=== PATIENT | male | born 1970 | race Caucasian/White ===

== ENCOUNTER 2023-07-13 08:28 | Outpatient (REF) | payer SELFPAY ==
[2023-07-13 14:27] LABS: MANUAL DIFF FLAG NO
[2023-07-13 14:32] LABS: Basophils Percent Auto 0.4 % (0-2); Eosinophils Absolute Auto 0.1 X10*3/uL (0.0-0.4); Hematocrit 41.5 % (42.0-52.0); Hemoglobin 13.9 g/dl (14.0-18.0); Imm Gran Abs Auto 0.03 X10*3/uL (0.00-0.03); Imm Gran Pct Auto 0.4 % (0.0-0.4); Lymphocytes Absolute Auto 1.6 X10*3/uL (1.2-4.9); Lymphocytes Percent Auto 19.9 % (20-40); Mean Corpuscular HGB Conc 33.5 g/dl (31.0-36.0); Mean Corpuscular Hemoglobin 28.1 pg (27.0-33.0); Monocytes Absolute Auto 0.5 X10*3/uL (0.1-1.2); Monocytes Percent Auto 6.8 % (2-11); Neutrophils Absolute Auto 5.7 x10*3/uL (2.0-8.3); Neutrophils Percent Auto 71.5 % (45-73); Platelet Count 364 X10*3/uL (160-400); Red Blood Count 4.94 X10*6/uL (4.60-5.80); White Blood Count 7.9 X10*3/uL (4.8-10.8)
[2023-07-14 02:04] LABS: Alanine Aminotransferase 30 U/L (0-40); Albumin Level 4.5 g/dL (3.5-5.0); Alkaline Phosphatase 102 U/L (39-117); Anion Gap 13 (12-20); Aspartate Amino Transferase 25 U/L (5-37); Bilirubin Total 0.6 mg/dL (0.0-1.0); Blood Urea Nitrogen 16 mg/dL (9-16); Carbon Dioxide 22 mmol/L (22-29); Chloride 105 mmol/L (96-108); Cholesterol 100 mg/dL; Estimated Glomerular Filt Rate > 60; Glucose Fasting 100 mg/dL (60-99); HDL Cholesterol 33 mg/dL; LDL Cholesterol Calculated 57 mg/dl; Potassium 4.7 mmol/L (3.3-5.1); Sodium 135 mmol/L (135-145); Total Protein 7.2 g/dL (6.5-8.0); Triglycerides 50 mg/dL
[2023-07-14 02:35] LABS: Creatinine Urine 196.58 mg/dL; Microalbum/Creatinine Ratio Ur 44.2 ug/mg cr
[2023-07-14 05:18] LABS: HBS Num1 0.69 mIU/mL (0-7.99); HBsAGNum1 0.46 S/CO (0.00-0.99); HIV AB/AG Nonreactive (Nonreactive); HIV Num 1 0.06 S/CO (0.00-0.99); Hepatitis B Surface Antigen Negative (Negative); ~HepC Num1 0.06 S/CO (0.00-0.79); ~Hepatitis B Surface Antibody NONREACTIVE (Nonreactive); ~Hepatitis C Antibody Nonreactive (Nonreactive)
== END 2023-07-13 08:29 | disposition home or self-care (01) ==
LOC: HO.CHCLDS 08:28
PROVIDERS: Visit Provider Family Medicine
DX: Z11.4 Encounter for screening for human immunodeficiency virus [HIV] (principal); E11.65 Type 2 diabetes mellitus with hyperglycemia; Z79.4 Long term (current) use of insulin
CPT/HCPCS: 36415; 80053; 80061; 82043; 85025; 86706; 86803; 87340; 87389

== ENCOUNTER 2024-09-27 15:00 | Outpatient (AMB) | payer OTHER, SELFPAY ==
--- NOTE | 2024-09-27 15:17 | A.OFFVIS_ITS ---
Intake Visit Reasons: penile implant failure Intake Note: New patient is present for Penile Implant Failure Patient states that his implant was placed 10 years ago in [place] does not remember name of Dr who performed surgery Medical Insurance Clerk Required: No Allergies No Known Allergies Allergy (Verified 11/16/24 15:37) HPI Comments Details: Osmin is a pleasant male. He is a patient of Dr. Campbell. He is seen for following urologic issues - elevated PSA - erectile dysfunction with penile prosthetic Here for question of malfunction of penile prosthetic On examination is able to be inflated He has difficulty with inflating balloon and self deflation Plan for revision - he would like this done in late November, early December Elevated PSA PSA 09/22 - 6.2 Repeat PSA in 2 months May benefit from prostate biopsy [facility] Surgical History History of penile implant Review of Systems Const Denies chills and Denies fever(s) Card Reports no additional complaints and Denies syncope Resp Denies cough GI Denies abdominal pain and Denies heartburn Reports as per HPI and Denies change in libido Neuro Denies syncope Psych Denies change in libido Endo Denies change in libido Physical Exam Const General: cooperative, healthy appearing, comfortable and no acute distress Orientation/consciousness: patient oriented x3 HEENT Face and sinus: Yes normal facial exam Mouth: moist mucous membranes Neck Neck: Yes normal visual inspection, Yes full ROM and Yes trachea midline Chest Chest palpation & inspection: normal inspection of the chest Resp Effort & Inspection: normal respiratory effort, able to speak in complete sentences and no respiratory distress GI Inspection: Yes normal to inspection Back/Spine/Pelvis Cervical Spine: normal cervical lordosis Thoracic/Lumbar Spine: thoracic and lumbar spine normal to inspection Skin General skin exam: no rashes or lesions noted Neuro General: patient oriented x3, gait normal, tone normal and moves all extremities Extrem General: Yes normal to inspection and Yes capillary refill normal Assessment & Plan Assessment & Plan (1) Malfunction of penile prosthesis: Code(s): T83.490A - Other mechanical complication of implanted penile prosthesis, initial encounter Category: Medical Plan Risks, benefits and alternatives to therapy were discussed. These include but are not limited to infection, bleeding, damage to local organs and tissues, need for further interventions. Anesthetic risks regarding cardiac arrhythmia, blood clots, and potential mortality were discussed. The patient understands the typical recovery time and the outpatient nature of the procedure. After consideration of these risks the patient gives full informed consent and they wish to move ahead with the procedure. Plan revision penile prosthetic Patient Instructions: Imaging studies, laboratory and physical exam results were discussed and reviewed in detail. No major barriers to patient understanding were identified. An opportunity to ask questions regarding the treatment plan was provided. All questions were answered. The patient expressed understanding and agreement with the above treatment plan. The patient is aware they should contact our office by phone for worsening of their current condition or the appearance of new urologic symptoms. Compliance is encouraged with any medications and followup testing that is ordered. It is a privilege to participate in the urologic care of your patient. If you have any questions or concerns regarding treatment for the above conditions, or other urologic issues, please do not hesitate to contact me. The office telephone contact is [phone]. This note is constructed using voice recognition software. While every effort has been made to ensure accuracy television news photographer errors may have been included. Yours sincerely, Dr Hollis Harris MD, [facility] - Urology Providers of Expert, Compassionate Care for the Genitourinary System Coding Level of Care Code New Pt Level 3 (29874) Diagnoses Malfunction of penile prosthesis T83.490A
== END 2024-09-27 16:08 | disposition home or self-care (01) ==
LOC: HO.HUSH 15:01
PROVIDERS: PCP Family Medicine; Visit Provider Urology
DX: T83.490A Other mechanical complication of implanted penile prosthesis, initial encounter (principal)
CPT/HCPCS: 99203

== ENCOUNTER → 2024-09-27 15:00 | Outpatient (BNVA) | payer OTHER, SELFPAY | PROVIDERS: PCP Family Medicine; Visit Provider Urology ==

== ENCOUNTER 2024-11-16 15:28 | Outpatient (AMB) | payer OTHER, SELFPAY ==
--- NOTE | 2024-11-16 15:30 | MHC.OFFVIS ---
Intake Visit Reasons: PSA results discussion Intake Note: Patient is Present for Follow Up PSA Urology Medication: None Antibiotic Allergies: None Blood Thinners:None Patient is concerned about his Current PSA Results Manager In Home Required: No Accompanied by: Self / Same As Patient Allergies No Known Allergies Allergy (Verified 11/16/24 15:37) HPI Comments Details: Osmin is a pleasant male. He is a patient of Dr. Campbell. He is seen for following urologic issues - elevated PSA Telemedicine Evaluation 15 min Consultation [facility] [facility] Elevated PSA PSA 09/22 - 6.2 Repeat PSA in 2 months May benefit from prostate biopsy [facility] Surgical History History of penile implant Review of Systems Const All systems reviewed & are unremarkable except as noted in HPI and below Reports no additional complaints Resp Reports no additional complaints GI Reports no additional complaints Reports as per HPI Musc Reports no additional complaints Physical Exam Telemedicine evaluation Appropriate responses Regular breathing rate and rhythm HEENT Head: Yes normal to inspection Ears: hearing grossly normal bilaterally Eyes General: appearance normal, both eyes and all related structures Neck Neck: Yes normal visual inspection Chest Chest palpation & inspection: normal inspection of the chest Resp Effort & Inspection: normal respiratory effort and able to speak in complete sentences Telehealth Telehealth Telehealth Platform: Telephone Location of provider rendering services: practice address Location of patient: address on file Patient Identification confirmed using: Name, : Yes Telehealth method: voice only Patient verbally consented to treatment: Yes Patient verbally consented to billing insurance company: Yes Patient informed of any privacy concerns related to visit: Yes Assessment & Plan Assessment & Plan (1) Elevated PSA: Code(s): R97.20 - Elevated prostate specific antigen [PSA] Category: Medical Plan Two month follow-up repeat labs Orders: Orders PSA,Total (Free>4and<10) 2 Months R97.20 - Elevated prostate specific antigen [PSA] Patient Instructions: Imaging studies, laboratory and physical exam results were discussed and reviewed in detail. No major barriers to patient understanding were identified. An opportunity to ask questions regarding the treatment plan was provided. All questions were answered. The patient expressed understanding and agreement with the above treatment plan. The patient is aware they should contact our office by phone for worsening of their current condition or the appearance of new urologic symptoms. Compliance is encouraged with any medications and followup testing that is ordered. It is a privilege to participate in the urologic care of your patient. If you have any questions or concerns regarding treatment for the above conditions, or other urologic issues, please do not hesitate to contact me. The office telephone contact is [phone]. This note is constructed using voice recognition software. While every effort has been made to ensure accuracy health benefits specialist errors may have been included. Yours sincerely, Dr Hollis Harris MD, [facility] - Urology Providers of Expert, Compassionate Care for the Genitourinary System Coding Level of Care Code Tele Est Pt Level 3 (54707) Diagnoses Elevated PSA R97.20
--- OUTSIDE RECORDS SUMMARY | 2024-11-16 16:02 | XMS_ITS ---
Author Name [facility] Unknown History of Medication Use Medication Directions Dispensed Refills Start Date End Date Stat Trulicity 3 MG/0.5ML prefilled pen injection Inject 3 mg under the skin once a week. 03/28/2023 active atorvastatin (LIPITOR) 40 MG tablet Take 1 tablet (40 mg total) by mouth daily. 03/28/2023 active metFORMIN (GLUCOPHAGE) 500 MG tablet Take 2 tablets (1,000 mg total) by mouth 2 (two) times a day with meals. 03/28/2023 active acetaminophen (TYLENOL) 325 MG tablet Take 3 tablets (975 mg total) by mouth 4 times daily (every 6 hours) as needed for mild pain. 03/28/2023 active Lantus SoloStar 100 UNIT/ML prefilled pen injection Inject 26 Units under the skin every evening. 03/28/2023 active lisinopril (PRINIVIL,ZeSTRIL) 20 MG tablet Take 1 tablet (20 mg total) by mouth daily. 03/28/2023 active Problems Problem Status Onset Date Problem Type Date of Resoluti on Source Acute appendicitis active 2023-03-03 [facility]
== END 2024-11-16 16:34 | disposition home or self-care (01) ==
LOC: HO.HUSH 15:28
PROVIDERS: PCP Family Medicine; Visit Provider Urology
DX: R97.20 Elevated prostate specific antigen [PSA] (principal)
CPT/HCPCS: 99213

== ENCOUNTER → 2024-11-16 15:28 | Outpatient (BNVA) | payer OTHER, SELFPAY | PROVIDERS: PCP Family Medicine; Visit Provider Urology ==

== ENCOUNTER 2025-03-10 11:09 | Outpatient (AMB) | payer OTHER, SELFPAY ==
--- NOTE | 2025-03-10 11:13 | MHC.OFFVIS ---
Vital Signs 03/10/25 11:34 Height 5 ft 9 in Weight 196 lb 10.437 oz BMI 29.0 BP 132/78 Blood Pressure Location Rt brachial Position Sitting Pulse 90 Pulse Source Pulse Oximeter Pulse Oximetry (%) 97 Oxygen Delivery Method Room Air Intake Visit Reasons: Colonoscopy Screening Intake Note: NEW PATIENT for initial colo screening. Chief Complaint; Pt denies any GI sx or concerns at this time. No pertinent FMHx. [employer]iconductor Packages Platemaker Required: No Accompanied by: Self / Same As Patient Allergies No Known Allergies Allergy (Verified 03/10/25 11:13) Medication List - Last Reconciled 03/10/25 by Bailey Breaux, BENEFITS SALES CONSULTANT-BC atorvastatin 40 mg PO DAILY blood sugar diagnostic (Accu-Chek Guide test strips) As directed insulin glargine (Lantus Solostar U-100 Insulin) units subcut lisinopril-hydrochlorothiazide 20-12.5 mg 1 tab PO DAILY metformin 1,000 mg PO BID tirzepatide (Mounjaro) mg subcut HPI HPI Colonoscopy Screening: Details: 54 year old? male final with past medical history of hyperlipidemia, hypertension, diabetes is here today for pre colonoscopy screening.? Patient was sent to us by his PCP.? This is his first colonoscopy screening.? Patient denies any gastrointestinal symptoms in the past or at present.? Denies any personal or family history of gastrointestinal disease, colon polyps, or CRC.? Denies history of difficulty with sedation or anesthesia in the past.? Negative for history of sleep apnea.? Denies any history of cardiac, renal, pulmonary, or hepatic disease.?? No history of infectious? diseases like hepatitis A, B, C, HIV or tuberculosis.? Patient is not on any anticoagulation [facility] Medical History Diabetes mellitus HTN (hypertension) HLD (hyperlipidemia) Surgical History History of penile implant Social History Alcohol intake: former Patient Tobacco Use Status: Never used Tobacco Use of substances other than those prescribed or required for medical reasons: No Review of Systems Const Denies weight gain and Denies weight loss ENT Reports no additional complaints, Denies dysphagia and Denies odynophagia Card Reports no additional complaints Resp Reports no additional complaints GI Denies abdominal pain, Denies belching, Denies melena, Denies bloating, Denies change in bowel habits, Denies dysphagia, Denies excessive flatus, Denies dyspepsia, Denies heartburn, Denies diarrhea, Denies loose stools, Denies nausea, Denies odynophagia and Denies vomiting Reports no additional complaints Musc Reports no additional complaints Neuro Reports no additional complaints Psych Reports no additional complaints Endo Reports no additional complaints Physical Exam Vital Signs: Last Vital Signs Pulse 90 03/10/25 11:34 BP 132/78 03/10/25 11:34 Pulse Ox 97 03/10/25 11:34 Oxygen Delivery Method Room Air 03/10/25 11:34 BMI result Body Mass Index 29.0 Const General: healthy appearing, no acute distress and well developed Nutritional Appearance: well nourished Orientation/consciousness: patient oriented x3 Resp Effort & Inspection: normal respiratory effort, able to speak in complete sentences, no tracheal deviation and symmetric chest movement Auscultation: clear to auscultation bilaterally Cardio Rate: regular rate GI Inspection: Yes normal to inspection and No distended Palpation (GI): Soft to palpation, not firm, nontender and No hepatosplenomegaly present Auscultation: normal bowel sounds General: Yes no CVA tenderness Back/Spine/Pelvis Back: no CVA tenderness Skin General skin exam: elasticity normal, turgor normal and dry skin Neuro General: patient oriented x3 Psych Appearance: grossly normal Mental Status: mental status grossly normal Assessment & Plan Assessment & Plan (1) Screen for colon cancer: Code(s): Z12.11 - Encounter for screening for malignant neoplasm of colon Plan Patient denies any GI, cardiac or respiratory symptoms.? Denies any issues with anesthesia in the past.? Denies any history of sleep apnea.? No history infectious diseases in the past or present.? Not on any anticoagulation therapy.? No family or personal history of colon cancer or polyps.? Patient denies melena, hematochezia, unintentional weight loss or ribbon like stools.? Discussed at length the pre-procedure,? prep, diet & medications as well as what to expect prior, during and after the procedure.?? Stressed the importance of good bowel prep.? Recommended the use of Vaseline or Calmoseptine OTC & baby wipes with bowel movements to promote comfort.? ?Patient verbalizes understanding and agrees to plan of care.? He was given the opportunity to ask questions and all questions answered.? We will see him after the procedure.? Medications: New bisacodyl (Dulcolax (bisacodyl)) take 4 tabs at noon the day before your colonoscopy 20 mg (4 x 5 mg) PO ONCE 1 day 4 tabs 0RF Z12.11 - Encounter for screening for malignant neoplasm of colon polyethylene glycol 3350 (Miralax) As directed by gastroenterology department at [facility] 238 grams PO ONCE 238 grams 0RF Z12.11 - Encounter for screening for malignant neoplasm of colon Coding Level of Care Code New Pt Level 3 (21455) Diagnoses Screen for colon cancer Z12.11 Time Spent (min) 40 Comment 30 minutes spent with patient and additional 10 minutes spent reviewing his records
[2025-03-10 11:34] VITALS: BP 132/78; PULSE 90; O2SAT 97; BMI 29.0
--- OUTSIDE RECORDS SUMMARY | 2025-03-10 12:10 | XMS_ITS | Encounter Summary ---
Author Organization [employer] Address [address] [place] [address] Care Team Providers Care Resident Doctor Name Role Phone Carolina Campbell MD Primary Care Provider [phone] Reason for Visit * Reason Onset Date Comments Med Refill 05/24/2024 Encounter Details Date Type Department Care Team ([facility] Contact Info) Description 05/24/2024 Refill [facility] MED & PEDS [address] [place], [place] [phone] Carolina Campbell MD [address] [place] [address] Essential hypertension; Type 2 diabetes mellitus with hyperglycemia, with long-term current use of insulin ([facility]) Social History Tobacco Use Types Packs/Day Years Used Date Smoking Tobacco: Never Passive Smoke Exposure: Never Smokeless Tobacco: Never Alcohol Use Standard Drinks/Week Comments Never 0 (1 standard drink = 0.6 oz pur e alcohol) Depression Answer Date Recorded Patient Health Questionnaire-9 Score 0 12/24/2022 Housing Stability Answer Date Recorded What is your housing situation today? I have espniozanataliia carrillo 09/14/[address] you [...] hyperglycemia, with long-term current use of insulin ([facility]) documented in this encounter Additional Health Concerns Assessment Noted Time PHQ-9 Depression Total Score: 0 12/24/19 23 4:13 PM EST documented as of this encounter Care Teams Resident Doctor Relationship Specialty Start Date End Date Carolina Campbell MD [address] [place] [address] PCP - General Family Medicine 06/26/22 02/18/25 documented as of this encounter
--- OUTSIDE RECORDS SUMMARY | 2025-03-10 12:10 | XMS_ITS | Encounter Summary ---
Author Organization [employer] Address [address] [place] [address] Care Team Providers Care Assistant Professor Of Chemistry Name Role Phone Carolina Campbell MD Primary Care Provider [phone] Encounter Details Date Type Department Care Team ([facility] st Contact Info) Description 04/29/2023 [facility] Information Management [address] [place] [address] Carolina Campbell MD [address] [place] [address] Social History Tobacco Use Types Packs/Day Years [...] documented as of this encounter Care Teams Assistant Professor Of Chemistry Relationship Specialty Start Date End Date Carolina Campbell MD [address] [place] [address] PCP - General Family Medicine 06/26/22 02/18/25 documented as of this encounter
--- OUTSIDE RECORDS SUMMARY | 2025-03-10 12:10 | XMS_ITS | Encounter Summary ---
Author Organization [employer] Address [address] [place] [address] Care Team Providers Care Production Mechanic Name Role Phone Carolina Campbell MD Primary Care Provider [phone] Reason for Visit * Reason Comments Med Refill Encounter Details Date Type Department Care Team ([facility] Contact Info) Description 02/17/2024 Refill [facility] CHC MED & PEDS [address] [place], [place] [phone] Carolina Campbell MD [address] [place] [address] Type 2 diabetes mellitus with hyperglycemia, with long-term current use of insulin ([facility]) Social History Tobacco Use Types Packs/Day Years [...] hyperglycemia, with long-term current use of insulin ([facility]) documented in this encounter Additional Health Concerns Assessment Noted Time PHQ-9 Depression Total Score: 0 12/24/19 23 4:13 PM EST documented as of this encounter Care Teams Production Mechanic Relationship Specialty Start Date End Date Carolina Campbell MD [address] [place] [address] PCP - General Family Medicine 06/26/22 02/18/25 documented as of this encounter
--- OUTSIDE RECORDS SUMMARY | 2025-03-10 12:10 | XMS_ITS | Clinical Summary ---
Author Organization [facility] Address [address] [place] [address] Care Team Providers Care Ground Crew Supervisor Name Role Phone Rosangela Rodriguez MD Primary [...] this topic Medical Devices Implanted Type Area Painter Decorator Device Identifier Shelf Expiration Date Model / Serial / Lot Prosthesis Ams 700 Accessory Kit Penile - [id number] - [id number] Implanted:Qty: 1 on 08/24/2014 by Arlene Hawley MD at [facility] and Med N/A: Penis [employer] 08/01/2019 [id number] / / [id number] Prosthesis Ams 700ms 18cm 12mm Erectile Catholic Tactile - [id number] - [id number] Implanted:Qty: 1 on 08/24/2014 by Arlene Hawley MD at [facility] and Med N/A: Penis [employer] 05/03/2016 [id number] / / [id number] Prosthesis Ams 700ms 65ml [place] Penile - [id number] - [id number] Implanted:Qty: 1 on 08/24/2014 by Arlene Hawley MD at [facility] and Med N/A: Penis [employer] 06/15/2016 [id number] / / [id number] Rear Tip Pneumatic Tube Fitter Implanted:Qty: 1 on 08/24/2014 by Arlene Hawley MD at [facility] and Med N/A: Penis 04/27/2018 / / [id number] Description:Ref # [id number] Advance Directives For more information, please contact: [phone] Latest Code Status on File Code Status Date Activated Date Inactivated Comments Full Code 08/24/2014 11:18 AM 08/25/2014 9:10 PM This code status was ascertained in the following way: discussion with patient. Care Teams Ground Crew Supervisor Relationship Specialty Start Date End Date Rosangela Rodriguez MD PCP - General Internal Medicine 09/12/24
--- OUTSIDE RECORDS SUMMARY | 2025-03-10 12:10 | XMS_ITS | Encounter Summary ---
Author Organization [employer] Address [address] [place] [address] Care Team Providers Care Digital Solutions Architect Name Role Phone Carolina Campbell MD Primary Care Provider [phone] Reason for Visit * Reason Onset Date Comments Referral 07/08/2024 Encounter Details Date Type Department Care Team ([facility] st Contact Info) Description 07/08/2024 Telephone [facility] MEDICINE [address] [place] [address] Carolina Campbell MD [address] [place] [address] Referral Social History Tobacco Use Types Packs/Day [...] and was advised to return call however journalists and other writers does not see anything noted * Telephone [...] a urology referral, no further details provided. Lebanese speaker documented in this encounter Plan of Treatment Not on file documented as of this encounter Visit Diagnoses Not on filedocumented in this encounter Additional Health Concerns Assessment Noted Time PHQ-9 Depression Total Score: 0 12/24/19 23 4:13 PM EST documented as of this encounter Care Teams Digital Solutions Architect Relationship Specialty Start Date End Date Carolina Campbell MD [address] [place] [address] PCP - General Family Medicine 06/26/22 02/18/25 documented as of this encounter
--- OUTSIDE RECORDS SUMMARY | 2025-03-10 12:10 | XMS_ITS | Clinical Summary ---
Author Organization [facility] Address [address] [place] [address] Care Team Providers Care District Fire Chief Name Role Phone Rosangela Rodriguez MD Primary Care Provider [phone] Allergies No known active allergies Medications pen [...] 10 mL 2 01/14/20 25 025 Active ammonium lactate (AmLactin) 12 % lotion Apply topically if needed for dry skin. 400 g 01/25/20 25 026 Active hydroCHLOROthi azide 12.5 mg tablet Take 1 tablet (12.5 mg total) by mouth 1 (one) time each day. 90 each 01/25/20 25 025 Active blood-glucose sensor (FreeStyle Kenneth 3 Plus Sensor) deviceIndicati ons:Type 2 diabetes mellitus with hyperglycemia, with long-term current use of insulin ([facility] V24, [facility] V28) 1 EA every 14 (fourteen) days. Box = Kit = EA 6 each 3 02/14/20 25 026 Active tirzepatide (MOUNJARO) 5 mg/0.5 mL injectionIndic ations:Type 2 diabetes mellitus with hyperglycemia, with long-term current use of insulin ([facility] V24, [facility] V28) Inject 0.5 mL (5 mg total) under the skin every 7 (seven) days. 4 mL 02/14/20 25 025 Active tirzepatide (MOUNJARO) 2.5 mg/0.5 mL injectionIndic ations:Type 2 diabetes mellitus with hyperglycemia, with long-term current use of insulin ([facility] V24, [facility] V28) Inject 0.5 mL (2.5 mg total) under the skin every 7 (seven) days. 2 mL 01/25/20 25 025 Discontinued blood-glucose sensor (FreeStyle Kenneth 3 Plus Sensor) deviceIndicati ons:Type 2 diabetes mellitus with hyperglycemia, with long-term current use of insulin ([facility] V24, [facility] V28) 1 EA every 14 (fourteen) days. Box = Kit = EA 6 each 3 01/25/20 25 025 Discontinued(Re order) bismuth-metroN IDAZOLE-tetrac ycline (Pylera) 140-125-125 mg per capsule Take 3 capsules by mouth 4 (four) times a day (before meals and nightly) for 14 days. Follow each dose with 8 oz of water. 168 capsule 02/14/20 25 025 Active Problems Problem Noted Date Diagnosed Date Failure of penile implant ([facility] V24) 07/29/20 24 Lateral epicondylitis of right elbow 07/07/2023 Acute appendicitis 03/03/2023 Overview (12/08/2024): Added automatically from request for surgery [id number] Diabetes mellitus ([facility] V24, [facility] V28) Obesity 11/13/2011 Pure hypercholesterolemia 11/13/2011 Essential hypertension 11/15/2010 Backache 07/29/2010 Encounters Date Type Department Care Team Description 02/13/2025 8:30 AM EDT Telemedicine [address] [address] Rosangela Rodriguez MD Helicobacter pylori gastritis (Primary Dx); Type 2 diabetes mellitus with hyperglycemia, with long-term current use of insulin ([facility] V24, [facility] V28) 01/25/2025 9:00 AM EST Office Visit [address] [address] Rosangela Rodriguez MD Type 2 diabetes mellitus with hyperglycemia, with long-term current use of insulin ([facility] V24, [facility] V28) (Primary Dx); Primary hypertension; Hypercholesteremia; Hypertriglyceridemia; B12 deficiency; Dry skin; Lower extremity edema from Last 3 Months Immunizations Name Administration [...] PROSTHESIS PENILE; Surgeon: Arlene Hawley MD; Location: [facility] MAIN OPERATING ROOM; Service: Urology; Laterality: N/A; Medical History Medical History Date Comments Diabetes mellitus type II, c ontrolled ([facility] V24, [facility] V28) DX:Diabetes mellitus type I I, controlled ([facility]) Social History Tobacco Use Types Packs/Day Years [...] Care Team (Late st Contact Info) Description 04/11/2025 9:15 AM EDT Office Visit [facility] [place] [address] [place] [address] Rosangela Rodriguez MD [address] [facility] [address] [place] [address] Health Maintenance Due Date Last [...] age to complete this topic Meningococcal B Vaccine Aged Out No l onger eligible based on patient's age to complete [...] hyperglycemia, with long-term current use of insulin (CMS/HCC V24, CMS/HCC V28) LIPID PANEL Routine 01/16/2025 8:16 AM EST Type 2 diabetes mellitus with hyperglycemia, with long-term current use of insulin (CMS/HCC V24, CMS/HCC V28) VITAMIN B12 AND FOLATE Routine 8:16 AM EST Type 2 diabetes mellitus with hyperglycemia, with long-term current use of insulin (CMS/HCC V24, CMS/HCC V28) COMPREHENSIVE METABOLIC PANEL Routine 01/16/2025 8:16 AM EST Type 2 diabetes mellitus with hyperglycemia, with long-term current use of insulin (CMS/HCC V24, CMS/HCC V28) HM HEPATITIS C SCREENING Routine 09/13/2024 HM URINE ALBUMIN CREATININE RATIO Routine 09/13/2024 HM HIV SCREENING Routine 07/13/2023 from Last 3 Months or Most Recently Relevant to Health Maintenance Results * (ABNORMAL) Helicobacter pylori breath test (02/06/2025 9:00 AM EDT) Pathologist [facility] Helicobacter pylori Breath Test DETECTED( A) NOT DETECTED [facility] Comment: Antimicrobials, proton pump inhibitors, and bismuth [...] 02/07/2025 3:10 PM EDT SPLIT 01/16/2025 FROM [id number] Rosangela Rodriguez MD LAB BODY FLUIDS AND STOOLS O RDERABLES Final Result [facility] ([facility] [address] [place] [phone] * Vitamin B12 and folate (01/16/2025 8:16 AM EST) [facility] Vitamin B12 719 200 - 1,100 pg/mL [facility] Folate Serum 22.8 ng/mL [facility] Comment: ? Reference Range ? Low: ? <3.4 ? Borderline: ?3.4-5.4 ? Normal: ?>5.4 Blood Venous blood specimen / Unknown 01/16/2025 8:16 AM EST 01/16/2025 8:16 AM EST Narrative IFTIKH[facility]AS ([facility]ACE) - 01/16/2025 11:07 PM EST FASTING:YES PATIENT REFUSED SOME TESTING; PATIENT ENCOURAGED TO RETURN. FASTING: YES Rosangela Rodriguez MD LAB BLOOD ORDERABLES Final R ult Performing Organization Address City/[facility] Co de Phone Number IFTIKHAR CASAS (CANDACE) [facility] [address] [place] [address] * (ABNORMAL) Hemoglobin A1c (01/16/2025 8:16 AM EST) Hemoglobin A1C 8.7(H) <5.7 % of total Hgb [facility] Comment: For someone without known diabetes, a [...] 8:16 AM EST 01/16/2025 8:16 AM EST Cristal CASAS (CANDACE) - 01/16/2025 11:07 PM EST FASTING:YES PATIENT REFUSED SOME TESTING; PATIENT ENCOURAGED TO RETURN. FASTING: YES Rosangela Rodriguez MD LAB BLOOD ORDERABLES Final R ult IFTIKHAR CASAS (CANDACE) [facility] [address] [place] [address] * (ABNORMAL) Lipid panel (01/16/2025 8:16 AM EST) Cholesterol Total 183 <200 mg/dL [facility] HDL Cholesterol 39(L) > OR = 40 mg/dL [facility] Triglycerides 121 <150 mg/dL [facility] LDL Cholesterol 121(H) mg/dL (calc) [facility] Comment: Reference range: <100 Desirable range <100 mg/dL for primary prevention; ?? <70 mg/dL for patients with CHD or diabetic patients with > or = 2 CHD risk factors. LDL-C is now calculated using the Farzaneh calculation, which is a validated novel method providing better accuracy than the Friedewald equation in the estimation of LDL-C. Seth SS et al. DYLAN. 2013;310(15): 5209-8320 (http://education.RescueTime/faq/FCV185) Chol/HDLC Ratio 4.7 <5.0 (calc) [facility] Non HDL Cholesterol 144(H) <130 mg/dL (calc) [facility] Comment: For patients with diabetes plus 1 major ASCVD risk factor, treating to a non-HDL-C goal of <100 mg/dL (LDL-C of <70 mg/dL) is considered a therapeutic option. Blood Venous blood specimen / Unknown 01/16/2025 8:16 AM EST 01/16/2025 8:16 AM EST Narrative [facility] ([facility]) - 01/16/2025 11:07 PM EST FASTING:YES PATIENT REFUSED SOME TESTING; PATIENT ENCOURAGED TO RETURN. FASTING: YES us Rosangela Rodriguez MD LAB BLOOD ORDERABLES Final R esult [facility] ([facility]) [facility] [address] [place] [phone] * (ABNORMAL) Comprehensive metabolic panel (01/16/2025 8:16 AM EST) Glucose 157(H) 65 - 99 mg/dL [facility] Comment: ? Fasting reference interval For someone without known diabetes, a glucose value >125 mg/dL indicates that they may have diabetes and this should be confirmed with a follow-up test. Urea Nitrogen (BUN) 25 7 - 25 mg/dL [facility] Creatinine 0.88 0.70 - 1.30 mg/dL [facility] eGFR 102 > OR = 60 mL/min/1 .73m2 [facility] BUN/Creatinine Ratio SEE NOTE: 6 - 22 (calc) [facility] Comment: ?? Not Reported: BUN and Creatinine are within ?? reference range. ? Sodium 135 135 - 146 mmol/L [facility] Potassium 5.1 3.5 - 5.3 mmol/L [facility] Chloride 99 98 - 110 mmol/L [facility] Carbon Dioxide 28 20 - 32 mmol/L [facility] Calcium 10.3 8.6 - 10.3 mg/dL [facility] Total Protein 7.3 6.1 - 8.1 g/dL [facility] Albumin 5.0 3.6 - 5.1 g/dL [facility] Globulin 2.3 1.9 - 3.7 g/dL (calc) [facility] Albumin/Globulin Ratio 2.2 1.0 - 2.5 (calc) [facility] Bilirubin Total 0.4 0.2 - 1.2 mg/dL [facility] Alkaline Phosphatase 124 35 - 144 U/L [facility] Aspartate aminotransferase??(A ST) 22 10 - 35 U/L [facility] Alanine Aminotransferase (ALT) 26 9 - 46 U/L [facility] Blood Venous blood specimen / Unknown 01/16/2025 8:16 AM EST 01/16/2025 8:16 AM EST Narrative [facility] ([facility]) - 01/16/2025 11:07 PM EST FASTING:YES PATIENT REFUSED SOME TESTING; PATIENT ENCOURAGED TO RETURN. FASTING: YES us Rosangela Rodriguez MD LAB BLOOD ORDERABLES Final R esult [facility] ([facility]) [facility] [address] [place] [phone] * Urine Albumin Creatinine Ratio (09/13/2024) Urine Albumin Creatinine Ratio Abstracted Historical Provider HEALTH MAINTENANCE Final Result * Hepatitis C Screening (09/13/2024) Hepatitis C Screening Abstracted Historical Provider HEALTH MAINTENANCE Final Result * HIV Screening (07/13/2023) Pathologist [facility] HIV Screening Abstracted Historical Provider HEALTH MAINTENANCE Final Result from Last 3 Months or Most Recently Relevant to Health Maintenance Insurance [facility] Care Teams District Fire Chief Relationship Specialty Start Date End Date Rosangela Rodriguez MD [address] [phone] PCP - General Internal Medicine 12/06/24
--- OUTSIDE RECORDS SUMMARY | 2025-03-10 12:10 | XMS_ITS | Clinical Summary ---
Author Organization [facility] Address [address] [place] [id number] Care Team Providers Care Acting Instructor Name Role Phone Rosangela Rodriguez MD Primary Care Provider Allergies No known active allergies Medications Medication [...] daily. Active acetaminophen (TYLENOL) 325 MG tabletIndications:Ac confed[place] appendicitis, unspecified acute appendicitis type Take 3 tablets (975 mg total) by mouth 4 times daily (every 6 hours) as needed for mild pain. 360 tablet 03/05/2023 Active zrrpda-adjpalryo-wni nesium sulfates (Suprep Bowel Prep Kit) 17.5-3.13-1.6 GM/177ML Solution solutionIndications: Dyspepsia,Colon cancer screening Follow directions provided by physician's office. 354 mL 12/27/2024 Active Active Problems Problem Noted Date Diagnosed Date Acute appendicitis 03/03/2023 Overview (03/04/2023): Added automatically from request for surgery [id number] Encounters Date Type Department Care Team Description 02/13/2025 Telephone [facility] [address] [place] [address] Xavier Banerjee MD 12/27/2024 8:00 AM EST Consult [facility] [address] [place] [id number] Xavier Banerjee MD Dyspepsia (Primary Dx); Colon [...] 12/27/2024 8:09 AM EST Plan of Treatment Health Maintenance Due Date [...] Inactivated Comments 03/04/2023 5:52 AM Care Teams Acting Instructor Relationship Specialty Start Date End Date Rosangela Rodriguez MD PCP - General 09/23/24
--- OUTSIDE RECORDS SUMMARY | 2025-03-10 12:10 | XMS_ITS | Clinical Summary ---
Author Organization [facility] Address [address] [place] [address] Care Team Providers Care Lean Manufacturing Specialist Name Role Phone Unavailable Primary Care Provider Unavailabl e Allergies No known active allergies Medications Alcohol [...] USE WITH INSULIN PEN DAILY 100 each 11 4 Active FreeStyle lancets 1 each by Other route 2 times daily. 100 each 4 Active glucose blood test stripIndications: Type 2 diabetes mellitus with hyperglycemia, with long-term current use of insulin ([facility]) Use to monitor for capillary glucose BID 100 each 11 4 04/13/20 25 Active insulin glargine (Lantus SoloStar) 100 UNIT/ML penIndications:Ty pe 2 diabetes mellitus with hyperglycemia, with long-term current use of insulin ([facility]) Inject 54 Units under the skin at bedtime. 45 mL 3 4 Active Dulaglutide (Trulicity) 1.5 MG/0.5ML solution auto-injectorIndi cations:Type 2 diabetes mellitus without complication, with long-term current use of insulin ([facility]) Inject 1.5 mg under the skin 1 [...] hyperglycemia, with long-term current use of insulin ([facility]) TAKE 2 TABLETS BY MOUTH TWICE DAILY [...] (07/07/2023): Added automatically from request for surgery [id number] Diabetes mellitus 11/13/2011 Assessment & Plan (06/27/2024 [...] 5:00 PM EST): Pt reports unable to sweet pickle maker rx given not available in [facility], called [facility] pharmacy they have availability hence will [...] target BP < 130/80 mmHg. Backache 07/29/2010 Immunizations Name Administration Dates Next Due Influenza [...] complication, with long-term current use of insulin (CMS/HCC) ALBUMIN, RANDOM URINE W/CREATININE Routine 07/13/2023 8:38 AM EDT Type 2 diabetes mellitus with hyperglycemia, with long-term current use of insulin ([facility]/H[facility]) HEPATITIS C ANTIBODY Routine 07/13/2023 8:34 AM EDT Encounter for health-related screening HIV ANTIBODY/ANTIGEN ([facility]) Routine 07/13/2023 8:34 AM EDT Type 2 diabetes mellitus with hyperglycemia, with long-term current use of insulin ([facility]/HCC) LIPID PANEL, STANDARD Routine 07/13/2023 8:34 AM EDT Type 2 diabetes mellitus with hyperglycemia, with long-term current use of insulin ([facility]/HCC) from Last 3 Months or Most Recently Relevant to Health Maintenance Results * (ABNORMAL) POCT HGB A1C (06/27/2024 4:40 PM EDT) Hemoglobin A1C 8.3(A) 4.0 - 6.0 % QC Media Lot # [id number] Lot# Expiration Date Blood 06/27/2024 4:40 PM EDT Carolina Campbell MD POINT OF CARE TEST ENTER/EDIT ORDERABLES Final Result * Albumin, Random Urine W/Creatinine (07/13/2023 8:38 AM EDT) Creatinine, Urine 196.58 mg/dL [facility] Microalbumin Urine 87.0 mg/L [facility] Microalbum Creatinine Ratio Ur 44.2 ug/mg cr [facility] Comment:Albumin/Creatinine R atio Reference Ranges: Normal: < 30 ug/mg creatinine Microalbuminuria: 30 - 300 ug/mg creatinineClinical Albuminuria: > 300 ug/mg creatinine 07/13/2023 8:38 AM EDT 07/13/2023 2:37 PM EDT Result [facility] Carolina Campbell MD LAB URINE ORDERABLES Final Re sult Performing Organization Address [facility] Co de Phone Number [facility] [address] [place] [phone] * Hepatitis C Ab (07/13/2023 8:34 AM EDT) Hepatitis C Antibody Nonreactive Nonreactive [facility] Comment:Antibodies to HCV no t detected; does not exclude early acuteHCV infection. Blood 07/13/2023 8:34 AM EDT 07/13/2023 2:25 PM EDT Result [facility] Carolina Campbell MD LAB BLOOD ORDERABLES Final Re sult Performing Organization Address [facility] Co de Phone Number [facility] [address] [place] [phone] * HIV Ab/Ag ([facility]) (07/13/2023 8:34 AM EDT) HIV AB/AG Nonreactive Nonreactive [facility] Comment:HIV-1 p24 Ag and/or HIV-1/HIV-2 Ab not detected.A test result that is nonreactive does not exclude thepossibility of exposure to or infection with HIV-1 and/orHIV-2. Nonreactive results in this assay for individualswith prior exposure to HIV-1 and/or HIV-2 may be due toantigen and antibody levels that are below the limit ofdetection of this assay.The [employer] Match Up Person HIV Ag/Ab Combo assay result andsupplemental assay results should be interpreted inconjunction with the patient's clinical presentation,history and other laboratory results. If the results areinconsistent with clinical evidence, additional testing issuggested to confirm the result. 07/13/2023 8:34 AM EDT 07/13/2023 2:25 PM EDT Result [facility] Carolina Campbell MD LAB BLOOD ORDERABLES Final Re sult Performing Organization Address [facility] de Phone Number [facility] [address] [place] [phone] * Lipid Panel, Standard (07/13/2023 8:34 AM EDT) Triglycerides 50 mg/dL [facility] Comment:Desirable Triglyceri de: less than 150 mg/dLBorderline High Triglyceride 150-199 mg/dLHigh Triglyceride: 200-499 mg/dLVery High Triglyceride: greater than or equal to 5OO mg/dL Cholesterol 100 mg/dL [facility] Comment:Desirable Cholestero l: less than 200 mg/dLBorderline High Cholesterol: 200-239 mg/dLHigh Cholesterol: greater than 239 mg/dL LDL Cholesterol Calculated 57 mg/dl [facility] Comment:Desirable LDL: less than 100 mg/dLNear Optimal/Above Optimal LDL: 110- 129 mg/dLBorderline High LDL: 130-159 mg/dLHigh LDL: 160-189 mg/dLVery High LDL: greater than or equal to 190 mg/dL HDL Cholesterol 33 mg/dL [facility] Comment:Desirable HDL: great er than 40 mg/dL Note: This HDL assay may give artificially low results in patients with liver disease. Blood Venous blood specimen / Unknown 07/13/2023 8:34 AM EDT 07/13/2023 2:25 PM EDT Carolina Campbell MD LAB BLOOD ORDERABLES Final Re sult Performing Organization Address [facility] Co de Phone Number [facility] [address] [place] [address] [phone] from Last 3 Months or Most Recently Relevant to Health Maintenance Insurance * Guarantor: Osmin Philippe Account Type Relation to Patient Date of Phone Billing Address Personal/Family Self [address] [place] [address] [address] [place] [address] [facility] , [address] [place] [id number]
--- OUTSIDE RECORDS SUMMARY | 2025-03-10 12:10 | XMS_ITS | Encounter Summary ---
Author Organization [facility] Address [address] [place] [address] Care Team Providers Care Component Technician Name Role Phone Rosangela Rodriguez MD Primary Care Provider + [phone] Encounter Details Date Type Department Care Team ([facility] Contact Info) Description 09/19/2024 10:00 AM EDT Hospital Encounter [facility] [address] [address] Rosangela Rodriguez MD [address] [address] Social History Tobacco Use Types [...] Upcoming Encounters Date Type Department Care Team ([facility] st Contact Info) Description 04/11/2025 9:15 AM EDT Office Visit Michael Guallpa [place] [address] [facility] [address] [place] [address] Rosangela Rodriguez MD [address] [facility] [address] [place] [address] documented as of this encounter Visit Diagnoses Not on filedocumented in this encounter Care Teams Component Technician Relationship Specialty Start Date End Date Rosangela Rodriguez MD PCP - General 09/13/24 12/05/24 documented as of this encounter
--- OUTSIDE RECORDS SUMMARY | 2025-03-10 12:10 | XMS_ITS | Encounter Summary ---
Author Organization [facility] Address [address] [place] [address] Care Team Providers Care Flyer Maker Name Role Phone Carolina Campbell MD Primary Care Provider [phone] Reason for Visit * Reason Comments Med Refill Encounter Details Date Type Department Care Team ([facility] Contact Info) Description 09/16/2024 Refill [facility] [address] [place], [place] [phone] Carolina Campbell MD [address] [place] [address] Type 2 diabetes mellitus without complication, with long-term current use of insulin ([facility]) Social History Tobacco Use Types Packs/Day [...] complication, with long-term current use of insulin ([facility]) documented in this encounter Additional Health Concerns Assessment Noted Time PHQ-9 Depression Total Score: 0 12/24/19 23 4:13 PM EST documented as of this encounter Care Teams Flyer Maker Relationship Specialty Start Date End Date Carolina Campbell MD [address] [place] [phone] PCP - General Family Medicine 06/26/22 02/18/25 documented as of this encounter
--- OUTSIDE RECORDS SUMMARY | 2025-03-10 12:10 | XMS_ITS | Encounter Summary ---
Author Organization [facility] Address [address] [place] [address] Care Team Providers Care Cable Braider Name Role Phone Rosagnela Rodriguez MD Primary Care Provider + [phone] Encounter Details Date Type Department Care Team ([facility] Contact Info) Description 09/12/2024 1:38 PM EDT Hospital Encounter [facility] [address] [address] Rosangela Rodriguez MD [address] [address] Social History Tobacco Use Types [...] Encounters Date Type Department Care Team (Late Contact Info) Description 04/11/2025 9:15 AM EDT Office Visit Michael Guallpa [place] [address] [facility] [address] [place] [address] Rosangela Rodriguez MD [address] [facility] [address] [place] [address] documented as of this encounter Visit Diagnoses Not on filedocumented in this encounter Care Teams Cable Braider Relationship Specialty Start Date End Date Rosangela Rodriguez MD PCP - General 09/12/24 09/12/24 documented as of this encounter
== END 2025-03-10 12:51 | disposition home or self-care (01) ==
LOC: HO.HGI 11:10
PROVIDERS: PCP Family Medicine; Visit Provider Nurse Practitioner Family
DX: Z01.818 Encounter for other preprocedural examination (principal); Z12.11 Encounter for screening for malignant neoplasm of colon
CPT/HCPCS: 99202

== ENCOUNTER 2025-03-27 05:59 | Day surgery (SDC) | payer OTHER, SELFPAY ==
--- OUTSIDE RECORDS SUMMARY | 2025-02-09 16:58 | XMS_ITS | Encounter Summary ---
Author Organization [employer] Address [address] [facility] [address] [place] [address] Care Team Providers Care Instructional Systems Design Consultant Name Role Phone aCrolina Campbell MD Primary Care Provider [phone] Reason for Visit * Reason Comments Med Refill Encounter Details Date Type Department Care Team ([facility] Contact Info) Description 09/16/[address] [facility] [address] [place], [place] [id number] Carolina Campbell MD [address] [place] [address] Type 2 diabetes mellitus without complication, with long-term current use of insulin ([facility]) Social History Tobacco Use Types Packs/Day Years Used Date Smoking Tobacco: Never Passive Smoke Exposure: Never Smokeless Tobacco: Never Alcohol Use Standard Drinks/Week Comments Never 0 (1 standard drink = 0.6 oz pur e alcohol) Depression Answer Date Recorded Patient Health Questionnaire-9 Score 0 12/24/2022 Housing Stability Answer Date Recorded What is your housing situation today? I have espinoza carrillo 09/14/[address] you li ve. Do you have problems with any of the following? None of the above 09/14/2023 Food Insecurity Answer Date Recorded Within the past 12 months, y ou worried that your food would run out before you got money to buy more: Never True 09/14/2023 Within the past 12 months,th e food you bought just didn't last and you didn't have enough money to get more: Never True Transportation Answer Date Recorded In the past 12 months, has l ack of transportation kept you from medical appts, meetings, work or from getting things needed for daily living? No 09/14/2023 Utilities Answer Date Recorded In the past 12 months, has t he electric, gas, oil or water company threatened to shut off services in your home? No 09/14/2023 Depression Answer Date Recorded Patient Health Questionnaire-2 Score 0 12/24/2022 Sex and Gender Information Value Date Recorded Sex Assigned at Male 09/29/2022 10:20 AM EDT Legal Sex Male 10:20 AM EDT Gender Identity Male 09/29/2022 10:20 AM EDT Sexual Orientation Don't know 09/29/2022 10 :20 AM EDT documented as of this encounter Plan of Treatment Not on file documented as of this encounter Visit Diagnoses Diagnosis Type 2 diabetes mellitus without complication, with long-term current use of insulin ([facility]) documented in this encounter Additional Health Concerns Assessment Noted Time PHQ-9 Depression Total Score: 0 12/24/19 23 4:13 PM EST documented as of this encounter Care Teams Instructional Systems Design Consultant Relationship Specialty Start Date End Date Carolina Campbell MD [address] [place] [id number] PCP - General Family Medicine 06/26/22 documented as of this encounter
--- OUTSIDE RECORDS SUMMARY | 2025-02-09 16:58 | XMS_ITS | Encounter Summary ---
Author Organization [facility] Address [address] [place] [address] Care Team Providers Care Clinical Rn Liaison Name Role Phone Rosangela [facility] MD Primary Care Provider [phone] Reason for Visit * Reason Comments Follow-up Encounter Details Date Type Department Care Team ([facility] st Contact Info) Description 01/25/2025 9:00 AM EST Office Visit [facility] [address] [address] Rosangela Rodriguez MD [address] [address] Type 2 diabetes mellitus with hyperglycemia, with long-term current use of insulin ([facility]) (Primary Dx); Primary hypertension; Hypercholesteremia; Hypertriglyceridemia; B12 deficiency; Dry skin; Lower extremity edema Social History Tobacco Use Types Packs/Day Years Used Date Smoking Tobacco: Never Tobacco Cessation:Counseling Given: Not Answered Alcohol Use Standard Drinks/Week Comments No 0 (1 standard drink = 0.6 oz pur e alcohol) Sex and Gender Information Value Date Recorded Sex Assigned at Not on file Legal Sex Male 10:06 AM EST Gender Identity Not on file Sexual Orientation Not on file documented as of this encounter Last Filed Vital Signs Vital Sign Reading Time Taken Comments Blood Pressure 140/80 01/25/2025 9:36 AM EST Pulse 74 01/25/2025 9:36 AM EST Temperature 36.5 ??C (97.7 ??F) 01/25/2025 9:36 AM ES T Respiratory Rate 16 01/25/2025 9:36 AM EST Oxygen Saturation 94% 01/25/2025 9:36 AM EST Inhaled Oxygen Concentration - - Weight 91.4 kg (201 lb 8 oz) 01/25/2025 9:36 AM EST Height 174 cm (5' 8.5 ) 01/25/2025 9:36 AM EST Body Mass Index 30.19 01/25/2025 9:36 AM EST documented in this encounter Ordered Prescriptions Prescription Sig Dispense Quantity Refills Last Filled Start Date End Date hydroCHLOROthiazid e 12.5 mg tablet Take 1 tablet (12.5 mg total) by mouth 1 (one) time each day. 90 each 01/25/2025 5 ammonium lactate (AmLactin) 12 % lotion Apply topically if needed for dry skin. 400 g 01/25/2025 6 blood-glucose sensor (FreeStyle Kenneth 3 Plus Sensor) deviceIndications: Type 2 diabetes mellitus with hyperglycemia, with long-term current use of insulin (CMS/HCC) 1 EA every 14 (fourteen) days. Box = Kit = EA 6 each 3 01/25/2025 6 tirzepatide (MOUNJARO) 2.5 mg/0.5 mL injectionIndicatio ns:Type 2 diabetes mellitus with hyperglycemia, with long-term current use of insulin (CMS/HCC) Inject 0.5 mL (2.5 mg total) under the skin every 7 (seven) days. 2 mL 01/25/2025 5 documented in this encounter Plan of Treatment Upcoming Encounters Date Type Department Care Team (Late st Contact Info) Description 02/13/2025 8:30 AM EDT Telemedicine [facility] [address] [facility] [address] [place] [address] Rosangela [facility] MD [address] [facility] [address] [place] [address] documented as of this encounter Visit Diagnoses Diagnosis Type 2 diabetes mellitus with hyperglycemia, with long-term current use of insulin (CMS/HCC)- Primary Primary hypertension Unspecified essential hypertension Hypercholesteremia Pure hypercholesterolemia Hypertriglyceridemia Pure hyperglyceridemia B12 deficiency Dry skin Other symptoms involving skin and integumentary tissues Lower extremity edema Edema documented in this encounter Discontinued Medications Medication Sig Discontinue Reason Start Date End Da te glyBURIDE (DIABETA) 2.5 mg tablet Take 1 tablet (2.5 mg total) by mouth. 01/25/2025 dulaglutide (TRULICITY SUBQ) Inject 0.5 mL under the skin 1 (one) time per week. 09/12/2024 01/25/2025 documented as of this encounter Care Teams Clinical Rn Liaison Relationship Specialty Start Date End Date Rosangela [facility] MD [facility] [address] [address] PCP - General Internal Medicine 12/06/24 documented as of this encounter
--- OUTSIDE RECORDS SUMMARY | 2025-02-09 16:58 | XMS_ITS | Encounter Summary ---
Author Organization [employer] Address [address] [place] [address] Care Team Providers Care Executive Communications Manager Name Role Phone Carolina Campbell MD Primary Care Provider [phone] Reason for Visit * Reason Onset Date Comments Med Refill 05/24/2024 Encounter Details Date Type Department Care Team ([facility] Contact Info) Description 05/24/2024 Refill [facility] [address] [place], [place] [id number] Carolina Campbell MD [address] [place] [address] Essential hypertension; Type 2 diabetes mellitus with hyperglycemia, with long-term current use of insulin ([facility]) Social History Tobacco Use Types Packs/Day Years Used Date Smoking Tobacco: Never Passive Smoke Exposure: Never Smokeless Tobacco: Never Alcohol Use Standard Drinks/Week Comments Never 0 (1 standard drink = 0.6 oz pur e alcohol) Depression Answer Date Recorded Patient Health Questionnaire-9 Score 0 12/24/2022 Housing Stability Answer Date Recorded What is your housing situation today? I have espinozanataliia carrillo 09/14/[address] you [...] as of this encounter Visit Diagnoses Diagnosis Essential hypertension Unspecified essential hypertension Type 2 diabetes mellitus with hyperglycemia, with long-term current use of insulin ([facility]) documented in this encounter Additional Health Concerns Assessment Noted Time PHQ-9 Depression Total Score: 0 12/24/19 23 4:13 PM EST documented as of this encounter Care Teams Executive Communications Manager Relationship Specialty Start Date End Date Carolina Campbell MD [address] [place] [address] PCP - General Family Medicine 06/26/22 documented as of this encounter
--- OUTSIDE RECORDS SUMMARY | 2025-02-09 16:58 | XMS_ITS | Clinical Summary ---
Author Organization [facility] Address [address] [place] [id number] Care Team Providers Care Architectural Administrative Assistant Name Role Phone Rosangela [facility] MD Primary Care Provider [phone] Allergies No known active allergies Medications Medication Sig Dispensed Refills Start Date End Date Status Trulicity 3 MG/0.5ML prefilled pen injection Inject 3 mg under the skin once a week. 02/18/2023 Active Lantus SoloStar 100 UNIT/ML prefilled pen injection Inject 26 Units under the skin every evening. 01/23/2023 Active lisinopril (PRINIVIL,ZeSTRIL) 20 MG tablet Take 1 tablet (20 mg total) by mouth daily. 12/25/2022 Active metFORMIN (GLUCOPHAGE) 500 MG tablet Take 2 tablets (1,000 mg total) by mouth 2 (two) times a day with meals. 01/23/2023 Active atorvastatin (LIPITOR) 40 MG tablet Take 1 tablet (40 mg total) by mouth daily. Active acetaminophen (TYLENOL) 325 MG tabletIndications:Ac luke appendicitis, unspecified acute appendicitis type Take 3 tablets (975 mg total) by mouth 4 times daily (every 6 hours) as needed for mild pain. 360 tablet 03/05/2023 Active eqhgnr-wancfjiks-yec nesium sulfates (Suprep Bowel Prep Kit) 17.5-3.13-1.6 GM/177ML Solution solutionIndications: Dyspepsia,Colon cancer screening Follow directions provided by physician's office. 354 mL 12/27/2024 Active Active Problems Problem Noted Date Diagnosed Date Acute appendicitis 03/03/2023 Overview (03/04/2023): Added automatically from request for surgery [id number] Encounters Date Type Department Care Team Description 12/27/2024 8:00 AM EST Consult [facility] [address] [place] [id number] Xavier Banerjee MD Dyspepsia (Primary Dx); Colon cancer screening from Last 3 Months Family History Medical History Relation Name Comments Colon cancer Neg Hx Colon polyps Neg Hx Social History Tobacco Use Types Packs/Day Years Used Date Smoking Tobacco: Never Passive Smoke Exposure: Never Smokeless Tobacco: Never Tobacco Cessation:Counseling Given: Not Answered AUDIT-C Answer Date Recorded Q1: How often do you have a drink containing alcohol? Never 03/04/2023 Q2: How many drinks containi ng alcohol do you have on a typical day when you are drinking? Patient does not drink Q3: How often do you have si x or more drinks on one occasion? Never 03/04/2023 Sex and Gender Information Value Date Recorded Sex Assigned at Male 03/04/2023 12:20 AM EDT Gender Identity Male 03/04/2023 12:20 AM EDT Sexual Orientation Heterosexual (straight) 03/04 12:20 AM EDT Last Filed Vital Signs Vital Sign Reading Time Taken Comments Blood Pressure 130/80 12/27/2024 8:09 AM EST Pulse 86 12/27/2024 8:09 AM EST Temperature 36.2 ??C (97.2 ??F) 03/05/2023 9:39 AM ED T Respiratory Rate 16 03/05/2023 9:14 AM EDT Oxygen Saturation 98% 03/05/2023 9:14 AM EDT Inhaled Oxygen Concentration - - Weight 83.9 kg (185 lb) 12/27/2024 8:09 AM EST Height 172.7 cm (5' 8 ) 12/27/2024 8:09 AM EST Body Mass Index 28.13 12/27/2024 8:09 AM EST Plan of Treatment Upcoming Encounters Date Type Department Care Team (Late st Contact Info) Description 03/01/2025 7:30 AM EDT Hospital Encounter [facility] [address] [place] [id number] Xavier Banerjee MD [address] [place] [address] [address] [place] [address] 03/01/2025 7:30 AM EDT - 03/01/2025 8:15 AM EDT Surgery [facility] ENDO PROC [facility] [address] [place] [address] Xavier Banerjee MD [address] [facility] [address] [place] [address] COLONOSCOPY Scheduled Procedures Name Priority Associated Diagnoses Date/Ti nv COLONOSCOPY Dyspepsia 03/01/2025 7:30 AM EDT ENDOSCOPY UPPER Dyspepsia 03/01/2025 7:30 AM EDT Health Maintenance Due Date Last Done Comments Hepatitis C Virus Screening 1970 HIV Screening 1983 DTaP/Tdap/Td Vaccines (1 - Tdap) 1989 Hepatitis B Vaccines (1 of 3 - 19+ 3-dose series) 1989 Colonoscopy 2015 Pneumococcal Vaccines 50+ (1 of 1 - PCV) 2020 Zoster (Shingles) Vaccine (1 of 2) 2020 COVID-19 Vaccine (5 - 2023-2 5 season) 2024 05/31/2022, 11/19/2021, 05/06/2021, Additional history exists Influenza Vaccine Completed 09/09/2024, , 09/19/2022, Additional history exists Advance Directives * Full Code (Latest Code Status on File) Date Activated Date Inactivated Comments 03/04/2023 5:52 AM Care Teams Architectural Administrative Assistant Relationship Specialty Start Date End Date Rosangela Rodriguez MD PCP - General 09/23/24
--- OUTSIDE RECORDS SUMMARY | 2025-02-09 16:58 | XMS_ITS | Clinical Summary ---
Author Organization [employer] Address [address] [facility] [address] [place] [address] Care Team Providers Care Primer Expeditor And Drier Name Role Phone Carolina Campbell MD Primary Care Provider [phone] Allergies No known active allergies Medications Alcohol Swabs (Alcohol Prep) 70 % pads USE TWICE DAILY 2 Active Blood Glucose Monitoring Suppl (Accu-Chek Guide Me) w/Device kit USE TO TEST BLOOD SUGARS DIRECTED 2 Active Blood Pressure Monitoring (Omron 3 Series BP Monitor) device Check blood pressure on arm as directed 1 each 3 Active acetaminophen (Tylenol) 325 MG tablet Take 975 mg by mouth every 6 (six) hours if needed. 3 Active diclofenac (Cataflam) 50 MG tablet Take 1 tablet (50 mg) by mouth 3 times daily. 60 tablet 4 Active B-D UF III MINI PEN NEEDLES 31G X 5 MM misc USE WITH INSULIN PEN DAILY 100 each 4 Active FreeStyle lancets 1 each by Other route 2 times daily. 100 each 11 4 Active glucose blood test stripIndications: Type 2 diabetes mellitus with hyperglycemia, with long-term current use of insulin ([facility]) Use to monitor for capillary glucose BID 100 each 11 4 04/13/20 25 Active insulin glargine (Lantus SoloStar) 100 UNIT/ML penIndications:Ty pe 2 diabetes mellitus with hyperglycemia, with long-term current use of insulin ([facility]) Inject 54 Units under the skin at bedtime. 45 mL 3 4 Active Dulaglutide (Trulicity) 1.5 MG/0.5ML solution auto-injectorIndi cations:Type 2 diabetes mellitus without complication, with long-term current use of insulin ([facility]) Inject 1.5 mg under the skin 1 (one) time per week. 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 Colon cancer screening 07/07/2023 Assessment & Plan (10/26/2023 1:10 PM EST): Sent for cologuard Lateral epicondylitis of right elbow 07/07/2023 Acute appendicitis 03/03/2023 Overview (07/07/2023): Added automatically from request for surgery [id number] Diabetes mellitus 11/13/2011 Assessment & Plan (06/27/2024 5:03 PM EDT): DM is uncontrolled. Increase Lantus to 54 units. Begin Trulicity 0.75 and continue Metformin. Assessment & Plan (03/18/2024 8:47 AM EDT): Lab Results Component Value Date HGBA1C 9.6 (A) 02/17/2024 Uncontrolled, improvement of fasting glucose with changes in insulin, will f/up in 3 months, recommended cont monitoring. Due to insurance issue has not been able to pickup GLP-1. Target A1c < 7%. Assessment & Plan (02/18/2024 2:57 AM EDT): Uncontrolled. A1C is 9.6% from last visit. Advised to continue monitoring and recording glucose readings. Asked to please bring these reading during next visit. Labs: Glucose, HGB A1C Assessment & Plan (10/26/2023 1:09 PM EST): Lab Results Component Value Date HGBA1C 6.2 (A) 10/21/2023 Controlled. On target. Cont current dose and f/up in 6 months Assessment & Plan (07/07/2023 4:30 PM EDT): Not completley controlled. POC a1c 7.4% Will increase trulicity from 3 mg to 4.5 mg. Will send labs to check levels. 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 Assessment & Plan (12/03/2022 4:44 PM EST): POC a1c 8.5% unchanged from previous, at this moment will incr trulicity to 3.0 mg/ week and followup within 3 months and assess. Cont current dose of lantus. Target fasting 80-130 mg/dL. Discussed cGM. Obesity 11/13/2011 Pure hypercholesterolemia 11/13/2011 Essential hypertension 11/15/2010 Assessment & Plan (06/27/2024 5:04 PM EDT): BP is slightly elevated but controlled overall. Continue on medication. Assessment & Plan (02/18/2024 2:56 AM EDT): Controlled. Cont current med regimen Assessment & Plan (10/26/2023 1:09 PM EST): Controlled. Cont current med regimen. Lab Results Component Value Date K 4.7 07/13/2023 Lab Results Component Value Date CREATININE 0.83 07/13/2023 Assessment & Plan (07/07/2023 4:30 PM EDT): Per home readings, patient with constant elevated diastolic readings. At this point will substitute lisinopril 20 mg for lisinopril-hydrochlorothiazide 20-12.5 mg. Will follow up in 3 months. Assessment & Plan (12/24/2022 4:53 PM EST): Uncontrolled. Patient with continuous elevated blood pressure readings at home (07/11). None within target BP < 130/80 mmHg. At this point will increase lisinorpil to 20mg. Assessment & Plan (12/03/2022 4:43 PM EST): Declined increase in lisinopril, will want monitoring for the next 2 weeks and schedule close followup. Discussed with patient target BP < 130/80 mmHg. Backache 07/29/2010 Encounters Date Type Department Care Team Description 11/23/2024 Refill [facility] [address] [place] [address] Carolina Campbell MD Type 2 diabetes mellitus with hyperglycemia, with long-term current use of insulin ([facility]) 11/19/2024 Refill [facility] [address] [place] [address] Carolina Campbell MD Essential hypertension from Last 3 Months Immunizations Name Administration Dates Next Due Influenza injectable quadriv alent preservative free 10/21/2023,09/19/2022 Influenza, Split (incl. reese fied surface antigen) 09/21/2013,09/17/2012 Pfizer Covid-19 Vaccine 12+ brayan-sucrose ([place]) 05/31/2022,11/19/2021,05/06/2021,04/04 Pneumococcal Conjugate PCV 20 07/07/2023 Pneumococcal Polysaccharide PPSV23 03/11/2012 Tdap 10/21/2023,09/21/2013 Zoster, Recombinant 09/19/2022 Social History Tobacco Use Types Packs/Day Years Used Date Smoking Tobacco: Never Passive Smoke Exposure: Never Smokeless Tobacco: Never Tobacco Cessation:Counseling Given: Not Answered Alcohol Use Standard Drinks/Week Comments Never 0 [...] Don't know 09/29/2022 10 :20 AM EDT Last Filed Vital Signs Vital Sign Reading Time Taken Comments Blood Pressure 124/76 07/29/2024 1:43 PM EDT Pulse 80 07/29/2024 1:43 PM EDT Temperature 36.8 ??C (98.2 ??F) 07/29/2024 1:43 PM ED T Respiratory Rate 20 07/29/2024 1:43 PM EDT Oxygen Saturation 99% 07/29/2024 1:43 PM EDT Inhaled Oxygen Concentration - - Weight 88.5 kg (195 lb) 07/29/2024 1:43 PM EDT Height 176 cm (5' 9.29 ) 07/29/2024 1:43 PM EDT Body Mass Index 28.56 07/29/2024 1:43 PM EDT Plan of Treatment Health Maintenance Due Date Last Done Comments CT Colonography 1970 Colonoscopy 1970 Colorectal Cancer Screening 1970 FIT DNA/Cologuard 1970 FIT 1970 FOBT 1970 Sigmoidoscopy 1970 Eye Exam 1980 Alcohol/Substance Use Screening 1982 Hepatitis B Vaccines (1 of 3 - 19+ 3-dose series) 1989 Zoster Vaccines (2 of 2) 11/14/2022 09/19/2022 Depression Screening 12/24/2023 12/24/2022, 12/24/19 SDOH Screening 12/24/2023 12/24/2022 Diabetes: Urine Protein Screening 07/13/2024 07/13/2023 Lipid Panel 07/13/2024 07/13/2023, 06/19/2022 COVID-19 Vaccine ( season) 2024 05/31/2022, 11/19/2021, 05/06/2021, Additional history exists Diabetes: Hemoglobin A1C 09/27/2024 024, 02/17/2024, 10/21/2023, Additional history exists Diabetes: Foot Exam 10/21/2024 10/21/2023, 10/21/2023, 10/21/2023, Additional history exists Tobacco Screening 07/29/2025 07/29/2024 DTaP/Tdap/Td Vaccines (3 - Td or Tdap) 10/21/2033 10/21/2023, 09/21/2013 RSV Patients and Patients Aged 60 years or older (1 - 1-dose 75+ series) 2045 HIV Screening Completed 07/13/2023 Hepatitis C Screening Completed 07/13/2023 Influenza Vaccine Completed 09/09/2024, , 09/19/2022, Additional history exists Pneumococcal Vaccine: 50+ Years Completed 09/09/2024, 07/07/2023, 03/11/2012 HIB Vaccines Aged Out No longer eligi ble based on patient's age to complete this topic HPV Vaccines Aged Out No longer eligi ble based on patient's age to complete this topic Hepatitis A Vaccines Aged Out No long er eligible based on patient's age to complete this topic IPV Vaccines Aged Out No longer eligi ble based on patient's age to complete this topic Meningococcal Vaccine Aged Out No wendy christine eligible based on patient's age to complete this topic RSV under 20 months Aged Out No longe r eligible based on patient's age to complete this topic Rotavirus Vaccines Aged Out No longer eligible based on patient's age to complete this topic Procedures Procedure Name Priority Date/Time Associated Diagnosis Comments POCT GLYCATED HEMOGLOBIN, TOTAL Routine 06/27/2024 4:40 PM EDT Type 2 diabetes mellitus without complication, with long-term current use of insulin ([facility]) ALBUMIN, RANDOM URINE W/CREATININE Routine 07/13/2023 8:38 AM EDT Type 2 diabetes mellitus with hyperglycemia, with long-term current use of insulin ([facility]) HEPATITIS C ANTIBODY Routine 07/13/2023 8:34 AM EDT Encounter for health-related screening HIV ANTIBODY/ANTIGEN ([place] [facility]) Routine 07/13/2023 8:34 AM EDT Type 2 diabetes mellitus with hyperglycemia, with long-term current use of insulin ([facility]) LIPID PANEL, STANDARD Routine 07/13/2023 8:34 AM EDT Type 2 diabetes mellitus with hyperglycemia, with long-term current use of insulin ([facility]) from Last 3 Months or Most Recently Relevant to Health Maintenance Results * (ABNORMAL) POCT HGB A1C (06/27/2024 4:40 PM EDT) Hemoglobin A1C 8.3(A) 4.0 - 6.0 % QC Media Lot # [id number] Lot# Expiration Date , Blood 06/27/2024 4:40 PM EDT Carolina Campbell MD POINT OF CARE TEST ENTER/EDIT ORDERABLES Final Result * Albumin, Random Urine W/Creatinine (07/13/2023 8:38 AM EDT) Creatinine, Urine 196.58 mg/dL [facility] Microalbumin Urine 87.0 mg/L [facility] Microalbum Creatinine Ratio Ur 44.2 ug/mg cr [facility] Comment:Albumin/Creatinine R atio Reference Ranges: Normal: < 30 ug/mg creatinine Microalbuminuria: 30 - 300 ug/mg creatinineClinical Albuminuria: > 300 ug/mg creatinine 07/13/2023 8:38 AM EDT 07/13/2023 2:37 PM EDT Carolina Campbell MD LAB URINE ORDERABLES Final Re sult Performing Organization Address [facility] Co de Phone Number [facility] [address] [place] [phone] * Hepatitis C Ab (07/13/2023 8:34 AM EDT) Pathologist [facility] Hepatitis C Antibody Nonreactive Nonreactive [facility] Comment:Antibodies to HCV no t detected; does not exclude early acuteHCV infection. Blood 07/13/2023 8:34 AM EDT 07/13/2023 2:25 PM EDT Carolina Campbell MD LAB BLOOD ORDERABLES Final Re sult Performing Organization Address [facility] Co de Phone Number [facility] [address] [place] [phone] * HIV Ab/Ag (BRIGIDA BRANCH) (07/13/2023 8:34 AM EDT) HIV AB/AG Nonreactive Nonreactive [facility] Comment:HIV-1 p24 Ag and/or HIV-1/HIV-2 Ab not detected.A test result that is nonreactive does not exclude thepossibility of exposure to or infection with HIV-1 and/orHIV-2. Nonreactive results in this assay for individualswith prior exposure to HIV-1 and/or HIV-2 may be due toantigen and antibody levels that are below the limit ofdetection of this assay.The [employer] Work[employer] HIV Ag/Ab Combo assay result andsupplemental assay results should be interpreted inconjunction with the patient's clinical presentation,history and other laboratory results. If the results areinconsistent with clinical evidence, additional testing issuggested to confirm the result. 07/13/2023 8:34 AM EDT 07/13/2023 2:25 PM EDT us Carolina Campbell MD LAB BLOOD ORDERABLES Final Re sult Performing Organization Address [facility] Co de Phone Number [facility] [address] [place] [address] [phone] * Lipid Panel, Standard (07/13/2023 8:34 AM EDT) Triglycerides 50 mg/dL [facility] Comment:Desirable Triglyceri de: less than 150 mg/dLBorderline High Triglyceride 150-199 mg/dLHigh Triglyceride: 200-499 mg/dLVery High Triglyceride: greater than or equal to 5OO mg/dL Cholesterol 100 mg/dL [facility] Comment:Desirable Cholestero l: less than 200 mg/dLBorderline High Cholesterol: 200-239 mg/dLHigh Cholesterol: greater than 239 mg/dL LDL Cholesterol Calculated 57 mg/dl [facility] Comment:Desirable LDL: less than 100 mg/dLNear Optimal/Above Optimal LDL: 110- 129 mg/dLBorderline High LDL: 130-159 mg/dLHigh LDL: 160-189 mg/dLVery High LDL: greater than or equal to 190 mg/dL HDL Cholesterol 33 mg/dL [facility] Comment:Desirable HDL: great er than 40 mg/dL Note: This HDL assay may give artificially low results in patients with liver disease. Blood Venous blood specimen / Unknown 07/13/2023 8:34 AM EDT 07/13/2023 2:25 PM EDT us Carolina Campbell MD LAB BLOOD ORDERABLES Final Re sult [facility] [address] [place] [phone] from Last 3 Months or Most Recently Relevant to Health Maintenance Insurance , [address] [place] [address] Care Teams Primer Expeditor And Drier Relationship Specialty Start Date End Date Carolina Campbell MD [address] [place] [phone] PCP - General Family Medicine 06/26/22
--- OUTSIDE RECORDS SUMMARY | 2025-02-09 16:58 | XMS_ITS | Encounter Summary ---
Author Organization [employer] Address [address] [facility] [address] [place] [address] Care Team Providers Care Upper Marker Name Role Phone Carolina Campbell MD Primary Care Provider [phone] Reason for Visit * Reason Onset Date Comments Referral 07/08/2024 Encounter Details Date Type Department Care Team ([facility] st Contact Info) Description 07/08/2024 Telephone [facility] [address] [place] [address] Carolina Campbell MD [address] [place] [address] Referral Social History Tobacco Use Types Packs/Day Years [...] AM EDT documented as of this encounter Miscellaneous Notes * Telephone Encounter - Stoney Young - 07/15/2024 11:50 AM EDT Tc from patient calling in regards to message below for appt for the referral * Telephone Encounter - Stoney Young - 07/11/2024 3:20 PM EDT Tc from patient calling in regards to message below states has received a call and was advised to return call however junior underwriter does not see anything noted * Telephone Encounter - Carolina Campbell MD - 07/08/2024 1:10 PM EDT This was not discussed in previous visit, can you please assess with referral department if referral can be placed without documentation, if not make an appointment. Thanks! * Telephone Encounter - Amirah Dominguez RN - 07/08/2024 12:47 PM EDT Call returned to Osmin Philippe to triage below. Reports having had a penile implant done almost 11years ago in [place]. Per pt would like referral to see a urologist to assist with repair and or removaland re-implantation. Pt denies any urinary sx , penile pain. States implant stopped functioning andwants this addressed. Called Urology offices and was advised that a Referral would be needed. Pt advised will forward request to provider to review and further advise team as needed. Protocol Used: Information Only Call - No Triage (Adult) Protocol-Based Disposition: Discuss with PCP and Callback by Nurse Today Video visit offer not recorded Positive Triage Question: * Requesting referral to a specialist * All higher-acuity triage questions were negative Care Advice Discussed: * Reasons To Call Back - New symptoms develop - You become worse * Telephone Encounter - Susan Peterson - 07/08/2024 12:42 PM EDT Tc from pt requesting a call back, pt is requesting a urology referral, no further details provided. Finnish speaker documented in this encounter Plan of Treatment Not on file documented as of this encounter Visit Diagnoses Not on filedocumented in this encounter Additional Health Concerns Assessment Noted Time PHQ-9 Depression Total Score: 0 12/24/19 23 4:13 PM EST documented as of this encounter Care Teams Upper Marker Relationship Specialty Start Date End Date Carolina Campbell MD [address] [place] [phone] PCP - General Family Medicine 06/26/22 documented as of this encounter
--- OUTSIDE RECORDS SUMMARY | 2025-02-09 16:58 | XMS_ITS | Encounter Summary ---
Author Organization [facility] Address [address] [place] [address] Care Team Providers Care Kennel Aide Name Role Phone Rosangela Rodriguez MD Primary Care Provider [phone] Encounter Details Date Type Department Care Team ([facility] Contact Info) Description 09/19/2024 10:00 AM EDT Hospital Encounter [facility] [address] [address] Rosangela Rodriguez MD [address] [address] Social History Tobacco Use Types Packs/Day [...] Upcoming Encounters Date Type Department Care Team ([facility] st Contact Info) Description 02/13/2025 8:30 AM EDT Telemedicine [facility] [address] [facility] [address] [place] [address] Rosangela Rodriguez MD [address] [facility] [address] [place] [address] documented as of this encounter Visit Diagnoses Not on filedocumented in this encounter Care Teams Kennel Aide Relationship Specialty Start Date End Date Rosangela Rodriguez MD PCP - General 09/13/24 12/05/24 documented as of this encounter
--- OUTSIDE RECORDS SUMMARY | 2025-02-09 16:58 | XMS_ITS | Clinical Summary ---
Author Organization [facility] Address [address] [place] [address] Care Team Providers Care Chef Head Name Role Phone Rosangela Rodriguez MD Primary Care Provider + [phone] Allergies No known active allergies Medications pen needle, diabetic (BD Ultra-Fine Wendy Pen Needle) 32 gauge x 5/32 needle 4 (four) times a day. 300 each 3 11/08/20 24 025 Active freestyle (FreeStyle Lancets) 28 gauge lancets 1 each by Other route 2 times daily. 02/17/20 24 Active atorvastatin (LIPITOR) 40 mg tablet Take 1 tablet (40 mg total) by mouth 1 (one) time each day in the morning. 11/21/20 24 Active lisinopril-hyd roCHLOROthiazi de (PRINZIDE,ZEST ORETIC) 20-12.5 mg per tablet Take 1 tablet by mouth 1 (one) time each day in the morning. 11/21/20 24 Active metFORMIN (GLUCOPHAGE) 1,000 mg tablet Take 1 tablet (1,000 mg total) by mouth. Active insulin glargine (LANTUS) 100 unit/mL injection Inject 54 Units under the skin 1 (one) time each day in the morning. 10 mL 2 01/14/20 25 025 Active tirzepatide (MOUNJARO) 2.5 mg/0.5 mL injectionIndic ations:Type 2 diabetes mellitus with hyperglycemia, with long-term current use of insulin ([facility]) Inject 0.5 mL (2.5 mg total) under the skin every 7 (seven) days. 2 mL 01/25/20 25 025 Active blood-glucose sensor (FreeStyle Kenneth 3 Plus Sensor) deviceIndicati ons:Type 2 diabetes mellitus with hyperglycemia, with long-term current use of insulin ([facility]) 1 EA every 14 (fourteen) days. Box = Kit = EA 6 each 3 01/25/20 25 026 Active ammonium lactate (AmLactin) 12 % lotion Apply topically if needed for dry skin. 400 g 01/25/20 25 026 Active hydroCHLOROthi azide 12.5 mg tablet Take 1 tablet (12.5 mg total) by mouth 1 (one) time each day. 90 each 01/25/20 25 025 Active dulaglutide (TRULICITY SUBQ) Inject 0.5 mL under the skin 1 (one) time per week. 09/12/20 24 025 Discontinued glyBURIDE (DIABETA) 2.5 mg tablet Take 1 tablet (2.5 mg total) by mouth. 025 Discontinued insulin glargine (LANTUS) 100 unit/mL injection Inject 54 Units under the skin. 09/29/20 24 025 Discontinued(Re order) omeprazole (PriLOSEC) [address] capsule Take 1 capsule (20 mg total) by mouth 1 (one) time each day. Do not crush or chew. 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 Lateral epicondylitis of right elbow 07/07/2023 Acute appendicitis 03/03/2023 Overview (12/08/2024): Added automatically from request for surgery [id number] Diabetes mellitus 11/13/2011 Obesity 11/13/2011 Pure hypercholesterolemia 11/13/2011 Essential hypertension 11/15/2010 Backache 07/29/2010 Encounters Date Type Department Care Team Description 01/25/2025 9:00 AM EST Office Visit [facility] [address] [facility] [address] [place] [address] Rosangela Rodriguez MD Type 2 diabetes mellitus with hyperglycemia, with long-term current use of insulin ([facility]) (Primary Dx); Primary hypertension; Hypercholesteremia; Hypertriglyceridemia; B12 deficiency; Dry skin; Lower extremity edema 12/08/2024 9:30 AM EST Telemedicine [facility] [address] [address] Rosangela Rodriguez MD Helicobacter pylori gastritis (Primary Dx); Type 2 diabetes mellitus with hyperglycemia, with long-term current use of insulin ([facility]) 12/06/2024 Telephone [facility] [address] [address] Sana Snowden MA from Last 3 Months Immunizations Name Administration Dates Next Due Influenza Quadrivalent, 0.5m l, preservative free (Fluarix; FluLaval; Fluzone) ages 6mo and older (Afluria) 3yo and older 09/09/2024,10/21/2023,09/19/2022 Influenza Split 09/21/2013,09/17/2012 Pfizer (ages 12 & older) ALIZA S-CoV-2 COVID-19, mRNA, LNP-S, brayan-sucrose, preservative free 05/31/2022,11/19/2021,05/06/2021,04/04 Pneumococcal conjugate 20 va lent (Prevnar 20, PCV 20) 2mo and older 07/07/2023 Pneumococcal polysaccharide 23 valent (Pneumovax 23) 2yo and older 09/09/2024,03/11/2012 Tdap Tetanus diptheria acell ular pertussis (Boostrix; Adacel) 7yo and older 10/21/2023,09/21/2013 Zoster recombinant (Shingrix ) 19yo and older 09/19/2022 Surgical History Surgery Date Site/Laterality Comments KNEE SURGERY PROCEDURE:KNEE SURGERY;COMMENT:left ELBOW SURGERY PROCEDURE:ELBOW SURGERY;COMMENT:left HAND SURGERY PROCEDURE:HAND SURGERY;COMMENT:left PENILE PROSTHESIS IMPLANT 08/24/2014 N/A PROCEDURE:PENILE PROSTHESIS IMPLANT;COMMENT:Procedure: INSERT INFLATABLE PROSTHESIS PENILE; Surgeon: Arlene Hawley MD; Location: [facility]; Service: Urology; Laterality: N/A; Medical History Medical History Date Comments Diabetes mellitus type II, c ontrolled ([facility]/HCC) DX:Diabetes mellitus type II , controlled ([facility]) Social History Tobacco Use Types [...] on file Sexual Orientation Not on file Obstetrics History Last Filed Vital Signs Vital Sign Reading [...] Mass Index 30.19 01/25/2025 9:36 AM EST Plan of Treatment Upcoming Encounters Date Type Department Care Team (Late st Contact Info) Description 02/13/2025 8:30 AM EDT Telemedicine [facility] [address] [facility] [address] [place] [address] Rosangela Rodriguez MD [address] [facility] [address] [place] [address] Health Maintenance Due Date Last Done Comments Diabetes: Annual Foot Exam 1980 Diabetes: Annual Retina Eye Exam 1980 Hepatitis B Vaccines (1 of 3 - 19+ 3-dose series) 1989 Zoster Vaccines (2 of 2) 11/14/2022 09/19/2022 Colorectal Cancer Screening: Colonoscopy 12/29/2023 Depression Screening 12/29/2023 12/24/2022 Social Influencers of Health Screening 12/29/2023 COVID-19 Vaccine ( season) 2024 05/31/2022, 11/19/2021, 05/06/2021, Additional history exists Diabetes: Blood Sugar Control Test (HGBA1C) 07/16/2025 01/16/2025, 09/13/2024, 09/13/2024, Additional history exists Diabetes: Annual Urine Albumin-Creatinine Ratio (uACR) 09/13/2025 09/13/2024 Diabetes: Annual GFR (Glomerular Filtration Rate) 01/16/2026 01/16/2025, 09/13/2024, 03/04/2023 Hypertension/CHF/CAD Annual BMP Blood Test 01/16/2026 01/16/2025, 09/13/2024, 03/04/2023 Cholesterol Screening (Lipid Panel) 01/16/2030 01/16/2025, 09/13/2024, 09/13/2024, Additional history exists DTaP,Tdap,and Td Vaccines (3 - Td or Tdap) 10/21/2033 10/21/2023, 09/21/2013 HIV Screening Completed 07/13/2023 Influenza Vaccine Completed 09/09/2024, , 09/19/2022, Additional history exists Pneumococcal Vaccine: 50+ Years Completed 09/09/2024, 07/07/2023, 03/11/2012 Pneumococcal Vaccine: Pediatrics (0 to 5 Years) and At-Risk Patients (6 to 64 Years) Completed 09/09/2024, 07/07/2023, 03/11/2012 Hepatitis C Screening Completed 09/13/2024, 024 HIB Vaccines Aged Out No longer eligi [...] on patient's age to complete this topic MMR Vaccines Aged Out No longer eligi ble based on patient's age to complete this topic Meningococcal ACWY Vaccine Aged Out N o longer eligible based on patient's age to complete this topic Meningococcal B Vacine Aged Out No lo nger eligible based on patient's age to complete this topic RSV Immunization Patients Under 20 months Aged Out No longer eligible based on patient's age to complete this topic Varicella Vaccines Aged Out No longer eligible based on patient's age to complete this topic Procedures Procedure Name Priority Date/Time Associated Diagnosis Comments HELICOBACTER PYLORI BREATH TEST Routine 02/06/2025 9:00 AM EDT Helicobacter pylori gastritis HEMOGLOBIN A1C Routine 01/16/2025 8:16 AM EST Type 2 diabetes mellitus with hyperglycemia, with long-term current use of insulin (CMS/HCC) LIPID PANEL Routine 01/16/2025 8:16 AM EST Type 2 diabetes mellitus with hyperglycemia, with long-term current use of insulin (CMS/HCC) VITAMIN B12 AND FOLATE Routine 8:16 AM EST Type 2 diabetes mellitus with hyperglycemia, with long-term current use of insulin (CMS/HCC) COMPREHENSIVE METABOLIC PANEL Routine 01/16/2025 8:16 AM EST Type 2 diabetes mellitus with hyperglycemia, with long-term current use of insulin (CMS/HCC) HM HEPATITIS C SCREENING Routine 09/13/2024 URINE ALBUMIN CREATININE RATIO Routine 09/13/2024 HIV SCREENING Routine 07/13/2023 from Last 3 Months or Most Recently Relevant to Health Maintenance Results * (ABNORMAL) Helicobacter pylori breath test (02/06/2025 9:00 AM EDT) Helicobacter pylori Breath Test DETECTED( A) NOT DETECTED [facility]-Tachyus Comment: Antimicrobials, proton pump inhibitors, and bismuth preparations are known to suppress H. pylori, and ingestion of these prior to H. pylori diagnostic testing may lead to false negative results. If clinically indicated, the test may be repeated on a new specimen obtained two weeks after discontinuing treatment. However, a positive result is still clinically valid. Breath Oral cavity structure / Unknown 02/06/2025 9:00 AM EDT 02/06/2025 9:04 AM EDT Narrative IFTIKHAR CASAS ([facility]) - 02/07/2025 3:10 PM EDT SPLIT 01/16/2025 FROM [id number] us Rosangela Rodriguez MD LAB BODY FLUIDS AND STOOLS O RDERABLES Final Result Performing Organization Address [facility] de Phone Number IFTIKHAR CASAS ([facility]) [facility] [address] [place] [address] * Vitamin B12 and folate (01/16/2025 8:16 AM EST) Pathologist [facility] Vitamin B12 719 200 - 1,100 pg/mL [facility] Folate Serum 22.8 ng/mL [facility] Comment: ? Reference Range ? Low: ? <3.4 ? Borderline: ?3.4-5.4 ? Normal: ?>5.4 Blood Venous blood specimen / Unknown 01/16/2025 8:16 AM EST 01/16/2025 8:16 AM EST Narrative IFTIKHAR CASAS ([facility]) - 01/16/2025 11:07 PM EST FASTING:YES PATIENT REFUSED SOME TESTING; PATIENT ENCOURAGED TO RETURN. FASTING: YES Rosangela Rodriguez MD LAB BLOOD ORDERABLES Final R esult Performing Organization Address [facility] de Phone Number IFTIKHAR CASAS ([facility]) [facility] [address] [place] [address] * (ABNORMAL) Hemoglobin A1c (01/16/2025 8:16 AM EST) Pathologist [facility] Hemoglobin A1C 8.7(H) <5.7 % of total Hgb [facility] Comment: For someone without known diabetes, a hemoglobin A1c value of 6.5% or greater indicates that they may have diabetes and this should be confirmed with a follow-up test. For someone with known diabetes, a value <7% indicates that their diabetes is well controlled and a value greater than or equal to 7% indicates suboptimal control. A1c targets should be individualized based on duration of diabetes, age, comorbid conditions, and other considerations. Currently, no consensus exists regarding use of hemoglobin A1c for diagnosis of diabetes for children. ?? Blood Venous blood specimen / Unknown 01/16/2025 8:16 AM EST 01/16/2025 8:16 AM EST Narrative [facility] ([facility]) - 01/16/2025 11:07 PM EST FASTING:YES PATIENT REFUSED SOME TESTING; PATIENT ENCOURAGED TO RETURN. FASTING: YES Rosangela Rodriguez MD LAB BLOOD ORDERABLES Final R esult [facility] ([facility]) [facility] [employer] [address] [place] [phone] * (ABNORMAL) Lipid panel (01/16/2025 8:16 AM EST) [facility] Cholesterol Total 183 <200 mg/dL [facility] HDL Cholesterol 39(L) > OR = 40 mg/dL [facility] Triglycerides 121 <150 mg/dL [facility] LDL Cholesterol 121(H) mg/dL (calc) [facility] Comment: Reference range: <100 Desirable range <100 mg/dL for primary prevention; ?? <70 mg/dL for patients with CHD or diabetic patients with > or = 2 CHD risk factors. LDL-C is now calculated using the Seth-Silver calculation, which is a validated novel method providing better accuracy than the Friedewald equation in the estimation of LDL-C. Seth NIEVES et al. DYLAN. 2013;310(19): 9104-8916 (http://education.[employer].EKK Sweet Teas/faq/CKL915) Chol/HDLC Ratio 4.7 <5.0 (calc) [facility] Non HDL Cholesterol 144(H) <130 mg/dL (calc) [facility] Comment: For patients with diabetes plus 1 major ASCVD risk factor, treating to a non-HDL-C goal of <100 mg/dL (LDL-C of <70 mg/dL) is considered a therapeutic option. Blood Venous blood specimen / Unknown 01/16/2025 8:16 AM EST 01/16/2025 8:16 AM EST Narrative [facility] ([facility]) - 01/16/2025 11:07 PM EST FASTING:YES PATIENT REFUSED SOME TESTING; PATIENT ENCOURAGED TO RETURN. FASTING: YES us Rosangela Rodriguez MD LAB BLOOD ORDERABLES Final R esult [facility] ([facility]) [facility] [address] [place] [phone] * (ABNORMAL) Comprehensive metabolic panel (01/16/2025 8:16 AM EST) Glucose 157(H) 65 - 99 mg/dL [facility] Comment: ? Fasting reference interval For someone without known diabetes, a glucose value >125 mg/dL indicates that they may have diabetes and this should be confirmed with a follow-up test. Urea Nitrogen (BUN) 25 7 - 25 mg/dL [facility] Creatinine 0.88 0.70 - 1.30 mg/dL [facility] eGFR 102 > OR = 60 mL/min/1 .73m2 [facility] BUN/Creatinine Ratio SEE NOTE: 6 - 22 (calc) [facility] Comment: ?? Not Reported: BUN and Creatinine are within ?? reference range. ? Sodium 135 135 - 146 mmol/L [facility] Potassium 5.1 3.5 - 5.3 mmol/L [facility] Chloride 99 98 - 110 mmol/L [facility] Carbon Dioxide 28 20 - 32 mmol/L [facility] Calcium 10.3 8.6 - 10.3 mg/dL [facility] Total Protein 7.3 6.1 - 8.1 g/dL [facility] Albumin 5.0 3.6 - 5.1 g/dL [facility] Globulin 2.3 1.9 - 3.7 g/dL (calc) [facility] Albumin/Globulin Ratio 2.2 1.0 - 2.5 (calc) [facility] Bilirubin Total 0.4 0.2 - 1.2 mg/dL [facility] Alkaline Phosphatase 124 35 - 144 U/L [facility] Aspartate aminotransferase??(A ST) 22 10 - 35 U/L [facility] Alanine Aminotransferase (ALT) 26 9 - 46 U/L [facility] Blood Venous blood specimen / Unknown 01/16/2025 8:16 AM EST 01/16/2025 8:16 AM EST [facility] ([facility]) - 01/16/2025 11:07 PM EST FASTING:YES PATIENT REFUSED SOME TESTING; PATIENT ENCOURAGED TO RETURN. FASTING: YES Result [facility] Rosangela Rodriguez MD LAB BLOOD ORDERABLES Final R esult [facility] ([facility]) [employer] [address] [address] * Urine Albumin Creatinine Ratio (09/13/2024) Pathologist [facility] Urine Albumin Creatinine Ratio Abstracted Historical Provider HEALTH MAINTENANCE Final Result * Hepatitis C Screening (09/13/2024) Pathologist [facility] Hepatitis C Screening Abstracted Result [facility] Historical Provider HEALTH MAINTENANCE Final Result * HIV Screening (07/13/2023) Pathologist [facility] HIV Screening Abstracted Historical Provider HEALTH MAINTENANCE Final Result from Last 3 Months or Most Recently Relevant to Health Maintenance Insurance [facility] Care Teams Chef Head Relationship Specialty Start Date End Date Rosangela Rodriguez MD [facility] [address] [phone] PCP - General Internal Medicine 12/06/24
--- OUTSIDE RECORDS SUMMARY | 2025-02-09 16:58 | XMS_ITS | Encounter Summary ---
Author Organization [facility] Address [address] [place] [address] Care Team Providers Care Coroner/Medical Examiner Name Role Phone Rosangela Rodriguez MD Primary Care Provider + [phone] Encounter Details Date Type Department Care Team ([facility] Contact Info) Description 09/12/2024 1:38 PM EDT Hospital Encounter [facility] [address] [address] Rosangela Rodriguez MD [address] [address] Social History Tobacco Use Types [...] Description 02/13/2025 8:30 AM EDT Telemedicine [facility] [address] [facility] [address] [place] [address] Rosangela Rodriguez MD [address] [facility] [address] [place] [address] documented as of this encounter Visit Diagnoses Not on filedocumented in this encounter Care Teams Coroner/Medical Examiner Relationship Specialty Start Date End Date Rosangela Rodriguez MD PCP - General 09/12/24 09/12/24 documented as of this encounter
--- OUTSIDE RECORDS SUMMARY | 2025-02-09 16:58 | XMS_ITS | Clinical Summary ---
Author Organization [facility] Address [address] [place] [address] Care Team Providers Care Parcel Wrapper Name Role Phone Rosangela Rodriguez MD Primary Care Provider Unava ilable Allergies No known active allergies Medications Medication Sig Dispensed Refills Start Date End Date Status metFORMIN (GLUCOPHAGE) 1000 MG tablet Take 1,000 mg by mouth 2 (two) times a day with meals. 0 Active glyBURIDE (DIABETA) 2.5 MG tablet Take 2.5 mg by mouth every morning with breakfast. 0 Active simvastatin (ZOCOR) 20 MG tablet Take 20 mg by mouth daily. 0 Active oxyCODONE-acetaminophe n (PERCOCET) 5-325 MG per tablet 1-2 tablets orally every 4 hours as needed for pain 30 tablet 0 08/25/2014 Active dulaglutide (Trulicity) 1.5 MG/0.5ML subcutaneous pen-injector Inject 0.5 mL (1.5 mg total) under the skin once a week. 6 mL 2 09/12/2024 Active Active Problems No known active problems Immunizations Name Administration Dates Next Due Influenza Quad (Fluarix/Fluz one/FluLaval) 0.5mL (SD-IIV4) 09/09/2024 Pneumococcal Polysaccharide PPSV23 09/09/2024 Social History Tobacco Use Types Packs/Day Years Used Date Smoking Tobacco: Never Tobacco Cessation:Counseling Given: Not Answered Alcohol Use Standard Drinks/Week Comments No 0 (1 standard drink = 0.6 oz pur e alcohol) Sex and Gender Information Value Date Recorded Sex Assigned at Male 09/12/2024 1:38 PM EDT Gender Identity Male 09/12/2024 1:38 PM EDT Sexual Orientation Not on file Job Start Date Occupation Industry Not on file Not on file Not on file Last Filed Vital Signs Vital Sign Reading Time Taken Comments Blood Pressure 140/80 09/19/2024 10:56 AM EDT Pulse 85 09/19/2024 10:56 AM EDT Temperature 36.2 ??C (97.1 ??F) 09/19/2024 10:56 AM E DT Respiratory Rate 16 09/19/2024 10:56 AM EDT Oxygen Saturation 95% 09/19/2024 10:56 AM EDT Inhaled Oxygen Concentration - - Weight 89 kg (196 lb 1.6 oz) 09/19/2024 10:56 AM EDT Height 174 cm (5' 8.5 ) 09/19/2024 10:56 AM EDT Body Mass Index 29.38 09/19/2024 10:56 AM EDT Plan of Treatment Health Maintenance Due Date Last Done Comments Hepatitis B Vaccines (1 of 3 - 3-dose series) 1970 Depression Screening 1982 BMI Counseling 1988 Diabetes: Eye Exam (No Retinopathy) 1988 Diabetes: Foot Exam 1988 Colon Cancer Screening (Colonoscopy) 2015 Shingrix-Zoster Vaccine (2 of 2) 11/14/2022 09/19/2022 COVID-19 Vaccine ( season) 2024 05/31/2022, 11/19/2021, 05/06/2021, Additional history exists Hemoglobin A1C Due 03/14/2025 09/13/2024 Preventative Health Evaluation 09/12/2025 09/12/2024 Diabetes: Microalbumin Test 09/13/2025 09/13/2024 DTap / Tdap / Td (3 - Td or Tdap) 10/21/2033 10/21/2023, 09/21/2013 Influenza Vaccine Completed 09/09/2024, , 09/19/2022 Pneumococcal Vaccine Completed 09/09/2024, 07/07/2023, 03/11/2012 Hepatitis C Screening Completed 09/13/2024 RSV Ped < 20 months Aged Out No longe r eligible based on patient's age to complete this topic Medical Devices Implanted Type Area Boil Off Worker Device Identifier Shelf Expiration Date Model / Serial / Lot Prosthesis Ams 700 Accessory Kit Penile - [id number] - [id number] Implanted:Qty: 1 on 08/24/2014 by Arlene Hawley MD at [facility] [place] and Med N/A: Penis [employer] 08/01/2019 [id number] / / [id number] Prosthesis Ams 700ms 18cm 12mm Erectile Methodist Tactile - [id number] - [id number] Implanted:Qty: 1 on 08/24/2014 by Arlene Hawley MD at [facility] [place] [place] and Med N/A: Penis [employer] 05/03/2016 [id number] / / [id number] Prosthesis Ams 700ms 65ml Lago Penile - [id number] - [id number] Implanted:Qty: 1 on 08/24/2014 by Arlene Hawley MD at [facility] [place] [place] and Med N/A: Penis [employer] 06/15/2016 [id number] / / [id number] 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 Care Teams Parcel Wrapper Relationship Specialty Start Date End Date Rosangela Rodriguez MD PCP - General Internal Medicine 09/12/24
--- OUTSIDE RECORDS SUMMARY | 2025-02-09 16:58 | XMS_ITS | Encounter Summary ---
Author Organization [employer] Address [address] [facility] [address] [place] [address] Care Team Providers Care Rough Patcher Name Role Phone Carolina Campbell MD Primary Care Provider [phone] Encounter Details Date Type Department Care Team ([facility] st Contact Info) Description 04/29/2023 [facility] [address] [place] [address] Carolina Campbell MD [address] [place] [address] Social History Tobacco Use Types Packs/Day Years Used Date Smoking Tobacco: Never Passive Smoke Exposure: Never Smokeless Tobacco: Never Alcohol Use Standard Drinks/Week Comments Never 0 (1 standard drink = 0.6 oz pur e alcohol) Depression Answer Date Recorded Patient Health Questionnaire-9 Score 0 12/24/2022 Depression Answer Date Recorded Patient Health Questionnaire-2 [...] documented as of this encounter Care Teams Rough Patcher Relationship Specialty Start Date End Date Carolina Campbell MD [address] [place] [address] PCP - General Family Medicine 06/26/22 documented as of this encounter
--- OUTSIDE RECORDS SUMMARY | 2025-02-09 16:58 | XMS_ITS | Encounter Summary ---
Author Organization [facility] Address [address] [facility] [address] [place] [address] Care Team Providers Care Marine Cargo Specialist Name Role Phone Carolina Campbell MD Primary Care Provider [phone] Reason for Visit * Reason Comments Med Refill Encounter Details Date Type Department Care Team ([facility] Contact Info) Description 02/17/2024 Refill [facility] [address] [place], [place] [phone] Carolina Campbell MD [address] [place] [address] Type 2 diabetes mellitus with hyperglycemia, with long-term current use of insulin ([facility]) Social History Tobacco Use Types [...] hyperglycemia, with long-term current use of insulin ([facility]) documented in this encounter Additional Health Concerns Assessment Noted Time PHQ-9 Depression Total Score: 0 12/24/19 23 4:13 PM EST documented as of this encounter Care Teams Marine Cargo Specialist Relationship Specialty Start Date End Date Carolina Campbell MD [address] [place] [address] PCP - General Family Medicine 06/26/22 documented as of this encounter
[2025-03-23 12:49] VITALS: BMI 29.1
--- NOTE | 2025-03-24 12:03 | P.CONAN_ITS ---
Documented by User: Chela Shah NP 03/24/25 12:03 HPI - Anesthesia Eval Consult details Narrative: 54yo M for Penile Prosthesis Revision Anesthesia Pre-Procedure Meds Is the patient on any of the following meds?: GLP1/DPP4 PMFSH Active Problems Active Problems: All Active Problems Elevated PSA (Acute) Malfunction of penile prosthesis (Acute) Past Medical History Medical History Diabetes mellitus HTN (hypertension) HLD (hyperlipidemia) Surgical History Surgical History History of penile implant Social History Social History Alcohol intake: former Patient Tobacco Use Status: Never used Tobacco Use of substances other than those prescribed or required for medical reasons: No Have you been hit, kicked, punched, or otherwise hurt by someone within the past year? If so, by whom?: No Spiritual Healthcare Practices: no [facility] Practices: no Cultural Healthcare Practices: no Are you DNR?: No Advance Directives: No Advance Directives Information Provided: Yes (as above noted) Advance Directives on File: No Poor oral hygiene: No (2 loose teeth) Meds Allergies Allergy/AdvReac Type Severity Reaction Status Date / Time No Known Allergies Allergy Verified 03/10/25 11:13 Home Medications ?Medication ?Instructions ?Recorded ?Confirmed ?Last Taken ?Type atorvastatin 40 mg tablet 40 mg PO DAILY 09/27/24 03/27/25 03/26/25 History blood sugar diagnostic (Accu-Chek #10 ea 09/27/24 03/27/25 Unknown History Guide test strips) insulin glargine 100 unit/mL (3 50 unit subcut BEDTIME 09/27/24 03/27/25 03/26/25 History mL) subcutaneous pen (Lantus Solostar U-100 Insulin) lisinopril 20 1 tab PO DAILY 09/27/24 03/27/25 03/26/25 History mg-hydrochlorothiazide 12.5 mg tablet metformin 500 mg tablet 1,000 mg PO BID 09/27/24 03/27/25 03/26/25 History tirzepatide 2.5 mg/0.5 mL 2.5 mg subcut QWEEK 03/09/25 03/27/25 03/18/25 History subcutaneous pen injector (Yamilex) Exam Height,Weight and Vital Signs: Height 5 ft 9 in Weight 89.358 kg Assessment and Plan Assessment Anesthesia Assessment: Chart Reviewed Documented by User: Travon Pickett MD 03/27/25 07:30 PMFSH Past Medical History Medical History Diabetes mellitus HTN (hypertension) HLD (hyperlipidemia) Family History Family history of problems with anesthesia: No Surgical History Surgical History History of penile implant History of Problems with Anesthesia: No Social History Social History Alcohol intake: former Patient Tobacco Use Status: Never used Tobacco Use of substances other than those prescribed or required for medical reasons: No Have you been hit, kicked, punched, or otherwise hurt by someone within the past year? If so, by whom?: No Spiritual Healthcare Practices: no [facility] Practices: no Cultural Healthcare Practices: no Are you DNR?: No Advance Directives: No Advance Directives Information Provided: Yes (as above noted) Advance Directives on File: No Poor oral hygiene: No (2 loose teeth) Meds Allergies Allergy/AdvReac Type Severity Reaction Status Date / Time No Known Allergies Allergy Verified 03/10/25 11:13 Home Medications ?Medication ?Instructions ?Recorded ?Confirmed ?Last Taken ?Type atorvastatin 40 mg tablet 40 mg PO DAILY 09/27/24 03/27/25 03/26/25 History blood sugar diagnostic (Accu-Chek #10 ea 09/27/24 03/27/25 Unknown History Guide test strips) insulin glargine 100 unit/mL (3 50 unit subcut BEDTIME 09/27/24 03/27/25 03/26/25 History mL) subcutaneous pen (Lantus Solostar U-100 Insulin) lisinopril 20 1 tab PO DAILY 09/27/24 03/27/25 03/26/25 History mg-hydrochlorothiazide 12.5 mg tablet metformin 500 mg tablet 1,000 mg PO BID 09/27/24 03/27/25 03/26/25 History tirzepatide 2.5 mg/0.5 mL 2.5 mg subcut QWEEK 03/09/25 03/27/25 03/18/25 History subcutaneous pen injector (Mounjaro) Exam Airway Mallampati Class: II TM Dist: <=3cm Neck ROM: Full Loose/Missing/Broken Teeth: Yes Heart: ok Lungs: ok Assessment and Plan Assessment Anesthesia Assessment: Anesthesia Plan Discussed Final Anesthetic Review Family History of Problems with Anesthesia: No History of Problems with Anesthesia: No NPO: Yes ASA Class: II Final Preanesthetic Review: No Changes in Pt Med Stat, Meds/Allgs Chart Reviewed, Consent Obtained/Reviewed and Anes Risks/Benef Reviewed Patient Risk: Intermediate Procedure Risk: Low Anesthetic Plan Anesthetic Plan: GA and Agree w/ Assess. and Plan Disposition: Standard PACU
[2025-03-27] VITALS (8 sets, daily range): BP systolic 114–155; BP diastolic 79–92; PULSE 67–78; RESP 15–16; TEMP 36.1–36.4; O2SAT 94–99; BMI 28.5
[2025-03-27] MEDS: Lactated Ringers 1,000 ML 100 ML IVCONT (06:32)
[2025-03-27 06:37] LABS: Glucose, Whole Blood 153 mg/dL (60-115)
--- NOTE | 2025-03-27 07:35 | W.PM.OPN ---
Operative Note Operative Note Date of Service: 03/27/25 Narrative: PreOperative Diagnosis: Penile prosthetic malfunction Post Operative Diagnosis: Penile prosthetic malfunction Procedure: Removal of indwelling penile prosthetic with replacement Surgeon: Dr Hollis Harris Anesthesia: General Indications for procedure: Prior penile prosthetic placement proximally 15 years ago Recently noted malfunction On office inflation noted air bubbling through prosthetic Is here for prosthetic exchange Is aware of the risks and benefits particularly related to mechanical failure, infection, loss of sensation. Procedure: After informed consent was verified the patient was brought to the operating room and placed in a supine position. Anesthesia was administered per protocol. The patient was shaved with clippers, and prepped with cholhexidine based solution. He was draped in a sterile fashion. Safety pause time-out performed. Since he is a diabetic he was given triple coverage with IV vancomycin, Pip-Tazo and fluconazole per modified guideline. 16 Grenadian Ojeda catheter was placed on the field. Bladder was drained. Local anesthetic infiltrated vertically 1.5cm proximal from the penoscrotal junction. Dorsal nerve block was placed inferior to the symphsis pubis in the midline and perineal/crural block was placed 1 fingerbreadth lateral to the midline angled at 45 degrees. A vertical scrotal incision was made at the penoscrotal junction and taken down to the tunica. Dissection was performed 1st on the left side and then on the right side to fully expose the tubing of the existing penile prosthetic. Midline dissection was required to lift off the median attachments. Framingham retractor with penile support was placed. At this point stay hooks were placed in a star shaped pattern. The penis was placed in a cephalad position. The tubing was found to extend quite posteriorly in a decision was made to enter the corporal bodies in a more proximal position. On the left side corporal body was entered using Bovie cautery. We cut through the tissue until we were on the indwelling penile prosthetic. The prosthetic was then hooked using a right angle and brought out of our new corporotomy. The proximal tubing was clamped and divided to allow removal of the prosthetic cylinder. Of note there appeared to be a small defect in the proximal portion of the prosthetic at the junction between the sleeve and the posterior elbow. A double row of 3-0 Vicryl stay sutures were placed through the proximal corporal tunica with 1cm spacing and labeled and marked bilaterally. Colored vicryl was placed medial and plain vicryl lateral. Blue towels were used to isolate left from right. The same procedure was performed first on the left and then on the right side. A similar procedure was repeated on the patient's right side to remove the indwelling prosthetic After removal of prosthetic from each corporal body were washed with antibiotic normal saline. The prosthetic pump mechanism was then dissected and released. This was then divided leaving the reservoir in place. The reservoir was irrigated and using a syringe 40 cc was washed back was then for. No bubbles were shown to be within the reservoir. No discoloration was noted. At this point the shu measuring device was introduced. On the left side the proximal dilation measured at 13 cm and the distal dilation measured approximately 9 cm on the left. On the right side 13 cm and 10 cm respectively. Based on the considerations from dilatation and an assessment of the penile base girth a decision was made regarding penile prosthetic choice. 21 cm [employer] CX Preparation of the corporal cylinders and integrated pump were complete. An introducer Glenn needle was used to thread the distal tip thread from left side corporal prosthetic. The threaded needle was loaded into the shu device and placed through the corporal defect to the mid glans position. The needle was advanced out through the glans of the penis. The prosthetic was then placed into the corporal defect. The proximal portion, with attached rear tip stroke belt sander operator, was advanced and placed using the enclosed pusher device. Once the proximal portion was properly seated the distal component was introduced and brought out to the distal portion of the corpora by retracting the glans suture. A similar procedure was repeated on the right side. Tubing covering was stripped. The penis was elevated by grasping the distal glans sutures. The prosthetic was then inflated with approximately 80 cc of normal saline. No defects were seen. The prosthetic remained midline and the distal tips could be palpated in the mid penile gland indicating correct placement. The penile prosthetic was deflated. The parallel stay sutures were then secured in a horizontal fashion. The proximal pair of sutures were tied first. The proximal suture ends were tied in an air knot. The distal suture ends were lifted tightening the proximal knot onto tissue and closing the corporotomy. This was repeated with the second pair of distal sutures. The left side was completed first followed by the right. The pump was placed into the scrotal pocket and held using a clamp. This was then sutured into place using 3-0 Vicryl suture. The excess tubing from the pump and reservoir was isolated using rubber shod clamps. Excess tubing was cut with scissors leaving a 1 inch length. The tubing ends were spiritzed with saline. Compression fittings were placed and locked using the compression clamp. The penile prosthetic was then refilled to ensure proper function and adequate flow between the reservoir and the prosthetic. A 3-0 Vicryl was then used to secure tissue so the pump was kept in the dependent position using a purse string suture. Tissue was reapproximated with 3-0 Vicryl in a vertical fashion. At least 2 layers were created Skin was closed using a running 4.0 monocryl suture. The wounds were cleaned and dried. Dermal glue was used to cover the incision. This was covered by a Telfa and Tegaderm. Once the incision was dry a modified mummy / broccoli stalk dressing was applied. This consisted of a layer of christina followed by Coban. Two-three pumps had been placed into the prosthetic so as to keep the prosthetic partially filled. A cap was left on the Ojeda catheter to allow drainage for the next 48 hours. He tolerated the procedure well was extubated in operating room transferred in stable condition to the recovery area. Drains: Sixteen Grenadian Ojeda catheter Pathology: None Explant of to corporal cylinders with penile pump
--- NOTE | 2025-03-27 07:39 | MHC.SHP ---
Pre-Procedural Eval Section A - 24 Hr Update-Section A only Date of Service: 03/27/25 The patient is an INPATIENT: No Changes since office visit: No Cold of Flu in the past 2 weeks, No New Medical Problems, No Changes in Medication and No Patient answered all questions The patient has been examined within 24 hours of the surgical procedure. The History & Physical has been completed within 30 days and I have reviewed it.: Yes Section B - Complete if H&P > 30 days Chief Complaint: Other mechanical complication of implanted penile Details of Present Illness: Failure of penile prosthetic Relevant Family History (Specify if Yes): No Relevant Social History: None Present Medications: see Short Stay Collaborative assessment Medical History: No relevant PMH History of Previous Operations: Relevant previous surgery/procedure and date(s) Allergies: Allergies Allergy/AdvReac Type Severity Reaction Status Date / Time No Known Allergies Allergy Verified 03/10/25 11:13 Review of Systems Sugical H&P ROS: Negative: Constitution, Cardiovascular, Respiratory, Neurological, Psychiatric, Hem-Onc, Allergic/Immunologic, Gastrointestinal, Genitourinary, Musculoskeletal, Integumentary, Endocrine and Eyes/Ears/Nose/Throat Exam Surgical H&P Exam: Normal: HEENT, Normal: Heart, Normal: Lungs, Normal: Extremities, Normal: Abdomen, Normal: Skin and Normal: Neurological Plan Diagnosis/Plan: Unchanged (Penile prosthetic replacement) I have reviewed the history and physical and performed a pertinent physical examination on my patient. No changes have occurred unless specified. Time Spent With Patient Time: Total time managing care of this patient today ____ minutes.
[2025-03-27] MEDS: Piperacillin Sodium/Tazobactam 3.375 GM in 0.9 % Sodium Chloride 50 ML IV (08:15)
[2025-03-27] MEDS: Fluconazole in NaCl,Iso-Osm 200 MG/100 ML PIGGYBACK 100 MG IV (08:15)
[2025-03-27] MEDS: vancomycin HCL 1,500 MG in 0.9 % Sodium Chloride 500 ML 333.33 MG IV (08:15)
[2025-03-27] MEDS: Ketorolac Tromethamine 15 MG/ML VIAL IVPUSH (10:30)
[2025-03-27] MEDS: oxyCODONE HCl Immed Release 5 MG TABLET PO (10:35)
[2025-03-27] MEDS: Acetaminophen 1,000 MG/100 ML PIGGYBACK 400 MG IV (10:38)
== END 2025-03-27 11:39 | disposition home or self-care (01) ==
PROVIDERS: PCP Internal Medicine; Visit Provider Urology
PROC: (CPT 54408; principal; 2025-03-27 07:30)
DX: T83.490A Other mechanical complication of implanted penile prosthesis, initial encounter (principal); Y73.2 Prosthetic and other implants, materials and accessory gastroenterology and urology devices associated with adverse incidents; I10 Essential (primary) hypertension; E78.5 Hyperlipidemia, unspecified; E11.9 Type 2 diabetes mellitus without complications; Z79.84 Long term (current) use of oral hypoglycemic drugs; Z79.4 Long term (current) use of insulin; Z79.85 Long-term (current) use of injectable non-insulin antidiabetic drugs; Z79.899 Other long term (current) drug therapy
CPT/HCPCS: 54408; 82947; C1813; J0131; J1450; J1580; J1885; J2003; J2543; J2704; J2795; J3010; J3370; J3371

== ENCOUNTER → 2025-03-27 05:59 | Outpatient (BNV) | payer OTHER, SELFPAY | PROVIDERS: PCP Internal Medicine; Visit Provider Urology | DX: T83.410A Breakdown (mechanical) of implanted penile prosthesis, initial encounter (principal) | CPT/HCPCS: 54410 ==

== ENCOUNTER 2025-04-07 15:08 | Outpatient (AMB) | payer OTHER, SELFPAY ==
--- OUTSIDE RECORDS SUMMARY | 2025-04-07 15:12 | XMS_ITS | Clinical Summary ---
Author Organization [facility] Address [address] [place] [id number] Care Team Providers Care Piano And Organ Refinisher Name Role Phone Rosangela Rodriguez MD Primary Care Provider [phone] Allergies No known active allergies Medications Trulicity 3 MG/0.5ML prefilled pen injection Inject 3 mg under the skin once a week. 3 Active Lantus SoloStar 100 UNIT/ML prefilled pen injection Inject 26 Units under the skin every evening. 3 Active lisinopril (PRINIVIL,ZeSTRIL ) 20 MG tablet Take 1 tablet (20 mg total) by mouth daily. 3 Active metFORMIN (GLUCOPHAGE) 500 MG tablet Take 2 tablets (1,000 mg total) by mouth 2 (two) times a day with meals. 3 Active atorvastatin (LIPITOR) 40 MG tablet Take 1 tablet (40 mg total) by mouth daily. Active acetaminophen (TYLENOL) 325 MG tabletIndications :Acute appendicitis, unspecified acute appendicitis type Take 3 tablets (975 mg total) by mouth 4 times daily (every 6 hours) as needed for mild pain. 360 tablet 3 Active sodium-potassium- magnesium sulfates (Suprep Bowel Prep Kit) 17.5-3.13-1.6 GM/177ML Solution solutionIndicatio ns:Dyspepsia,[place] n cancer screening Follow directions provided by physician's office. 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
--- OUTSIDE RECORDS SUMMARY | 2025-04-07 15:12 | XMS_ITS | Clinical Summary ---
Author Organization [facility] Address [address] [place] [address] Care Team Providers Care Director Of Regional Sales Name Role Phone Rosangela Rodriguez MD Primary [...] this topic Medical Devices Implanted Type Area Roll Tension Tester Device Identifier Shelf Expiration Date Model / Serial / Lot Prosthesis Ams 700 Accessory Kit Penile - [id number] - [id number] Implanted:Qty: 1 on 08/24/2014 by [place]lene [place] [facility] N/A: Penis [employer] 08/01/2019 [id number] / / [id number] Prosthesis Ams 700ms 18cm 12mm Erectile Yazdanism Tactile - [id number] - [id number] Implanted:Qty: 1 on 08/24/2014 by Arlene Hawley [place] [facility] [place]/A: Penis [employer] 05/03/2016 [id number] / / [id number] Prosthesis Ams 700ms 65ml Edwards Penile - [id number] - [id number] Implanted:Qty: 1 on 08/24/2014 by Arlene Hawley MD [place] [facility] N/A: Penis [employer] 06/15/2016 [id number] / / [id number] Rear Tip Pastoral Assistant Implanted:Qty: 1 on 08/24/2014 by Arlene Hawley MD [place] [facility] N/A: Penis 04/27/2018 / / [id number] Description:Ref # [id number] Advance Directives For more information, please contact: [phone] Latest Code Status on File Code Status Date Activated Date Inactivated Comments Full Code 08/24/2014 11:18 AM 08/25/2014 9:10 PM This code status was ascertained in the following way: discussion with patient. Care Teams Director Of Regional Sales Relationship Specialty Start Date End Date Rosangela Rodriguez MD PCP - General Internal Medicine 09/12/24
--- OUTSIDE RECORDS SUMMARY | 2025-04-07 15:12 | XMS_ITS | Clinical Summary ---
Author Organization [employer] Address [address] [place] [address] Care Team Providers Care Business Unit Manager Name Role Phone Unavailable Primary Care Provider [...] hyperglycemia, with long-term current use of insulin ([facility]) Use to monitor for capillary glucose BID 100 each 11 4 04/13/20 25 Active insulin glargine (Lantus SoloStar) 100 UNIT/ML penIndications:Ty pe 2 diabetes mellitus with hyperglycemia, with long-term current use of insulin ([facility]) Inject 54 Units under the skin at bedtime. 45 mL 3 4 Active Dulaglutide (Trulicity) 1.5 MG/0.5ML solution auto-injectorIndi cations:Type 2 diabetes mellitus without complication, with long-term current use of insulin ([facility]) Inject 1.5 mg under the skin 1 [...] hyperglycemia, with long-term current use of insulin ([facility]) TAKE 2 TABLETS BY MOUTH TWICE DAILY [...] (07/07/2023): Added automatically from request for surgery [id number] Diabetes mellitus 11/13/2011 Assessment & Plan (06/27/2024 [...] 5:00 PM EST): Pt reports unable to pear picker rx given not available in [facility], called [facility] pharmacy they have availability hence will send [...] 05/31/2022, 11/19/2021, 05/06/2021, Additional history exists Diabetes: Foot Exam 10/21/2024 10/21/2023, 10/21/2023, 10/21/2023, Additional history exists Diabetes: Hemoglobin A1C 04/15/2025 025, 09/13/2024, 06/27/2024, Additional history exists Tobacco Screening 07/29/2025 07/29/2024 [...] hyperglycemia, with long-term current use of insulin ([facility]) HEPATITIS C ANTIBODY Routine 07/13/2023 8:34 AM EDT Encounter for health-related screening HIV ANTIBODY/ANTIGEN ([facility]) Routine 07/13/2023 8:34 AM EDT Type 2 diabetes mellitus with hyperglycemia, with long-term current use of insulin ([facility]) LIPID PANEL, STANDARD Routine 07/13/2023 8:34 AM EDT Type 2 diabetes mellitus with hyperglycemia, with long-term current use of insulin ([facility]) from Last 3 Months or Most Recently [...] 8:38 AM EDT) Creatinine, Urine 196.58 mg/dL [facility] Microalbumin Urine 87.0 mg/L [facility] Microalbum Creatinine Ratio Ur 44.2 ug/mg cr [facility] Comment:Albumin/Creatinine R atio Reference Ranges: Normal: < 30 ug/mg creatinine Microalbuminuria: 30 - 300 ug/mg creatinineClinical Albuminuria: > 300 ug/mg creatinine 07/13/2023 8:38 AM EDT 07/13/2023 2:37 PM EDT Result [facility] Carolina Campbell MD LAB URINE ORDERABLES Final Re sult Performing Organization Address [facility] Co de Phone Number [facility] [address] [place] [phone] * Hepatitis C Ab (07/13/2023 8:34 AM EDT) Hepatitis C Antibody Nonreactive Nonreactive [facility] Comment:Antibodies to HCV no t detected; does not exclude early acuteHCV infection. Blood 07/13/2023 8:34 AM EDT 07/13/2023 2:25 PM EDT Result [facility] Carolina Campbell MD LAB BLOOD ORDERABLES Final Re sult Performing Organization Address [facility] de Phone Number [facility] [address] [place] [phone] * HIV Ab/Ag ([facility]) (07/13/2023 8:34 AM EDT) HIV AB/AG Nonreactive Nonreactive [facility] Comment:HIV-1 p24 Ag and/or HIV-1/HIV-2 Ab not detected.A test result that is nonreactive does not exclude thepossibility of exposure to or infection with HIV-1 and/orHIV-2. Nonreactive results in this assay for individualswith prior exposure to HIV-1 and/or HIV-2 may be due toantigen and antibody levels that are below the limit ofdetection of this assay.The [facility] HIV Ag/Ab Combo assay result andsupplemental assay results should be interpreted inconjunction with the patient's clinical presentation,history and other laboratory results. If the results areinconsistent with clinical evidence, additional testing issuggested to confirm the result. 07/13/2023 8:34 AM EDT 07/13/2023 2:25 PM EDT Result [facility] Carolina Campbell MD LAB BLOOD ORDERABLES Final Re sult Performing Organization Address [facility] de Phone Number [facility] [address] [place] [phone] [phone] * Lipid Panel, Standard (07/13/2023 8:34 AM EDT) Triglycerides 50 mg/dL [facility] Comment:Desirable Triglyceri de: less than 150 mg/dLBorderline High Triglyceride 150-199 mg/dLHigh Triglyceride: 200-499 mg/dLVery High Triglyceride: greater than or equal to 5OO mg/dL Cholesterol 100 mg/dL [facility] Comment:Desirable Cholestero l: less than 200 mg/dLBorderline High Cholesterol: 200-239 mg/dLHigh Cholesterol: greater than 239 mg/dL LDL Cholesterol Calculated 57 mg/dl [facility] Comment:Desirable LDL: less than 100 mg/dLNear Optimal/Above Optimal LDL: 110- 129 mg/dLBorderline High LDL: 130-159 mg/dLHigh LDL: 160-189 mg/dLVery High LDL: greater than or equal to 190 mg/dL HDL Cholesterol 33 mg/dL [facility] Comment:Desirable HDL: great er than 40 mg/dL Note: This HDL assay may give artificially low results in patients with liver disease. Blood Venous blood specimen / Unknown 07/13/2023 8:34 AM EDT 07/13/2023 2:25 PM EDT Carolina Campbell MD LAB BLOOD ORDERABLES Final Re sult Performing Organization Address [facility] Co de Phone Number [facility] [address] [place] [address] [phone] from Last 3 Months or Most Recently Relevant to Health Maintenance Insurance # [address] [place] [address] [facility] , [address] [place] [phone]
--- OUTSIDE RECORDS SUMMARY | 2025-04-07 15:12 | XMS_ITS | Encounter Summary ---
Author Organization [facility] Address [address] [place] [address] Care Team Providers Care Wind Farm Operations Manager Name Role Phone Rosangela Rodriguez MD Primary Care Provider [phone] Encounter Details Date Type Department Care Team ([facility] Contact Info) Description 09/12/2024 1:38 PM EDT Hospital Encounter [facility] [address] [address] Rosangela Rodriguez MD [address] [address] Social History Tobacco Use Types [...] Department Care Team (Late Contact Info) Description 04/25/2025 9:45 AM EDT Office Visit [facility] [place] [address] [place] [address] Rosangela Rodriguez MD [facility] [address] [place] [address] 09/13/2025 9:00 AM EDT Office Visit [facility] [address] [place] [address] Rosangela Rodriguez MD [facility] [address] [place] [address] documented as of this encounter Visit Diagnoses Not on filedocumented in this encounter Care Teams Wind Farm Operations Manager Relationship Specialty Start Date End Date Rosangela Rodriguez MD PCP - General 09/12/24 09/12/24 documented as of this encounter
--- OUTSIDE RECORDS SUMMARY | 2025-04-07 15:12 | XMS_ITS | Encounter Summary ---
Author Organization [employer] Address [address] [place] [address] Care Team Providers Care Delimber Operator Name Role Phone Carolina Campbell MD Primary Care Provider [phone] Reason for Visit * Reason Comments Med Refill Encounter Details Date Type Department Care Team ([facility] Contact Info) Description 02/17/2024 Refill [facility] [address] [place], [place] [phone] Carolina Campbell MD [address] [place] [address] Type 2 diabetes mellitus with hyperglycemia, with long-term current use of insulin ([facility]) Social History Tobacco Use Types [...] hyperglycemia, with long-term current use of insulin ([facility]) documented in this encounter Additional Health Concerns Assessment Noted Time PHQ-9 Depression Total Score: 0 12/24/19 23 4:13 PM EST documented as of this encounter Care Teams Delimber Operator Relationship Specialty Start Date End Date Carolina Campbell MD [address] [place] [phone] PCP - General Family Medicine 06/26/22 02/18/25 documented as of this encounter
--- OUTSIDE RECORDS SUMMARY | 2025-04-07 15:12 | XMS_ITS | Encounter Summary ---
Author Organization [employer] Address [address] [place] [address] Care Team Providers Care Soil Analyst Name Role Phone Carolina Campbell MD Primary Care Provider [phone] Reason for Visit * Reason Onset Date Comments Referral 07/08/2024 Encounter Details Date Type Department Care Team ([facility] Contact Info) Description 07/08/2024 Telephone [facility] [address] [place] [address] Carolina Campbell MD [address] [place] [address] Referral Social History Tobacco Use Types Packs/Day [...] and was advised to return call however business writer does not see anything noted * Telephone [...] a urology referral, no further details provided. Niuean speaker documented in this encounter Plan of Treatment Not on file documented as of this encounter Visit Diagnoses Not on filedocumented in this encounter Additional Health Concerns Assessment Noted Time PHQ-9 Depression Total Score: 0 12/24/19 23 4:13 PM EST documented as of this encounter Care Teams Soil Analyst Relationship Specialty Start Date End Date Carolina Campbell MD [address] [place] [address] PCP - General Family Medicine 06/26/22 02/18/25 documented as of this encounter
--- OUTSIDE RECORDS SUMMARY | 2025-04-07 15:12 | XMS_ITS | Encounter Summary ---
Author Organization [employer] Address [address] [place] [address] Care Team Providers Care Architectural Associate Name Role Phone Carolina Campbell MD Primary Care Provider [phone] Reason for Visit * Reason Comments Med Refill Encounter Details Date Type Department Care Team ([facility] Contact Info) Description 09/16/2024 Refill [facility] PEDS [address] [place], [place] [phone] Carolina Campbell MD [address] [place] [address] Type 2 diabetes mellitus without complication, with long-term current use of insulin ([facility]) Social History Tobacco Use Types Packs/Day [...] complication, with long-term current use of insulin ([facility]) documented in this encounter Additional Health Concerns Assessment Noted Time PHQ-9 Depression Total Score: 0 12/24/19 23 4:13 PM EST documented as of this encounter Care Teams Architectural Associate Relationship Specialty Start Date End Date Carolina Campbell MD [address] [place] [address] PCP - General Family Medicine 06/26/22 02/18/25 documented as of this encounter
--- OUTSIDE RECORDS SUMMARY | 2025-04-07 15:12 | XMS_ITS | Encounter Summary ---
Author Organization [employer] Address [address] [facility] [address] [place] [address] Care Team Providers Care Securities Teller Name Role Phone Carolina Campbell MD Primary Care Provider [phone] Encounter Details Date Type Department Care Team ([facility] Contact Info) Description 04/29/2023 [facility] Information Management [address] [place], [place] [phone] Carolina Campbell MD [address] [place], [place] [phone] Social History Tobacco Use Types Packs/Day Years [...] documented as of this encounter Care Teams Securities Teller Relationship Specialty Start Date End Date Carolina Campbell MD [address] [place] [address] PCP - General Family Medicine 06/26/22 02/18/25 documented as of this encounter
--- OUTSIDE RECORDS SUMMARY | 2025-04-07 15:12 | XMS_ITS | Encounter Summary ---
Author Organization [employer] Address [address] [place] [address] Care Team Providers Care Ip Litigation Associate Name Role Phone Carolina Campbell MD Primary Care Provider [phone] Reason for Visit * Reason Onset Date Comments Med Refill 05/24/2024 Encounter Details Date Type Department Care Team ([facility] st Contact Info) Description 05/24/2024 Refill [facility]S [address] [place], [place] [phone] Carolina Campbell MD [address] [place] [address] Essential hypertension; Type 2 diabetes mellitus with hyperglycemia, with long-term current use of insulin ([facility]) Social History Tobacco [...] hyperglycemia, with long-term current use of insulin ([facility]) documented in this encounter Additional Health Concerns Assessment Noted Time PHQ-9 Depression Total Score: 0 12/24/19 23 4:13 PM EST documented as of this encounter Care Teams Ip Litigation Associate Relationship Specialty Start Date End Date Carolina Campbell MD [address] [place] [address] PCP - General Family Medicine 06/26/22 02/18/25 documented as of this encounter
--- OUTSIDE RECORDS SUMMARY | 2025-04-07 15:12 | XMS_ITS | Clinical Summary ---
Author Organization [facility] Address [address] [place] [address] Care Team Providers Care Home Advisor Name Role Phone Rosangela Rodriguez MD Primary Care Provider + [phone] Allergies No known active allergies Medications pen [...] tablet (1,000 mg total) by mouth. Active ammonium lactate (AmLactin) 12 % lotion [...] use of insulin (CMS/HCC V24, CMS/HCC V28) 1 EA every 14 (fourteen) days. Box = Kit = EA 6 each 3 02/14/20 25 03/17/2 026 Active tirzepatide (MOUNJARO) 5 mg/0.5 mL injectionIndic ations:Type 2 diabetes mellitus with hyperglycemia, with long-term current use of insulin ([facility] V24, [facility] V28) Inject 0.5 mL (5 mg total) under the skin every 7 (seven) days. 4 mL 02/14/20 25 025 Active lisinopril-hyd roCHLOROthiazi de (PRINZIDE,ZEST ORETIC) 20-12.5 mg per tablet Take 1 tablet by mouth 1 (one) time each day in the morning. 90 each 1 03/20/20 25 025 Active insulin glargine (LANTUS SoloStar) 100 unit/mL (3 mL) injection pen Inject 54 Units under the skin at bedtime. 60 mL 1 03/27/20 25 025 Active lisinopril-hyd roCHLOROthiazi de (PRINZIDE,ZEST ORETIC) 20-12.5 mg per tablet Take 1 tablet by mouth 1 (one) time each day in the morning. 11/21/20 24 025 Discontinued(Re order) insulin glargine (LANTUS) 100 unit/mL injection Inject 54 Units under the skin 1 (one) time each day in the morning. 10 mL 2 01/14/20 25 025 Discontinued(Re order) insulin glargine (LANTUS) 100 unit/mL injection Inject 54 Units under the skin 1 (one) time each day in the morning. 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 Lateral epicondylitis of right elbow 07/07/2023 Acute appendicitis 03/03/2023 Overview (12/08/2024): Added automatically from request for surgery [id number] Diabetes mellitus ([facility] V24, [facility] V28) Obesity 11/13/2011 Pure hypercholesterolemia 11/13/2011 Essential hypertension 11/15/2010 Backache 07/29/2010 Encounters Date Type Department Care Team Description 02/13/2025 8:30 AM EDT Telemedicine [facility] [address] [facility] [address] [place] [address] Rosangela Rodriguez MD Helicobacter pylori gastritis (Primary Dx); Type 2 diabetes mellitus with hyperglycemia, with long-term current use of insulin ([facility] V24, [facility] V28) 01/25/2025 9:00 AM EST Office Visit [facility] [address] [facility] [address] [place] [address] oRsangela Rodriguez MD Type 2 diabetes mellitus with hyperglycemia, with long-term current use of insulin ([facility] V24, [facility] V28) (Primary Dx); Primary hypertension; Hypercholesteremia; Hypertriglyceridemia; B12 deficiency; Dry skin; Lower extremity edema from Last 3 Months Immunizations Name Administration Dates Next Due Hepatitis B (Xpcmflm-T-Vzwcs , Recombivax HB-Adult) 19yo and older 09/19/2024 Influenza Quadrivalent, 0.5m l, preservative free (Fluarix; [...] PROSTHESIS PENILE; Surgeon: Arlene Hawley MD; Location: [facility] MAIN OPERATING ROOM; Service: Urology; Laterality: N/A; Medical History Medical History Date Comments Diabetes mellitus type II, c ontrolled ([facility] V24, [facility] V28) DX:Diabetes mellitus type I I, controlled ([facility]) Social History Tobacco Use Types Packs/Day [...] 36.5 ??C (97.7 ??F) 01/25/2025 9:[address] Respiratory Rate 16 01/25/2025 9:36 AM EST Oxygen Saturation 94% 01/25/2025 9:36 AM EST Inhaled Oxygen Concentration - - Weight 91.4 kg (201 lb 8 oz) 01/25/2025 9:36 AM EST Height 174 cm (5' 8.5 ) 01/25/2025 9:36 AM EST Body Mass Index 30.19 01/25/2025 9:36 AM EST Plan of Treatment Upcoming Encounters Date Type Department Care Team (Late st Contact Info) Description 04/25/2025 9:45 AM EDT Office Visit [facility] [address] [address] Rosangela Rodriguez MD [address] [address] 09/13/2025 9:00 AM EDT Office Visit [facility] [address] [address] Rosangela Rodriguez MD [address] [place] [phone] Health Maintenance Due Date Last Done Comments Diabetes: Annual Foot Exam 1980 Diabetes: Annual Retina Eye Exam 1980 Zoster Vaccines (2 of 2) 11/14/2022 09/19/2022 Colorectal Cancer Screening: Colonoscopy 12/29/2023 Depression Screening 12/29/2023 12/24/2022 Social Influencers of Health Screening 12/29/2023 COVID-19 Vaccine ( season) 2024 05/31/2022, 11/19/2021, 05/06/2021, Additional history exists Hepatitis B Vaccines (2 of 3 - 19+ 3-dose series) 10/17/2024 09/19/2024 Diabetes: Blood Sugar Control Test (HGBA1C) 07/16/2025 [...] hyperglycemia, with long-term current use of insulin ([facility]/HCC V24, CMS/[facility] V28) LIPID PANEL Routine 01/16/2025 8:16 AM [...] use of insulin (CMS/HCC V24, CMS/HCC V28) HEPATITIS C SCREENING Routine 09/13/2024 URINE ALBUMIN CREATININE RATIO Routine 09/13/2024 HIV SCREENING Routine 07/13/2023 from Last 3 Months or Most Recently Relevant to Health Maintenance Results * (ABNORMAL) Helicobacter pylori breath test (02/06/2025 9:00 AM EDT) Pathologist [facility] Helicobacter pylori Breath Test DETECTED( A) NOT DETECTED [employer] Comment: Antimicrobials, proton pump inhibitors, and bismuth [...] 02/07/2025 3:10 PM EDT SPLIT 01/16/2025 FROM [id number] Rosangela Rodriguez MD LAB BODY FLUIDS AND STOOLS O RDERABLES Final Result [facility] ([facility]) [employer] [address] [place] [phone] * Vitamin B12 and folate (01/16/2025 8:16 AM EST) [facility] [address] Vitamin B12 719 200 - 1,100 pg/mL [employer] Folate Serum 22.8 ng/mL [employer] Comment: ? Reference Range ? Low: ? <3.4 ? Borderline: ?3.4-5.4 ? Normal: ?>5.4 Blood Venous blood specimen / Unknown 01/16/2025 8:16 AM EST 01/16/2025 8:16 AM EST Narrative [employer] [facility] ([facility]) - 01/16/2025 11:07 PM EST FASTING:YES PATIENT REFUSED SOME TESTING; PATIENT ENCOURAGED TO RETURN. FASTING: YES Rosangela Rodriguez MD LAB BLOOD ORDERABLES Final R esult Performing Organization Address [facility] Co de Phone Number IFTIKHAR [facility] ([facility]) [employer] [address] [place] [address] * (ABNORMAL) Hemoglobin A1c (01/16/2025 8:16 AM EST) Hemoglobin A1C 8.7(H) <5.7 % of total Hgb [employer] Comment: For someone without known diabetes, a [...] 8:16 AM EST 01/16/2025 8:16 AM EST [employer] [facility] ([facility]) - 01/16/2025 11:07 PM EST FASTING:YES PATIENT REFUSED SOME TESTING; PATIENT ENCOURAGED TO RETURN. FASTING: YES us Rosangela Rodriguez MD LAB BLOOD ORDERABLES Final R esult Performing Organization Address [facility] Co de Phone Number IFTIKHAR [facility] ([facility]) [employer] [address] [place] [phone] * (ABNORMAL) Lipid panel (01/16/2025 8:16 AM EST) Cholesterol Total 183 <200 mg/dL [employer] HDL Cholesterol 39(L) > OR = 40 mg/dL [employer] Triglycerides 121 <150 mg/dL [employer] LDL Cholesterol 121(H) mg/dL (calc) [employer] Comment: Reference range: <100 Desirable range <100 mg/dL for primary prevention; ?? <70 mg/dL for patients with CHD or diabetic patients with > or = 2 CHD risk factors. LDL-C is now calculated using the Farzaneh calculation, which is a validated novel method providing better accuracy than the Friedewald equation in the estimation of LDL-C. Seth SS et al. DYLAN. 2013;310(14): 3675-3844 (http://education.[employer] CRM/faq/ZEP787) Chol/HDLC Ratio 4.7 <5.0 (calc) [employer] Non HDL Cholesterol 144(H) <130 mg/dL (calc) [employer] Comment: For patients with diabetes plus 1 major ASCVD risk factor, treating to a non-HDL-C goal of <100 mg/dL (LDL-C of <70 mg/dL) is considered a therapeutic option. Blood Venous blood specimen / Unknown 01/16/2025 8:16 AM EST 01/16/2025 8:16 AM EST Narrative [facility] ([facility]) - 01/16/2025 11:07 PM EST FASTING:YES PATIENT REFUSED SOME TESTING; PATIENT ENCOURAGED TO RETURN. FASTING: YES us Rosangela Rodriguez MD LAB BLOOD ORDERABLES Final R esult [facility] ([facility]) [employer] [address] [place] [phone] * (ABNORMAL) Comprehensive metabolic panel (01/16/2025 8:16 AM EST) Glucose 157(H) 65 - 99 mg/dL [employer] Comment: ? Fasting reference interval For someone without known diabetes, a glucose value >125 mg/dL indicates that they may have diabetes and this should be confirmed with a follow-up test. Urea Nitrogen (BUN) 25 7 - 25 mg/dL [employer] Creatinine 0.88 0.70 - 1.30 mg/dL [employer] eGFR 102 > OR = 60 mL/min/1 .73m2 [employer] BUN/Creatinine Ratio SEE NOTE: 6 - 22 (calc) [employer] Comment: ?? Not Reported: BUN and Creatinine are within ?? reference range. ? Sodium 135 135 - 146 mmol/L [employer] Potassium 5.1 3.5 - 5.3 mmol/L [employer] Chloride 99 98 - 110 mmol/L [employer] Carbon Dioxide 28 20 - 32 mmol/L [employer] Calcium 10.3 8.6 - 10.3 mg/dL [employer] Total Protein 7.3 6.1 - 8.1 g/dL [employer] Albumin 5.0 3.6 - 5.1 g/dL [employer] Globulin 2.3 1.9 - 3.7 g/dL (calc) [employer] Albumin/Globulin Ratio 2.2 1.0 - 2.5 (calc) [employer] Bilirubin Total 0.4 0.2 - 1.2 mg/dL [employer] Alkaline Phosphatase 124 35 - 144 U/L [employer] Aspartate aminotransferase??(A ST) 22 10 - 35 U/L [employer] Alanine Aminotransferase (ALT) 26 9 - 46 U/L [employer] Blood Venous blood specimen / Unknown 01/16/2025 8:16 AM EST 01/16/2025 8:16 AM EST Narrative [facility] ([facility]) - 01/16/2025 11:07 PM EST FASTING:YES PATIENT REFUSED SOME TESTING; PATIENT ENCOURAGED TO RETURN. FASTING: YES us Rosangela Rodriguez MD LAB BLOOD ORDERABLES Final R esult [facility] ([facility]) [employer] [address] [place] [phone] * Urine Albumin Creatinine Ratio (09/13/2024) HM Urine Albumin Creatinine Ratio Abstracted Historical Provider MD HEALTH MAINTENANCE Final Result * Hepatitis C Screening (09/13/2024) Hepatitis C Screening Abstracted Historical Provider MD HEALTH MAINTENANCE Final Result * HIV Screening (07/13/2023) HIV Screening Abstracted Historical Provider HEALTH MAINTENANCE Final Result from Last 3 Months or Most Recently Relevant to Health Maintenance Insurance [facility] Care Teams Home Advisor Relationship Specialty Start Date End Date Rosangela Rodriguez MD [address] [address] PCP - General Internal Medicine 12/06/24
--- OUTSIDE RECORDS SUMMARY | 2025-04-07 15:12 | XMS_ITS | Encounter Summary ---
Author Organization [facility] Address [address] [place] [address] Care Team Providers Care Director Of Sustainability Programs Name Role Phone Rosangela Rodriguez MD Primary Care Provider + [phone] Encounter Details Date Type Department Care Team ([facility] Contact Info) Description 09/19/2024 10:00 AM EDT Hospital Encounter [facility] [address] [address] Rosangela Rodriguez MD [address] [address] Social History Tobacco Use Types [...] Upcoming Encounters Date Type Department Care Team ([facility] Contact Info) Description 04/25/2025 9:45 AM EDT Office Visit [place] [address] [address] Rosangela Rodriguez MD [address] [place] [address] 09/13/2025 9:00 AM EDT Office Visit [facility] [address] [place] [address] Rosangela Rodriguez MD [address] [place] [address] documented as of this encounter Visit Diagnoses Not on filedocumented in this encounter Care Teams Director Of Sustainability Programs Relationship Specialty Start Date End Date Rosangela Rodriguez MD PCP - General 09/13/24 12/05/24 documented as of this encounter
--- NOTE | 2025-04-07 15:23 | A.OFFVIS_ITS ---
Intake Visit Reasons: 2(Penile Prosthetic Revision) Intake Note: Patient is present for 2 PENILE PROSTHETIC REVISION Urology Medication:NONE Antibiotic Allergy:NONE Blood Thinner:NONE Printed Circuit Board Panels Deburrer Required: No Allergies No Known Allergies Allergy (Verified 04/07/25 15:24) HPI Comments Details: Osmin is a pleasant male. He is a patient of Dr. Campbell. He is seen for following urologic issues - elevated PSA - penile prosthetic malfunction Two week follow-up following penile prosthetic revision for leakage Minimal issues Encouraged him to cycle prosthetic and hold 10 minutes daily Cleared for full sexual activity in 4 weeks Six-month follow-up with repeat PSA Elevated PSA PSA 09/22 - 6.2 Repeat PSA in 2 months May benefit from prostate biopsy PFS Medical History Diabetes mellitus HTN (hypertension) HLD (hyperlipidemia) Surgical History History of penile implant Social History Alcohol intake: former Patient Tobacco Use Status: Never used Tobacco Review of Systems Const Denies chills and Denies fever(s) Card Reports no additional complaints and Denies syncope Resp Denies cough GI Denies abdominal pain and Denies heartburn Reports as per HPI and Denies change in libido Neuro Denies syncope Psych Denies change in libido Endo Denies change in libido Physical Exam Const General: cooperative, healthy appearing, comfortable and no acute distress Orientation/consciousness: patient oriented x3 HEENT Face and sinus: Yes normal facial exam Mouth: moist mucous membranes Neck Neck: Yes normal visual inspection, Yes full ROM and Yes trachea midline Chest Chest palpation & inspection: normal inspection of the chest Resp Effort & Inspection: normal respiratory effort, able to speak in complete sentences and no respiratory distress GI Inspection: Yes normal to inspection Back/Spine/Pelvis Cervical Spine: normal cervical lordosis Thoracic/Lumbar Spine: thoracic and lumbar spine normal to inspection Skin General skin exam: no rashes or lesions noted Neuro General: patient oriented x3, gait normal, tone normal and moves all extremities Extrem General: Yes normal to inspection and Yes capillary refill normal Assessment & Plan Assessment & Plan (1) Malfunction of penile prosthesis: Code(s): T83.490A - Other mechanical complication of implanted penile prosthesis, initial encounter Category: Medical (2) Elevated PSA: Code(s): R97.20 - Elevated prostate specific antigen [PSA] Category: Medical Plan Six-month follow-up PSA Orders: Orders Prostate Specific Antigen 6 Months R97.20 - Elevated prostate specific antigen [PSA] Patient Instructions: This note is constructed using voice recognition software. While every effort has been made to ensure accuracy typesetter perforator operator errors may have been included. Imaging studies, laboratory and physical exam results were discussed and reviewed in detail. No major barriers to patient understanding were identified. An opportunity to ask questions regarding the treatment plan was provided. All questions were answered. The patient expressed understanding and agreement with the above treatment plan. The patient is aware they should contact our office by phone for worsening of their current condition or the appearance of new urologic symptoms. Compliance is encouraged with any medications and followup testing that is ordered. It is a privilege to participate in the urologic care of your patient. If you have any questions or concerns regarding treatment for the above conditions, or other urologic issues, please do not hesitate to contact me. The office telephone contact is [phone]. Sincerely, Dr Hollis Harris MD, [facility] - Urology Compassionate Specialist Care for the Genitourinary System Coding Level of Care Code Est Pt Level 3 (91192) Diagnoses Malfunction of penile prosthesis T83.490A Elevated PSA R97.20
== END 2025-04-07 15:46 | disposition home or self-care (01) ==
LOC: HO.HUSH 15:09
PROVIDERS: PCP Family Medicine; Visit Provider Urology
DX: T83.490A Other mechanical complication of implanted penile prosthesis, initial encounter (principal); R97.20 Elevated prostate specific antigen [PSA]
CPT/HCPCS: 99024

== ENCOUNTER 2025-05-05 08:44 | Outpatient (AMB) | payer OTHER, SELFPAY ==
--- NOTE | 2025-05-05 08:55 | MHC.OFFVIS ---
Intake Visit Reasons: 6wk F/U (Penile Prosthetic Revision) Intake Note: Patient is present for 6 week follow up/PENILE PROSTHETIC REVISION Urology Medication:NONE Antibiotic Allergy:NONE Blood Thinner:NONE Mine Safety Manager Required: No Allergies No Known Allergies Allergy (Verified 05/05/25 09:01) HPI Comments Details: Osmin is a pleasant male. He is a patient of Dr. Campbell. He is seen for following urologic issues - elevated PSA - penile prosthetic malfunction Six week follow-up from prosthetic replacement Cleared for activity Discussed lockout buttons Offered ARIANNA Patient deferred for six-month Repeat PSA and check testosterone at next appointment Erectile dysfunction Penile prosthetic replacement Elevated PSA PSA 09/22 - 6.2 May benefit from prostate biopsy [facility] Medical History Diabetes mellitus HTN (hypertension) HLD (hyperlipidemia) Surgical History History of penile implant Social History Alcohol intake: former Patient Tobacco Use Status: Never used Tobacco Review of Systems Const Denies chills and Denies fever(s) Card Reports no additional complaints and Denies syncope Resp Denies cough GI Denies abdominal pain and Denies heartburn Reports as per HPI and Denies change in libido Neuro Denies syncope Psych Denies change in libido Endo Denies change in libido Physical Exam Const General: cooperative, healthy appearing, comfortable and no acute distress Orientation/consciousness: patient oriented x3 HEENT Face and sinus: Yes normal facial exam Mouth: moist mucous membranes Neck Neck: Yes normal visual inspection, Yes full ROM and Yes trachea midline Chest Chest palpation & inspection: normal inspection of the chest Resp Effort & Inspection: normal respiratory effort, able to speak in complete sentences and no respiratory distress GI Inspection: Yes normal to inspection Back/Spine/Pelvis Cervical Spine: normal cervical lordosis Thoracic/Lumbar Spine: thoracic and lumbar spine normal to inspection Skin General skin exam: no rashes or lesions noted Neuro General: patient oriented x3, gait normal, tone normal and moves all extremities Extrem General: Yes normal to inspection and Yes capillary refill normal Assessment & Plan Assessment & Plan (1) Erectile dysfunction associated with type 2 diabetes mellitus: Code(s): E11.69 - Type 2 diabetes mellitus with other specified complication; N52.1 - Erectile dysfunction due to diseases classified elsewhere Category: Medical (2) Elevated PSA: Code(s): R97.20 - Elevated prostate specific antigen [PSA] Category: Medical Plan Six-month follow-up Orders: Orders Testosterone, Total 5 Months E11.69 - Type 2 diabetes mellitus with other specified complication, N52.1 - Erectile dysfunction due to diseases classified elsewhere Patient Instructions: This note is constructed using voice recognition software. While every effort has been made to ensure accuracy chicken picker errors may have been included. Imaging studies, laboratory and physical exam results were discussed and reviewed in detail. No major barriers to patient understanding were identified. An opportunity to ask questions regarding the treatment plan was provided. All questions were answered. The patient expressed understanding and agreement with the above treatment plan. The patient is aware they should contact our office by phone for worsening of their current condition or the appearance of new urologic symptoms. Compliance is encouraged with any medications and followup testing that is ordered. It is a privilege to participate in the urologic care of your patient. If you have any questions or concerns regarding treatment for the above conditions, or other urologic issues, please do not hesitate to contact me. The office telephone contact is [phone]. Sincerely, Dr Hollis Harris MD, [facility] - Urology Compassionate Specialist Care for the Genitourinary System Coding Level of Care Code Est Pt Level 3 (57361) Diagnoses Erectile dysfunction associated with type 2 diabetes mellitus E11.69; N52.1 Elevated PSA R97.20
--- OUTSIDE RECORDS SUMMARY | 2025-05-05 08:59 | XMS_ITS | Encounter Summary ---
Author Organization [facility] Address [address] [place] [address] Care Team Providers Care Environmental Communications Specialist Name Role Phone Rosangela Rodriguez MD Primary Care Provider + [phone] Reason for Visit * Reason Onset Date Comments Med Refill 04/25/2025 Encounter Details Date Type Department Care Team ([facility] Contact Info) Description 04/25/[address] [address] Sana Snowden MA Med Refill Social History Tobacco Use Types Packs/Day Years Used Date Smoking Tobacco: Never Alcohol Use Standard Drinks/Week Comments No 0 (1 standard drink = 0.6 oz pur e alcohol) Sex and Gender Information Value Date Recorded Sex Assigned at Not on file Legal Sex Male 10:06 AM EST Gender Identity Not on file Sexual Orientation Not on file documented as of this encounter Plan of Treatment Upcoming Encounters Date Type Department Care Team ([facility] Contact Info) Description 05/17/2025 8:30 AM EDT Office Visit [address] [address] Rosangela Rodriguez MD [address] [place] [address] 09/13/2025 9:00 AM EDT Office Visit [address] [address] Rosangela Rodriguez MD [address] [address] documented as of this encounter Visit Diagnoses Not on filedocumented in this encounter Care Teams Environmental Communications Specialist Relationship Specialty Start Date End Date Rosangela Rodriguez MD [address] [place] [address] PCP - General Internal Medicine 12/06/24 documented as of this encounter
== END 2025-05-05 09:04 | disposition home or self-care (01) ==
LOC: HO.HUSH 08:45
PROVIDERS: PCP Family Medicine; Visit Provider Urology
DX: E11.69 Type 2 diabetes mellitus with other specified complication (principal); N52.1 Erectile dysfunction due to diseases classified elsewhere; R97.20 Elevated prostate specific antigen [PSA]
CPT/HCPCS: 99024

== ENCOUNTER 2025-09-16 07:14 | Outpatient (REF) | payer OTHER, SELFPAY ==
--- OUTSIDE RECORDS SUMMARY | 2024-09-12 13:38 | XMS_ITS | Encounter Summary ---
Author Organization [facility] Address [address] [place] [address] Care Team Providers Care Distance Learning Program Coordinator Name Role Phone Rosangela Rodriguez MD Primary Care Provider + [phone] Encounter Details Date Type Department Care Team ([facility] st Contact Info) Description 09/12/2024 1:38 PM EDT Hospital Encounter [facility] [address] [address] Rosangela Rodriguez MD [address] [facility] [address] [place] [address] Social History Tobacco Use Types [...] care for your loved ones. For example, child care attendant or elderly care for an older adult? [...] Description 10/13/2025 8:45 AM EST Office Visit [facility] [address] [facility] [address] [place] [address] Rosangela Rodriguez MD [address] [address] 09/13/2026 8:30 AM EDT Office Visit [facility] [address] [address] Rosangela Rodriguez MD [address] [address] documented as of this encounter Visit Diagnoses Not on filedocumented in this encounter Care Teams Distance Learning Program Coordinator Relationship Specialty Start Date End Date Rosangela Rodriguez MD PCP - General 09/12/24 09/12/24 documented as of this encounter
--- OUTSIDE RECORDS SUMMARY | 2024-09-19 10:00 | XMS_ITS | Encounter Summary ---
Author Organization [facility] Address [address] [place] [address] Care Team Providers Care Technical Support Coordinator Name Role Phone Rosnagela Rodriguez MD Primary Care Provider + [phone] Encounter Details Date Type Department Care Team ([facility] st Contact Info) Description 09/19/2024 10:00 AM EDT Hospital Encounter [facility] [address] [address] Rosangela Rodriguez MD [address] [facility] [address] [place] [address] Social History Tobacco Use Types [...] for your loved ones. For example, children's institution attendant or elderly care for an older [...] Description 10/13/2025 8:45 AM EST Office Visit [facility] [address] [address] Rosangela Rodriguez MD [address] [address] 09/13/2026 8:30 AM EDT [facility] [address] [address] Rosangela Rodriguez MD [facility] N [address] [address] documented as of this encounter Visit Diagnoses Not on filedocumented in this encounter Care Teams Technical Support Coordinator Relationship Specialty Start Date End Date Rosangela Rodriguez MD PCP - General 09/13/24 12/05/24 documented as of this encounter
--- OUTSIDE RECORDS SUMMARY | 2025-09-13 09:00 | XMS_ITS | Encounter Summary ---
Author Organization Michael Ngo [facility] up Address [address] [place] [address] Care Team Providers Care Mill Hand Name Role Phone Rosangela Rodriguez MD Primary Care Provider [phone] Reason for Referral * Consultation (Routine) - Pending Review Specialty Diagnoses / Procedures Referred By Samson killian Referred To Contact Pulmonary Disease / Pulmonology Diagnoses Snoring Rosangela Rodriguez MD [address] [address] Phone: tel: fax: Referral ID Status Reason Start Date Expiration Date Visits Requested Visits Authorized [id number] Pending Review Specialty Services Required 09/13/2026 1 1 * Consultation (Routine) - Pending Review Specialty Diagnoses / Procedures Referred By Samson killian Referred To Contact Urology Diagnoses Enlarged prostate Rosangela Rodriguez MD Formerly [facility] [address] [address] Phone: tel: fax: Referral ID Status Reason Start Date Expiration Date Visits Requested Visits Authorized [id number] Pending Review Specialty Services Required 09/13/2026 1 1 Reason for Visit * Reason Comments Annual Exam Encounter Details Date Type Department Care Team ([facility] st Contact Info) Description 09/13/2025 9:00 AM EDT Office Visit Michael Gu[facility] [place] [address] [facility] [address] [place] [address] Rosangela Rodriguez MD [address] [facility] [address] [place] [address] Annual physical exam (Primary Dx); Vitamin D deficiency; Overweight; Need for immunization against influenza; Enlarged prostate; Snoring Social History Tobacco Use Types Packs/Day Years [...] care for your loved ones. For example, childcare attendant or elderly care for an older [...] Sign Reading Time Taken Comments Blood Pressure 140/90 09/13/2025 9:42 AM EDT Pulse 88 09/13/2025 9:42 AM EDT Temperature 36.6 C (97.9 F) 09/13/2025 9:42 AM EDT Respiratory Rate 14 09/13/2025 9:42 AM EDT Oxygen Saturation 96% 09/13/2025 9:42 AM EDT Inhaled Oxygen Concentration - - Weight 83.8 kg (184 lb 12.8 oz) 09/13/2025 9:42 AM EDT Height 174 cm (5' 8.5 ) 09/13/2025 9:42 AM EDT Body Mass Index 27.69 09/13/2025 9:42 AM EDT documented in this encounter Progress Notes * Rosangela Rodriguez MD - 09/13/2025 9:00 AM EDT Reason for Visit: Chief Complaint Patient presents with Annual Exam HPI Here for his annual exam Allergies: Allergies[1] Current Meds: Current Medications[2] Active Problems: Problem List[3] Immunizations: Immunization History Administered Date(s) Administered Hepatitis B ([id number], Recombivax HB-Adult) 19yo and older 09/19/2024 Influenza Quadrivalent, 0.5ml, preservative free (Fluarix; FluLaval; Fluzone) ages 6mo and older (Afluria) 3yo and older 09/19/2022, 10/21/2023, 09/09/2024 Influenza Split 09/17/2012, 09/21/2013 Influenza trivalent, 0.5mL, preservative free (Fluarix; FluLaval; Fluzone) ages 6mo and older (Afluria) 3 years and older 09/13/2025 Pfizer (ages 12 & older) SARS-CoV-2 COVID-19, mRNA, LNP-S, brayan-sucrose, preservative free 04/04/2021, 05/06/2021, 11/19/2021, 05/31/2022 Pneumococcal conjugate 20 valent (Prevnar 20, PCV 20) 2mo and older 07/07/2023 Pneumococcal polysaccharide 23 valent (Pneumovax 23) 2yo and older 03/11/2012, 09/09/2024 Tdap Tetanus diptheria acellular pertussis (Boostrix; Adacel) 7yo and older 09/21/2013, 10/21/2023 Zoster recombinant (Shingrix) 19yo and older 09/19/2022 Test Results: No visits with results within 1 Week(s) from this visit. Latest known visit with results is: Office Visit on 06/05/2025 Component Date Value Ref Range Status Glucose 06/29/2025 173 (H) 65 - 99 mg/dL Final Comment: Fasting reference interval For someone without known diabetes, a glucose value >125 mg/dL indicates that they may have diabetes and this should be confirmed with a follow-up test. Urea Nitrogen (BUN) 06/29/2025 25 7 - 25 mg/dL Final Creatinine 06/29/2025 0.90 0.70 - 1.30 mg/dL Final eGFR 06/29/2025 101 > OR = 60 mL/min/1.73m2 Final BUN/Creatinine Ratio 06/29/2025 SEE NOTE: 6 - 22 (calc) Final Comment: Not Reported: BUN and Creatinine are within reference range. Sodium 06/29/2025 132 (L) 135 - 146 mmol/L Final Potassium 06/29/2025 4.8 3.5 - 5.3 mmol/L Final Chloride 06/29/2025 99 98 - 110 mmol/L Final Carbon Dioxide 06/29/2025 24 20 - 32 mmol/L Final Calcium 06/29/2025 9.9 8.6 - 10.3 mg/dL Final Total Protein 06/29/2025 7.5 6.1 - 8.1 g/dL Final Albumin 06/29/2025 5.0 3.6 - 5.1 g/dL Final Globulin 06/29/2025 2.5 1.9 - 3.7 g/dL (calc) Final Albumin/Globulin Ratio 06/29/2025 2.0 1.0 - 2.5 (calc) Final Bilirubin Total 06/29/2025 0.7 0.2 - 1.2 mg/dL Final Alkaline Phosphatase 06/29/2025 93 35 - 144 U/L Final Aspartate aminotransferase (AST) 06/29/2025 22 10 - 35 U/L Final Alanine Aminotransferase (ALT) 06/29/2025 29 9 - 46 U/L Final Cholesterol Total 06/29/2025 227 (H) <200 mg/dL Final HDL Cholesterol 06/29/2025 40 > OR = 40 mg/dL Final Triglycerides 06/29/2025 194 (H) <150 mg/dL Final LDL Cholesterol 06/29/2025 154 (H) mg/dL (calc) Final Comment: Reference range: <100 Desirable range <100 mg/dL for primary prevention; <70 mg/dL for patients with CHD or diabetic patients with > or = 2 CHD risk factors. LDL-C is now calculated using the Seth-Silver calculation, which is a validated novel method providing better accuracy than the Friedewald equation in the estimation of LDL-C. Seth NIEVES et al. DYLAN. 2013;310(19): 2633-9829 (http://education.CouchOne.com/faq/FTE730) Chol/HDLC Ratio 06/29/2025 5.7 (H) <5.0 (calc) Final Non HDL Cholesterol 06/29/2025 187 (H) <130 mg/dL (calc) Final Comment: For patients with diabetes plus 1 major ASCVD risk factor, treating to a non-HDL-C goal of <100 mg/dL (LDL-C of <70 mg/dL) is considered a therapeutic option. Vitamin B12 06/29/2025 739 200 - 1,100 pg/mL Final Folate Serum 06/29/2025 >24.0 ng/mL Final Comment: Reference Range Low: <3.4 Borderline: 3.4-5.4 Normal: >5.4 Hemoglobin A1C 06/29/2025 8.2 (H) <5.7 % Final Comment: For someone without known diabetes, a [...] A1c for diagnosis of diabetes for children. Helicobacter pylori Breath Test 06/29/2025 NOT DETECTED NOT DETECTED Final Comment: Antimicrobials, proton pump inhibitors, and bismuth preparations are known to suppress H. pylori, and ingestion of these prior to H. pylori diagnostic testing may lead to false negative results. If clinically indicated, the test may be repeated on a new specimen obtained two weeks after discontinuing treatment. However, a positive result is still clinically valid. Review of Systems Constitutional: Negative. HENT: Negative. Eyes: Negative. Respiratory: Negative. Cardiovascular: Negative. Gastrointestinal: Negative. Endocrine: Negative. Genitourinary: Negative. Musculoskeletal: Negative. Skin: Negative. Breast: negative. Allergic/Immunologic: Negative. Neurological: Negative. Hematological: Negative. Psychiatric/Behavioral: Negative. All other systems reviewed and are negative. Past Medical History: Medical History[4] Surgical History: Surgical History[5] Family History: Family History[6] Social History: Social History Socioeconomic History Marital status: Single Spouse name: Not on file Number of children: Not on file Years of education: Not on file Highest education level: Not on file Occupational History Not on file Tobacco Use Smoking status: Never Smokeless tobacco: Not on file Substance and Sexual Activity Alcohol use: No Drug use: No Sexual activity: Not on file Other Topics Concern Not on file Social History Narrative Not on file Vitals: Vitals: 09/13/25 0942 BP: (!) 140/90 Pulse: 88 Resp: 14 Temp: 36.6 ??C (97.9 ??F) SpO2: 96% Body mass index is 27.69 kg/m??. Physical Exam Vitals and nursing note reviewed. Constitutional: General: He is not in acute distress. Appearance: Normal appearance. He is normal weight. He is not ill-appearing, toxic-appearing or diaphoretic. HENT: Head: Normocephalic and atraumatic. Right Ear: Tympanic membrane, ear canal and external ear normal. There is no impacted cerumen. Left Ear: Tympanic membrane, ear canal and external ear normal. There is no impacted cerumen. Nose: Nose normal. No congestion or rhinorrhea. Mouth/Throat: Mouth: Mucous membranes are moist. Pharynx: Oropharynx is clear. No oropharyngeal exudate or posterior oropharyngeal erythema. Eyes: General: No scleral icterus. Right eye: No discharge. Left eye: No discharge. Extraocular Movements: Extraocular movements intact. Conjunctiva/sclera: Conjunctivae normal. Pupils: Pupils are equal, round, and reactive to light. Neck: Vascular: No carotid bruit. Cardiovascular: Rate and Rhythm: Normal rate and regular rhythm. Pulses: Normal pulses. Heart sounds: Normal heart sounds. No murmur heard. No friction rub. No gallop. Pulmonary: Effort: Pulmonary effort is normal. No respiratory distress. Breath sounds: Normal breath sounds. No stridor. No wheezing, rhonchi or rales. Chest: Chest wall: No tenderness. Abdominal: General: Abdomen is flat. Bowel sounds are normal. There is no distension. Palpations: Abdomen is soft. There is no mass. Tenderness: There is no abdominal tenderness. There is no right CVA tenderness, left CVA tenderness, guarding or rebound. Hernia: No hernia is present. Genitourinary: Penis: Normal. Testes: Normal. Rectum: Normal. Guaiac result negative. Comments: Enlarged prostate Musculoskeletal: General: No swelling, tenderness, deformity or signs of injury. Normal range of motion. Cervical back: Normal range of motion and neck supple. No rigidity or tenderness. Right lower leg: No edema. Left lower leg: No edema. Lymphadenopathy: Cervical: No cervical adenopathy. Skin: General: Skin is warm and dry. Capillary Refill: Capillary refill takes 2 to 3 seconds. Coloration: Skin is not jaundiced or pale. Findings: No bruising, erythema, lesion or rash. Neurological: General: No focal deficit present. Mental Status: He is alert and oriented to person, place, and time. Mental status is at baseline. Cranial Nerves: No cranial nerve deficit. Sensory: No sensory deficit. Motor: No weakness. Coordination: Coordination normal. Gait: Gait normal. Deep Tendon Reflexes: Reflexes normal. Psychiatric: Mood and Affect: Mood normal. Behavior: Behavior normal. Thought Content: Thought content normal. Judgment: Judgment normal. Assessment/Plan: 1. Annual physical exam Comprehensive metabolic panel Lipid panel Hemoglobin A1c CBC and differential Iron with TIBC and ferritin Vitamin B12 and folate Vitamin D 25 hydroxy Thyroid stimulating hormone and free thyroxine Urinalysis with microscopic reflex culture Microalbumin creatinine urine ratio Comprehensive metabolic panel Lipid panel Hemoglobin A1c CBC and differential Iron with TIBC and ferritin Vitamin B12 and folate Vitamin D 25 hydroxy Thyroid stimulating hormone and free thyroxine Urinalysis with microscopic reflex culture Microalbumin creatinine urine ratio ECG 12 lead 2. Vitamin D deficiency Comprehensive metabolic panel Lipid panel Hemoglobin A1c CBC and differential Iron with TIBC and ferritin Vitamin B12 and folate Vitamin D 25 hydroxy Thyroid stimulating hormone and free thyroxine Urinalysis with microscopic reflex culture Microalbumin creatinine urine ratio Comprehensive metabolic panel Lipid panel Hemoglobin A1c CBC and differential Iron with TIBC and ferritin Vitamin B12 and folate Vitamin D 25 hydroxy Thyroid stimulating hormone and free thyroxine Urinalysis with microscopic reflex culture Microalbumin creatinine urine ratio 3. Overweight Comprehensive metabolic panel Lipid panel Hemoglobin A1c CBC and differential Iron with TIBC and ferritin Vitamin B12 and folate Vitamin D 25 hydroxy Thyroid stimulating hormone and free thyroxine Urinalysis with microscopic reflex culture Microalbumin creatinine urine ratio Comprehensive metabolic panel Lipid panel Hemoglobin A1c CBC and differential Iron with TIBC and ferritin Vitamin B12 and folate Vitamin D 25 hydroxy Thyroid stimulating hormone and free thyroxine Urinalysis with microscopic reflex culture Microalbumin creatinine urine ratio 4. Need for immunization against influenza Influenza trivalent, 0.5mL, preservative free (Fluarix; FluLaval; Fluzone) ages 6mo and older (Afluria) 3 years and older 5. Enlarged prostate Ambulatory referral to Urology 6. Snoring Ambulatory referral to Pulmonology Z00.00 Done today EKG normal sinus rhythm no acute ischemic or dynamic changes Overweight Body mass index is 27.69 kg/m??. Patient was encouraged to increase physical activity at least 30 minutes for 5 times a week. Patient was recommended to lose weight. Vitamin D deficiency Advised to get vitamin D level for next visit Recommended to continue with vitamin D as directed. Enlarged prostate To get urology eval Snoring Refer to pulmonology HM Depression screening negative Flu vacc and hep b given from office Orders: Orders Placed This Encounter Procedures Influenza trivalent, 0.5mL, preservative free (Fluarix; FluLaval; Fluzone) ages 6mo and older (Afluria) 3 years and older Hepatitis B ([id number], Recombivax HB-Adult) 19yo and older Comprehensive metabolic panel Standing Status: Future Number of Occurrences: 1 Expiration Date: 09/13/2026 Lipid panel Standing Status: Future Number of Occurrences: 1 Expiration Date: 09/13/2026 Release to patient: Immediate [1] Hemoglobin A1c Standing Status: Future Number of Occurrences: 1 Expiration Date: 09/13/2026 CBC and differential Standing Status: Future Number of Occurrences: 1 Expiration Date: 09/13/2026 Iron with TIBC and ferritin Standing Status: Future Number of Occurrences: 1 Expiration Date: 09/13/2026 Release to patient: Immediate [1] Vitamin B12 and folate Standing Status: Future Number of Occurrences: 1 Expiration Date: 09/13/2026 Release to patient: Immediate [1] Vitamin D 25 hydroxy Standing Status: Future Number of Occurrences: 1 Expiration Date: 09/13/2026 Release to patient: Immediate [1] Thyroid stimulating hormone and free thyroxine Standing Status: Future Number of Occurrences: 1 Expiration Date: 09/13/2026 Release to patient: Immediate [1] Urinalysis with microscopic reflex culture Standing Status: Future Number of Occurrences: 1 Expiration Date: 09/13/2026 Microalbumin creatinine urine ratio Standing Status: Future Number of Occurrences: 1 Expiration Date: 09/13/2026 Release to patient: Immediate [1] CBC auto differential Ambulatory referral to Urology Standing Status: Future Expiration Date: 09/13/2026 Referral Priority: Routine Referral Type: Consultation Referral Reason: Specialty Services Required Requested Specialty: Urology Number of Visits Requested: 1 Ambulatory referral to Pulmonology Standing Status: Future Expiration Date: 09/13/2026 Referral Priority: Routine Referral Type: Consultation Referral Reason: Specialty Services Required Requested Specialty: Pulmonary Disease Number of Visits Requested: 1 ECG 12 lead Reason for Exam:: Annual Physical Prescriptions Ordered This Encounter: Medications Taking[7] No orders of the defined types were placed in this encounter. Health Management List: Health Maintenance Topic Date Due Colorectal Cancer Screening: Colonoscopy Never done Diabetes: Annual Foot Exam Never done Diabetes: Annual Retina Eye Exam Never done RSV Immunization Adult Patients (1 - Risk 50-74 years 1-dose series) Never done Zoster Vaccines (2 of 2) 11/14/2022 Hepatitis B Vaccines (2 of 3 - 19+ 3-dose series) 10/17/2024 Depression Screening Never done Diabetes: Annual Urine Albumin-Creatinine Ratio (uACR) 09/13/2025 Diabetes: Blood Sugar Control Test (HGBA1C) 12/30/2025 Diabetes: Annual GFR (Glomerular Filtration Rate) 06/29/2026 Hypertension/CHF/CAD Annual BMP Blood Test 06/29/2026 Social Influencers of Health Screening 09/13/2026 Cholesterol Screening (Lipid Panel) 06/29/2030 DTaP,Tdap,and Td Vaccines (3 - Td or Tdap) 10/21/2033 Influenza Vaccine Completed Pneumococcal Vaccine: 50+ Years Completed HIV Screening Completed Hepatitis C Screening Completed HIB Vaccines Aged Out IPV Vaccines Aged Out Hepatitis A Vaccines Aged Out MMR Vaccines Aged Out Varicella Vaccines Aged Out Meningococcal ACWY Vaccine Aged Out Meningococcal B Vaccine Aged Out HPV Vaccines Aged Out RSV Immunization Patients Under 20 months Aged Out COVID-19 Vaccine Discontinued Health Management Plan: regular exercise weight loss stop smoking reduce cholesterol avoid sun seat belts reduce alcohol follow blood pressure improve sleep habits eye exam routine HOME CARE MANAGER RN exam breast self-exam testicular self-exam HIV/STD prevention Rosangela Rodriguez MD I personally spent a total of minutes caring for the patient today. This includes the time I spent reviewing the medical record in preparation for the visit, performing a medically appropriate history and exam,and/ or counseling and educating the patient/ family/ caregiver, ordering services or referrals, and updating the record and documenting all services. [1] No Known Allergies [2] Current Outpatient Medications Medication Sig Dispense Refill ammonium lactate (AmLactin) 12 % lotion Apply topically if needed for dry skin. 400 g 0 atorvastatin (LIPITOR) 40 mg tablet Take 1 tablet (40 mg total) by mouth 1 (one) time each day in the morning. 90 each 3 hydroCHLOROthiazide 12.5 mg tablet Take 1 tablet (12.5 mg total) by mouth 1 (one) time each day. 90each 0 insulin glargine (LANTUS SoloStar) 100 unit/mL (3 mL) injection pen Inject 54 Units under the skin at bedtime. 60 mL 1 lisinopril-hydroCHLOROthiazide (PRINZIDE,ZESTORETIC) 20-12.5 mg per tablet Take 1 tablet by mouth 1(one) time each day in the morning. 90 each 1 metFORMIN (GLUCOPHAGE) 1,000 mg tablet Take 1 tablet (1,000 mg total) by mouth 2 (two) times a day with meals. 180 each 0 pen needle, diabetic (BD Ultra-Fine Wendy Pen Needle) 32 gauge x 5/32 needle 4 (four) times a day. 300 each 3 No current facility-administered medications for this visit. [3] Patient Active Problem List Diagnosis Acute appendicitis Backache Diabetes mellitus (CMS/HCC V24, CMS/HCC V28) Essential hypertension Failure of penile implant (CMS/[facility] V24) Lateral epicondylitis of right elbow Obesity Pure hypercholesterolemia [4] Past Medical History: Diagnosis Date Diabetes mellitus type II, controlled (CMS/HCC V24, CMS/[facility] V28) DX:Diabetes mellitus type II, controlled ([facility]) [5] Past Surgical History: Procedure Laterality Date ELBOW SURGERY PROCEDURE:ELBOW SURGERY;COMMENT:left HAND SURGERY PROCEDURE:HAND SURGERY;COMMENT:left KNEE SURGERY PROCEDURE:KNEE SURGERY;COMMENT:left PENILE PROSTHESIS IMPLANT N/A 08/24/2014 PROCEDURE:PENILE PROSTHESIS IMPLANT;COMMENT:Procedure: INSERT INFLATABLE PROSTHESIS PENILE; Surgeon: Arlene Hawley MD; Location: [facility] MAIN OPERATING ROOM; Service: Urology; Laterality: N/A; [6] No family history on file. [7] No outpatient medications have been marked as taking for the 09/13/25 encounter (Office Visit) withRosangela Rodriguez MD. documented in this encounter Plan of Treatment Upcoming Encounters Date Type Department Care Team (Late st Contact Info) Description 10/13/2025 8:45 AM EST Office Visit Michael Colmenares [address] [address] Rosangela Rodriguez MD [address] [place] [address] 09/13/2026 8:30 AM EDT Office Visit Michael Colmenares [address] [address] Rosangela Rodriguez MD [address] [facility] [address] [place] [address] Scheduled Orders Name Type Priority Associated Diagnoses Orde r Schedule Comprehensive metabolic panel Lab Routine Annual physical exam Vitamin D deficiency Overweight 1 Occurrences starting 09/13/2025 until 09/13/2026 Lipid panel Lab Routine Annual physical exam Vitamin D deficiency Overweight 1 Occurrences starting 09/13/2025 until 09/13/2026 Hemoglobin A1c Lab Routine Annual physical exam Vitamin D deficiency Overweight 1 Occurrences starting 09/13/2025 until 09/13/2026 CBC and differential Lab STAT Annual physical exam Vitamin D deficiency Overweight 1 Occurrences starting 09/13/2025 until 09/13/2026 Iron with TIBC and ferritin Lab Routine Annual physical exam Vitamin D deficiency Overweight 1 Occurrences starting 09/13/2025 until 09/13/2026 Vitamin B12 and folate Lab Routine Annual physical exam Vitamin D deficiency Overweight 1 Occurrences starting 09/13/2025 until 09/13/2026 Vitamin D 25 hydroxy Lab Routine Annual physical exam Vitamin D deficiency Overweight 1 Occurrences starting 09/13/2025 until 09/13/2026 Thyroid stimulating hormone and free thyroxine Lab Routine Annual physical exam Vitamin D deficiency Overweight 1 Occurrences starting 09/13/2025 until 09/13/2026 Urinalysis with microscopic reflex culture Lab Routine Annual physical exam Vitamin D deficiency Overweight 1 Occurrences starting 09/13/2025 until 09/13/2026 Microalbumin creatinine urine ratio Lab Routine Annual physical exam Vitamin D deficiency Overweight 1 Occurrences starting 09/13/2025 until 09/13/2026 CBC auto differential Lab STAT Annual physical exam Vitamin D deficiency Overweight Ordered: 09/13/2025 Scheduled Referrals Name Type Priority Associated Diagnoses Order Schedule Ambulatory referral to Urology Outpatient Referral Routine Enlarged prostate 1 Occurrences starting 09/13/2025 until 09/13/2026 Ambulatory referral to Pulmonology Outpatient Referral Routine Snoring 1 Occurrences starting 09/13/2025 until 09/13/2026 documented as of this encounter Procedures Procedure Name Priority Date/Time Associated Diagnosis Comments ECG 12-LEAD Routine 09/13/2025 9:35 AM EDT Annual physical exam documented in this encounter Results * ECG 12 lead (09/13/2025 9:35 AM EDT) Narrative Rosangela Rodriguez MD - 09/13/2025 9:35 AM EDT NSR no acute ischemic or dynamic changes Rosangela Rodriguez MD ECG ORDERABLES Final Result documented in this encounter Visit Diagnoses Diagnosis Annual physical exam- Primary Routine general medical examination at a health care facility Vitamin D deficiency Overweight Need for immunization against influenza Need for prophylactic vaccination and inoculation against influenza Enlarged prostate Hypertrophy of prostate without urinary obstruction and other lower urinary tract symptoms (LUTS) Snoring Other dyspnea and respiratory abnormality documented in this encounter Orders Immunization/Injection Count Last Ordered Date First Ordered Date HEPATITIS B ([id number] , RECOMBIVAX-ADULT) 19YO AND OLDER 1 09/13/2025 INFLUENZA TRIVALENT, 0.5ML, PRESERVATIVE FREE (FLUARIX; FLULAVAL; FLUZONE) AGES 6MO AND OLDER (AFLURIA) 3 YEARS AND OLDER 1 09/13/2025 documented in this encounter Additional Health Concerns Assessment Noted Time PHQ-9 Depression Total Score: 0 09/13/20 9:46 AM EDT documented as of this encounter Care Teams Mill Hand Relationship Specialty Start Date End Date Rosangela Rodriguez MD [address] [id number] PCP - General Internal Medicine 12/06/24 documented as of this encounter
--- OUTSIDE RECORDS SUMMARY | 2025-09-16 07:18 | XMS_ITS | Encounter Summary ---
Author Organization [employer] Address [address] [facility] [address] [place] [address] Care Team Providers Care Men'S Basketball Coach Name Role Phone Carolina Capmbell MD Primary Care Provider [phone] Encounter Details Date Type Department Care Team ([facility] Contact Info) Description 04/29/2023 [facility] Information Management [address] [place] [address] Carolina Campbell MD [address] [place], [place] [id number] Social History Tobacco Use Types Packs/Day Years [...] documented as of this encounter Care Teams Men'S Basketball Coach Relationship Specialty Start Date End Date Carolina Campbell MD [address] [place] [address] PCP - General Family Medicine 06/26/22 02/18/25 documented as of this encounter
--- OUTSIDE RECORDS SUMMARY | 2025-09-16 07:18 | XMS_ITS | Clinical Summary ---
Author Organization [facility] Address [address] [place] [id number] Care Team Providers Care Pipe And Boiler Covers Supervisor Name Role Phone Rosangela Rodriguez MD Primary Care Provider Allergies No known active allergies Medications Trulicity [...] Bowel Prep Kit) 17.5-3.13-1.6 GM/177ML Solution solutionIndicatio ns:Dyspepsia,[place] n cancer screening Follow directions provided by physician's office. 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 on file Not on file Not on file Last Filed Vital Signs Vital Sign Reading Time Taken Comments Blood Pressure 130/80 12/27/2024 8:09 AM EST Pulse 86 12/27/2024 8:09 AM EST Temperature 36.2 C (97.2 F) 03/05/2023 9:39 AM EDT Respiratory Rate 16 03/05/2023 9:14 AM EDT [...] 50+ (1 of 1 - PCV) 2020 RSV Vaccine 50 years and old er and Patients (1 - Risk 50-74 years 1-dose series) 2020 Zoster (Shingles) Vaccine (1 of 2) 2020 Influenza Vaccine 06/30/2025 09/09/2024, , 09/19/2022, Additional history exists COVID-19 Vaccine (2024-2 6 season) 2025 05/31/2022, 11/19/2021, 05/06/2021, Additional history exists Insurance [facility] Advance Directives * Full Code (Latest Code Status on File) Date Activated Date Inactivated Comments 03/04/2023 5:52 AM Care Teams Pipe And Boiler Covers Supervisor Relationship Specialty Start Date End Date Rosangela Rodriguez MD PCP - General 09/23/24
--- OUTSIDE RECORDS SUMMARY | 2025-09-16 07:18 | XMS_ITS | Clinical Summary ---
Author Organization [employer] Address [address] [facility] [place] [address] Care Team Providers Care Research Consultant Name Role Phone Unavailable Primary Care Provider [...] times daily. 100 each 11 4 Active insulin glargine (Lantus SoloStar) 100 UNIT/ML penIndications:Ty pe 2 diabetes mellitus with hyperglycemia, with long-term current use of insulin ([facility]) Inject 54 Units under the skin at bedtime. 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 Backache 07/29/2010 Immunizations Immunization Administration Dates Next Due Influenza injectable quadriv [...] 80 07/29/2024 1:43 PM EDT Temperature 36.8 C (98.2 F) 07/29/2024 1:43 PM EDT Respiratory Rate 20 07/29/2024 1:43 PM EDT [...] 1970 FIT 1970 FOBT 1970 Sigmoidoscopy 1970 Disability Screening 1970 Eye Exam 1980 Alcohol/Substance Use Screening 1982 Zoster Vaccines (2 of 2) 11/14/2022 09/19/2022 Depression Screening 12/24/2023 12/24/2022, 12/24/19 23 SDOH Screening 12/24/2023 12/24/2022 Diabetes: Urine Protein Screening 07/13/2024 07/13/2023 Lipid Panel 07/13/2024 07/13/2023, 06/19/2022 Hepatitis B Vaccines (2 of 3 - 19+ 3-dose series) 10/17/2024 09/19/2024 Diabetes: Foot Exam 10/21/2024 10/21/2023, 10/21/2023, 10/21/2023, Additional history exists Tobacco Screening 07/29/2025 07/29/2024 COVID-19 Vaccine ( season) 2025 05/31/2022, 11/19/2021, 05/06/2021, Additional history exists Influenza Vaccine (#1) 2025 4, 10/21/2023, 09/19/2022, Additional history exists Diabetes: Hemoglobin A1C 09/29/2025 025, 01/16/2025, 06/27/2024, Additional history exists DTaP/Tdap/Td Vaccines (3 - Td or Tdap) 10/21/2033 10/21/2023, 09/21/2013 RSV Patients and Patients Aged 60 years or older (1 - 1-dose 75+ series) 2045 HIV Screening Completed 07/13/2023 Hepatitis C Screening Completed 07/13/2023 Pneumococcal Vaccine: 50+ Years Completed 09/09/2024, 07/07/2023, [...] complication, with long-term current use of insulin ([facility]) ALBUMIN, RANDOM URINE W/CREATININE Routine 07/13/2023 8:38 AM EDT Type 2 diabetes mellitus with hyperglycemia, with long-term current use of insulin ([facility]) HEPATITIS C ANTIBODY Routine 07/13/2023 8:34 AM EDT Encounter for health-related screening HIV ANTIBODY/ANTIGEN ([place] [facility]) Routine 07/13/2023 8:34 AM EDT Type 2 diabetes mellitus with hyperglycemia, with long-term current use of insulin ([facility]) LIPID PANEL, STANDARD Routine 07/13/2023 8:34 AM EDT Type 2 diabetes mellitus with hyperglycemia, with long-term current use of insulin ([facility]) from Last 3 Months or Most Recently Relevant to Health Maintenance Results * (ABNORMAL) POCT HGB A1C (06/27/2024 4:40 PM EDT) Hemoglobin A1C 8.3(A) 4.0 - 6.0 % QC Media Lot # [id number] Lot# Expiration Date ,661 Blood 06/27/2024 4:40 PM EDT us Carolina Campbell MD POINT OF CARE TEST ENTER/EDIT ORDERABLES Final Result * Albumin, Random Urine W/Creatinine (07/13/2023 8:38 AM EDT) Creatinine, Urine 196.58 mg/dL [facility] Microalbumin Urine 87.0 mg/L [facility] Microalbum Creatinine Ratio Ur 44.2 ug/mg cr [facility] Comment:Albumin/Creatinine R atio Reference Ranges: Normal: < 30 ug/mg creatinine Microalbuminuria: 30 - 300 ug/mg creatinineClinical Albuminuria: > 300 ug/mg creatinine 07/13/2023 8:38 AM EDT 07/13/2023 2:37 PM EDT us Carolina Campbell MD LAB URINE ORDERABLES Final Re sult Performing Organization Address [facility] Co de Phone Number [facility] [address] [place] [phone] * Hepatitis C Ab (07/13/2023 8:34 AM EDT) Hepatitis C Antibody Nonreactive Nonreactive [facility] Comment:Antibodies to HCV no t detected; does not exclude early acuteHCV infection. Blood 07/13/2023 8:34 AM EDT 07/13/2023 2:25 PM EDT Carolina Campbell MD LAB BLOOD ORDERABLES Final Re sult Performing Organization Address [facility] de Phone Number [facility] [address] [place] [phone] * HIV Ab/Ag ([facility]) (07/13/2023 8:34 AM EDT) HIV AB/AG Nonreactive Nonreactive [facility] Comment:HIV-1 p24 Ag and/or HIV-1/HIV-2 Ab not detected.A test result that is nonreactive does not exclude thepossibility of exposure to or infection with HIV-1 and/orHIV-2. Nonreactive results in this assay for individualswith prior exposure to HIV-1 and/or HIV-2 may be due toantigen and antibody levels that are below the limit ofdetection of this assay.[employer] HIV Ag/Ab Combo assay result andsupplemental assay results should be interpreted inconjunction with the patient's clinical presentation,history and other laboratory results. If the results areinconsistent with clinical evidence, additional testing issuggested to confirm the result. 07/13/2023 8:34 AM EDT 07/13/2023 2:25 PM EDT Carolina Campbell MD LAB BLOOD ORDERABLES Final Re sult Performing Organization Address [facility]/State/ZIP Co de Phone Number [facility] [address] [place] [phone] * Lipid Panel, Standard (07/13/2023 8:34 AM EDT) Triglycerides 50 mg/dL [facility] Comment:Desirable Triglyceri de: less than 150 mg/dLBorderline High Triglyceride 150-199 mg/dLHigh Triglyceride: 200-499 mg/dLVery High Triglyceride: greater than or equal to 5OO mg/dL Cholesterol 100 mg/dL [facility] Comment:Desirable Cholestero l: less than 200 mg/dLBorderline High Cholesterol: 200-239 mg/dLHigh Cholesterol: greater than 239 mg/dL LDL Cholesterol Calculated 57 mg/dl [facility] Comment:Desirable LDL: less than 100 mg/dLNear Optimal/Above Optimal LDL: 110- 129 mg/dLBorderline High LDL: 130-159 mg/dLHigh LDL: 160-189 mg/dLVery High LDL: greater than or equal to 190 mg/dL HDL Cholesterol 33 mg/dL [facility] Comment:Desirable HDL: great er than 40 mg/dL Note: This HDL assay may give artificially low results in patients with liver disease. Blood Venous blood specimen / Unknown 07/13/2023 8:34 AM EDT 07/13/2023 2:25 PM EDT us Carolina Campbell MD LAB BLOOD ORDERABLES Final Re sult [facility] [address] [place] [phone] from Last 3 Months or Most Recently Relevant to Health Maintenance Insurance [facility] , [address] [place] [address] [address] [place] [address]
--- OUTSIDE RECORDS SUMMARY | 2025-09-16 07:18 | XMS_ITS | Encounter Summary ---
Author Organization [employer] Address [address] [facility] [address] [place] [address] Care Team Providers Care Package Handler Name Role Phone Carolina Campbell MD Primary Care Provider [phone] Reason for Visit * Reason Comments Med Refill Encounter Details Date Type Department Care Team ([facility] Contact Info) Description 09/16/2024 Refill [facility] [address] [place], [place] [phone] Carolina Campbell MD [address] [place] [phone] Type 2 diabetes mellitus without complication, with long-term current use of insulin ([facility]) Social History Tobacco Use Types Packs/Day [...] complication, with long-term current use of insulin (HCC) documented in this encounter Additional Health Concerns Assessment Noted Time PHQ-9 Depression Total Score: 0 12/24/19 23 4:13 PM EST documented as of this encounter Care Teams Package Handler Relationship Specialty Start Date End Date Carolina Campbell MD [address] [place] [phone] PCP - General Family Medicine 06/26/22 02/18/25 documented as of this encounter
--- OUTSIDE RECORDS SUMMARY | 2025-09-16 07:18 | XMS_ITS | Clinical Summary ---
Author Organization [facility] Address [address] [place] [address] Care Team Providers Care Cyber Intel Planner Name Role Phone Rosangela Rodriguez MD Primary Care Provider [phone] Allergies No known active allergies Medications pen needle, diabetic (BD Ultra-Fine Wendy Pen Needle) 32 gauge x 5/32 needle 4 (four) times a day. 300 each 3 11/08/20 24 Active ammonium lactate (AmLactin) 12 % lotion Apply topically if needed for dry skin. 400 g 01/25/20 25 2025 Active lisinopril-hy droCHLOROthia zide (PRINZIDE,ZES TORETIC) 20-12.5 mg per tablet Take 1 tablet by mouth 1 (one) time each day in the morning. 90 each 1 03/20/20 25 Active insulin glargine (LANTUS SoloStar) 100 unit/mL (3 mL) injection pen Inject 54 Units under the skin at bedtime. 60 mL 1 03/27/20 25 2024 Active hydroCHLOROth iazide 12.5 mg tablet Take 1 tablet (12.5 mg total) by mouth 1 (one) time each day. 90 each 05/22/20 25 Active atorvastatin (LIPITOR) 40 mg tabletIndicat ions:Hypercho lesteremia Take 1 tablet (40 mg total) by mouth 1 (one) time each day in the morning. 90 each 3 07/14/20 25 2025 Active metFORMIN (GLUCOPHAGE) 1,000 mg tabletIndicat ions:Type 2 diabetes mellitus with hyperglycemia , with long-term current use of insulin ([facility] V24, [facility] V28) Take 1 tablet (1,000 mg total) by mouth 2 (two) times a day with meals. 180 each 07/14/20 25 2024 Active Mounjaro 10 mg/0.5 mL injectionIndi cations:Type 2 diabetes mellitus with hyperglycemia , with long-term current use of insulin ([facility] V24, [facility] V28) INJECT ONE PEN (10 MG TOTAL) SUBCUTANEOUSLY ONCE A WEEK 4 mL 09/15/20 Active tirzepatide (MOUNJARO) 10 mg/0.5 mL injectionIndi cations:Type 2 diabetes mellitus with hyperglycemia , with long-term current use of insulin ([facility] V24, [facility] V28) Inject 0.5 mL (10 mg total) under the skin every 7 (seven) days. 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 Lateral epicondylitis of right elbow 07/07/2023 Acute appendicitis 03/03/2023 Overview (12/08/2024): Added automatically from request for surgery [id number] Diabetes mellitus ([facility] V24, [facility] V28) Obesity 11/13/2011 Pure hypercholesterolemia 11/13/2011 Essential hypertension 11/15/2010 Backache 07/29/2010 Encounters Date Type Department Care Team Description 09/13/2025 9:00 AM EDT Office Visit [address] [address] Rosangela Rodriguez MD Annual physical exam (Primary Dx); Vitamin D deficiency; Overweight; Need for immunization against influenza; Enlarged prostate; Snoring 07/14/2025 8:45 AM EDT Office Visit [address] [address] Rosangela Rodriguez MD Type 2 diabetes mellitus with hyperglycemia, with long-term current use of insulin ([facility] V24, [facility] V28) (Primary Dx); Primary hypertension; Hypercholesteremia; Hypertriglyceridemia; B12 deficiency from Last 3 Months Immunizations Immunization Administration Dates Next Due Hepatitis B (Tdoreie-N-Uzzif , Recombivax HB-Adult) 19yo and older 09/13/2025,09/19/2024 Influenza Quadrivalent, 0.5m l, preservative free (Fluarix; FluLaval; Fluzone) ages 6mo and older (Afluria) 3yo and older 09/09/2024,10/21/2023,09/19/2022 Influenza Split 09/21/2013,09/17/2012 Influenza trivalent, 0.5mL, preservative free (Fluarix; FluLaval; Fluzone) ages 6mo and older (Afluria) 3 years and older 09/13/2025 Pfizer (ages 12 & older) ALIZA S-CoV-2 [...] Arlene Hawley MD; Location: [facility]; Service: Urology; Laterality: N/A; Medical History Medical History Date Comments Diabetes mellitus type II, c ontrolled ([facility] V24, [facility] V28) DX:Diabetes mellitus type I I, controlled ([facility]) Social History Tobacco Use Types [...] for your loved ones. For example, child development director or elderly care for an older adult? [...] Mass Index 27.69 09/13/2025 9:42 AM EDT Plan of Treatment Upcoming Encounters Date Type Department Care Team (Late st Contact Info) Description 10/13/2025 8:45 AM EST Office Visit [address] [address] Rosangela Rodriguez MD [address] [place] [address] 09/13/2026 8:30 AM EDT Office Visit [address] [address] Rosangela Rodriguez MD [address] [place] [phone] Health Maintenance Due Date Last Done Comments Colorectal Cancer Screening: Colonoscopy 1970 Diabetes: Annual Foot Exam 1980 Diabetes: Annual Retina Eye Exam 1980 RSV Immunization Adult Patients (1 - Risk 50-74 years 1-dose series) 2020 Zoster Vaccines (2 of 2) 11/14/2022 09/19/2022 Diabetes: Annual Urine Albumin-Creatinine Ratio (uACR) 09/13/2025 09/13/2024 Hepatitis B Vaccines (3 of 3 - 19+ 3-dose series) 11/08/2025 09/13/2025, 09/19/2024 Diabetes: Blood Sugar Control Test (HGBA1C) 12/30/2025 06/29/2025, 01/16/2025, 09/13/2024, Additional history exists Diabetes: Annual GFR (Glomerular Filtration Rate) 06/29/2026 06/29/2025, 01/16/2025, 09/13/2024, Additional history exists Hypertension/CHF/CAD Annual BMP Blood Test 06/29/2026 06/29/2025, 01/16/2025, 09/13/2024, Additional history exists Social Influencers of Health Screening 09/13/2026 09/13/2025 Cholesterol Screening (Lipid Panel) 06/29/2030 06/29/2025, 01/16/2025, 09/13/2024, Additional history exists DTaP,Tdap,and Td Vaccines (3 - Td or Tdap) 10/21/2033 10/21/2023, 09/21/2013 COVID-19 Vaccine Discontinued 05/31/2022, , 05/06/2021, Additional history exists HIV Screening Completed 07/13/2023 Pneumococcal Vaccine: 50+ Years Completed 09/09/2024, 07/07/2023, 03/11/2012 Hepatitis C Screening Completed 09/13/2024, 024 Depression Screening Completed 09/13/2025 Influenza Vaccine Completed 09/13/2025, , 10/21/2023, Additional history exists HIB Vaccines Aged Out No longer eligi [...] 09/13/2025 9:35 AM EDT Annual physical exam HELICOBACTER PYLORI BREATH TEST Routine 06/29/2025 8:42 AM EDT Type 2 diabetes mellitus with hyperglycemia, with long-term current use of insulin ([facility] V24, [facility] V28) Primary hypertension Hypercholesteremia Hypertriglyceridem ia B12 deficiency HEMOGLOBIN A1C Routine 06/29/2025 8:42 AM EDT Type 2 diabetes mellitus with hyperglycemia, with long-term current use of insulin ([facility] V24, [facility] V28) Primary hypertension Hypercholesteremia Hypertriglyceridem ia B12 deficiency VITAMIN B12 AND FOLATE Routine 8:42 AM EDT Type 2 diabetes mellitus with hyperglycemia, with long-term current use of insulin ([facility] V24, [facility] V28) Primary hypertension Hypercholesteremia Hypertriglyceridem ia B12 deficiency LIPID PANEL Routine 06/29/2025 8:42 AM EDT Type 2 diabetes mellitus with hyperglycemia, with long-term current use of insulin ([facility] V24, [facility] V28) Primary hypertension Hypercholesteremia Hypertriglyceridem ia B12 deficiency COMPREHENSIVE METABOLIC PANEL Routine 06/29/2025 8:42 AM EDT Type 2 diabetes mellitus with hyperglycemia, with long-term current use of insulin ([facility] V24, [facility] V28) Primary hypertension Hypercholesteremia Hypertriglyceridem ia B12 deficiency HM HEPATITIS C SCREENING Routine 09/13/2024 HM URINE ALBUMIN CREATININE RATIO Routine 09/13/2024 HM HIV SCREENING Routine 07/13/2023 from Last 3 Months or Most Recently Relevant to Health Maintenance Results * ECG 12 lead (09/13/2025 9:35 AM EDT) Rosangela Bruce MD - 09/13/2025 9:35 AM EDT NSR no acute ischemic or dynamic changes Rosangela Rodriguez MD ECG ORDERABLES Final Result * Vitamin B12 and folate (06/29/2025 8:42 AM EDT) Pathologist [facility] Vitamin B12 739 200 - 1,100 pg/mL [facility] Folate Serum >24.0 ng/mL [facility] Comment: Reference Range Low: <3.4 Borderline: 3.4-5.4 Normal: >5.4 Blood Venous blood specimen / Unknown 06/29/2025 8:42 AM EDT 06/29/2025 8:48 AM EDT Cristal CrowdGather [facility]) - 06/30/2025 2:10 PM EDT FASTING:YES FASTING: YES Rosangela Rodriguez MD LAB BLOOD ORDERABLES Final R esult [facility] ([facility]) [facility] [address] [place] [phone] * Helicobacter pylori breath test (06/29/2025 8:42 AM EDT) [facility] Helicobacter pylori Breath Test NOT DETECTED NOT DETECTED [facility] Comment: Antimicrobials, proton pump inhibitors, and bismuth preparations are known to suppress H. pylori, and ingestion of these prior to H. pylori diagnostic testing may lead to false negative results. If clinically indicated, the test may be repeated on a new specimen obtained two weeks after discontinuing treatment. However, a positive result is still clinically valid. Breath Oral cavity structure / Unknown 06/29/2025 8:42 AM EDT 06/29/2025 8:48 AM EDT Cristal IFTIKHAR [facility] ([facility]) - 06/30/2025 2:10 PM EDT FASTING:YES FASTING: YES Rosangela Rodriguez MD LAB BODY FLUIDS AND STOOLS O RDERABLES Final Result Performing Organization Address [facility] Co de Phone Number [facility] ([facility]) [facility] [address] [place] [phone] * (ABNORMAL) Hemoglobin A1c (06/29/2025 8:42 AM EDT) Hemoglobin A1C 8.2(H) <5.7 % [facility] Comment: For someone without known diabetes, a [...] A1c for diagnosis of diabetes for children. Blood Venous blood specimen / Unknown 06/29/2025 8:42 AM EDT 06/29/2025 8:48 AM EDT Narrative [facility] ([facility]) - 06/30/2025 2:10 PM EDT FASTING:YES FASTING: YES Rosangela Rodriguez MD LAB BLOOD ORDERABLES Final R esult Performing Organization Address [facility] Co de Phone Number IFTIKHAR CASAS ([facility]) [facility] [address] [place] [address] * (ABNORMAL) Lipid panel (06/29/2025 8:42 AM EDT) Cholesterol Total 227(H) <200 mg/dL [facility] HDL Cholesterol 40 > OR = 40 mg/dL [facility] Triglycerides 194(H) <150 mg/dL [facility] LDL Cholesterol 154(H) mg/dL (calc) [facility] Comment: Reference range: <100 Desirable range <100 mg/dL for primary prevention; <70 mg/dL for patients with CHD or diabetic patients with > or = 2 CHD risk factors. LDL-C is now calculated using the Seth-Sheppard calculation, which is a validated novel method providing better accuracy than the Friedewald equation in the estimation of LDL-C. Seth SS et al. DYLAN. 2013;310(19): 1393-7986 (http://education.[employer]/faq/VBI158) Chol/HDLC Ratio 5.7(H) <5.0 (calc) [facility] Non HDL Cholesterol 187(H) <130 mg/dL (calc) [facility] Comment: For patients with diabetes plus 1 major ASCVD risk factor, treating to a non-HDL-C goal of <100 mg/dL (LDL-C of <70 mg/dL) is considered a therapeutic option. Blood Venous blood specimen / Unknown 06/29/2025 8:42 AM EDT 06/29/2025 8:48 AM EDT Narrative [facility] ([facility]) - 06/30/2025 2:10 PM EDT FASTING:YES FASTING: YES Rosangela Rodriguez MD LAB BLOOD ORDERABLES Final R esult [facility] ([facility]) [facility] [address] [place] [phone] * (ABNORMAL) Comprehensive metabolic panel (06/29/2025 8:42 AM EDT) Glucose 173(H) 65 - 99 mg/dL [facility] Comment: Fasting reference interval For someone without known diabetes, a glucose value >125 mg/dL indicates that they may have diabetes and this should be confirmed with a follow-up test. Urea Nitrogen (BUN) 25 7 - 25 mg/dL [facility] Creatinine 0.90 0.70 - 1.30 mg/dL [facility] eGFR 101 > OR = 60 mL/min/1 .73m2 [facility] BUN/Creatinine Ratio SEE NOTE: 6 - 22 (calc) [facility] Comment: Not Reported: BUN and Creatinine are within reference range. Sodium 132(L) 135 - 146 mmol/L [facility] Potassium 4.8 3.5 - 5.3 mmol/L [facility] Chloride 99 98 - 110 mmol/L [facility] Carbon Dioxide 24 20 - 32 mmol/L [facility] Calcium 9.9 8.6 - 10.3 mg/dL [facility] Total Protein 7.5 6.1 - 8.1 g/dL [facility] Albumin 5.0 3.6 - 5.1 g/dL [facility] Globulin 2.5 1.9 - 3.7 g/dL (calc) [facility] Albumin/Globulin Ratio 2.0 1.0 - 2.5 (calc) [facility] Bilirubin Total 0.7 0.2 - 1.2 mg/dL [facility] Alkaline Phosphatase 93 35 - 144 U/L [facility] Aspartate aminotransferase (AST) 22 10 - 35 U/L [facility] Alanine Aminotransferase (ALT) 29 9 - 46 U/L [facility] Blood Venous blood specimen / Unknown 06/29/2025 8:42 AM EDT 06/29/2025 8:48 AM EDT Cristal [facility]) - 06/30/2025 2:10 PM EDT FASTING:YES FASTING: YES Rosangela Rodriguez MD LAB BLOOD ORDERABLES Final R esult [facility] ([facility]) [employer] [address] [phone] * Urine Albumin Creatinine Ratio (09/13/2024) Urine Albumin Creatinine Ratio Abstracted Historical Provider HEALTH MAINTENANCE Final Result * Hepatitis C Screening (09/13/2024) Hepatitis C Screening Abstracted Historical Provider HEALTH MAINTENANCE Final Result * HIV Screening (07/13/2023) HIV Screening Abstracted us Historical Provider HEALTH MAINTENANCE Final Result from Last 3 Months or Most Recently Relevant to Health Maintenance Insurance [facility] Care Teams Cyber Intel Planner Relationship Specialty Start Date End Date Rosangela Rodriguez MD [address] [address] PCP - General Internal Medicine 12/06/24
--- OUTSIDE RECORDS SUMMARY | 2025-09-16 07:18 | XMS_ITS | Encounter Summary ---
Author Organization [employer] Address [address] [facility] [place] [address] Care Team Providers Care Wrapping Checker Name Role Phone Carolina Campbell MD Primary Care Provider [phone] Reason for Visit * Reason Onset Date Comments Referral 07/08/2024 Encounter Details Date Type Department Care Team ([facility] st Contact Info) Description 07/08/2024 Telephone [facility] MEDICINE [address] [place] [address] Carolina Campbell MD [address] [place] [address] Referral Social History Tobacco Use Types Packs/Day [...] and was advised to return call however marketing copywriter does not see anything noted * Telephone [...] a urology referral, no further details provided. Chinese speaker documented in this encounter Plan of Treatment Not on file documented as of this encounter Visit Diagnoses Not on filedocumented in this encounter Additional Health Concerns Assessment Noted Time PHQ-9 Depression Total Score: 0 12/24/19 23 4:13 PM EST documented as of this encounter Care Teams Wrapping Checker Relationship Specialty Start Date End Date Carolina Campbell MD [address] [place] [phone] PCP - General Family Medicine 06/26/22 02/18/25 documented as of this encounter
--- OUTSIDE RECORDS SUMMARY | 2025-09-16 07:18 | XMS_ITS | Encounter Summary ---
Author Organization [employer] Address [address] [facility] [address] [place] [address] Care Team Providers Care Oyster Grower Name Role Phone Carolina Campbell MD Primary Care Provider [phone] Reason for Visit * Reason Onset Date Comments Med Refill 05/24/2024 Encounter Details Date Type Department Care Team ([facility] Contact Info) Description 05/24/2024 Refill [facility] MED & PEDS [address] [place], [place] [phone] Carolina Campbell MD [address] [place] [address] Essential hypertension; Type 2 diabetes mellitus with hyperglycemia, with long-term current use of insulin ([facility]) Social History Tobacco Use Types Packs/Day Years [...] documented as of this encounter Care Teams Oyster Grower Relationship Specialty Start Date End Date Carolina Campbell MD [address] [place] [address] PCP - General Family Medicine 06/26/22 02/18/25 documented as of this encounter
--- OUTSIDE RECORDS SUMMARY | 2025-09-16 07:18 | XMS_ITS | Clinical Summary ---
Author Organization [facility] Address [address] [place] [address] Care Team Providers Care Business Management Intern Name Role Phone Rosangela Rodriguez MD Primary [...] 85 09/19/2024 10:56 AM EDT Temperature 36.2 C (97.1 F) 09/19/2024 10:56 AM EDT Respiratory Rate 16 09/19/2024 10:56 AM EDT [...] Shingrix-Zoster Vaccine (2 of 2) 11/14/2022 09/19/2022 Hemoglobin A1C Due 03/14/2025 09/13/2024 COVID-19 Vaccine ( season) 2025 05/31/2022, 11/19/2021, 05/06/2021, Additional history exists Influenza Vaccine (#1) 2025 , 10/21/2023, 09/19/2022 Preventative Health Evaluation 09/12/2025 09/12/2024 Diabetes: Microalbumin Test 09/13/2025 09/13/2024 DTap / Tdap / Td (3 - Td or Tdap) 10/21/2033 10/21/2023, 09/21/2013 Pneumococcal Vaccine Completed 09/09/2024, 07/07/2023, 03/11/2012 Hepatitis C Screening Completed 09/13/2024 RSV Ped < 20 months Aged Out No longe r eligible based on patient's age to complete this topic Medical Devices Implanted Type Area Rhythmic Gymnastics Coach Device Identifier Shelf Expiration Date Model / Serial / Lot Prosthesis Ams 700 Accessory Kit Penile - [id number] - [id number] Implanted:Qty: 1 on 08/24/2014 by Arlene Hawley MD [place] [facility] [place] N/A: Penis [employer] 08/01/2019 [id number] / / [id number] Prosthesis Ams 700ms 18cm 12mm Erectile Restorationist Tactile - [id number] - [id number] Implanted:Qty: 1 on 08/24/2014 by Arlene Hawley MD [place] [facility] [place] N/A: Penis [employer] 05/03/2016 [id number] / / [id number] Prosthesis Ams 700ms 65ml [place]en Penile - [id number] - [id number] Implanted:Qty: 1 on 08/24/2014 by Arlene Hawley MD [place] [facility] [place] N/A: Penis [employer] 06/15/2016 [id number] / / [id number] Rear Tip Accordion Repairer Implanted:Qty: 1 on 08/24/2014 by Arlene Hawley MD at [facility] [place] N/A: Penis 04/27/2018 / / [id number] Description:Ref # [id number] Advance Directives For more information, please contact: [phone] Latest Code Status on File Code Status Date Activated Date Inactivated Comments Full Code 08/24/2014 11:18 AM 08/25/2014 9:10 PM This code status was ascertained in the following way: discussion with patient. Care Teams Business Management Intern Relationship Specialty Start Date End Date Rosangela Rodriguez MD PCP - General Internal Medicine 09/12/24
--- OUTSIDE RECORDS SUMMARY | 2025-09-16 07:18 | XMS_ITS ---
Author Name [facility] Organization Unknown History of Medication Use Medication Directions Dispensed Refills Start Date End Date Stat us tirzepatide (MOUNJARO) 10 mg/0.5 mL injection Inject 0.5 mL (10 mg total) under the skin every 7 (seven) days. 07/14/2025 08/14/20 completed tirzepatide (MOUNJARO) 7.5 mg/0.5 mL injection Inject 0.5 mL (7.5 mg total) under the skin every 7 (seven) days. 04/25/2025 06/05/20 25 active insulin glargine (LANTUS SoloStar) 100 unit/mL (3 mL) injection pen Inject 54 Units under the skin at bedtime. 03/27/2025 active tirzepatide (MOUNJARO) 5 mg/0.5 mL injection Inject 0.5 mL (5 mg total) under the skin every 7 (seven) days. 02/13/2025 04/15/20 completed lcrbhem-sakrqKCLHEHDV-vg tracycline (Pylera) 140-125-125 mg per capsule Take 3 capsules by mouth 4 (four) times a day (before meals and nightly) for 14 days. Follow each dose with 8 oz of water. 02/13/2025 02/29/20 25 completed blood-glucose sensor (FreeStyle Kenneth 3 Plus Sensor) device 1 EA every 14 (fourteen) days. Box = Kit = EA 01/25/2025 02/14/20 25 aborted tirzepatide (MOUNJARO) 2.5 mg/0.5 mL injection Inject 0.5 mL (2.5 mg total) under the skin every 7 (seven) days. 01/25/2025 02/14/20 aborted ammonium lactate (AmLactin) 12 % lotion Apply topically if needed for dry skin. 01/25/2025 active hydroCHLOROthiazide 12.5 mg tablet Take 1 tablet (12.5 mg total) by mouth 1 (one) time each day. 01/25/2025 active nyebvd-mmbexpsgw-nyldueg um sulfates (Suprep Bowel Prep Kit) 17.5-3.13-1.6 GM/177ML Solution solution Follow directions provided by physician's office. 12/27/2024 active amoxicillin (AMOXIL) 500 mg capsule Take 2 capsules (1,000 mg total) by mouth every 12 (twelve) hours for 14 days. 12/08/2024 12/23/19 25 active doxycycline (VIBRAMYCIN) 100 mg capsule Take 1 capsule (100 mg total) by mouth 2 (two) times a day for 14 days. Take with at least 8 ounces (large glass) of water, do not lie down for 30 minutes after 12/08/2024 12/23/19 25 active omeprazole (PriLOSEC) [address] capsule Take 1 capsule (20 mg total) by mouth 1 (one) time each day. Do not crush or chew. 12/08/2024 active lisinopril-hydroCHLOROth iazide (PRINZIDE,ZESTORETIC) 20-12.5 mg per tablet Take 1 tablet by mouth 1 (one) time each day in the morning. 11/21/2024 03/20/20 active atorvastatin (LIPITOR) 40 mg tablet Take 1 tablet (40 mg total) by mouth 1 (one) time each day in the morning. 11/21/2024 active pen needle, diabetic (BD Ultra-Fine Wendy Pen Needle) 32 gauge x 5/32 needle 4 (four) times a day. 11/08/2024 active insulin glargine (LANTUS) 100 unit/mL injection Inject 54 Units under the skin. 09/29/2024 active dulaglutide (TRULICITY SUBQ) Inject 0.5 mL under the skin 1 (one) time per week. 09/12/2024 01/25/20 25 aborted freestyle (FreeStyle Lancets) 28 gauge lancets 1 each by Other route 2 times daily. 02/17/2024 active acetaminophen (TYLENOL) 325 MG tablet Take 3 tablets (975 mg total) by mouth 4 times daily (every 6 hours) as needed for mild pain. 03/05/2023 04/05/20 23 active Trulicity 3 MG/0.5ML prefilled pen injection Inject 3 mg under the skin once a week. 02/18/2023 active Trulicity 3 MG/0.5ML prefilled pen injection Inject 3 mg under the skin once a week. 02/18/2023 active Lantus SoloStar 100 UNIT/ML prefilled pen injection Inject 26 Units under the skin every evening. 01/23/2023 active metFORMIN (GLUCOPHAGE) 500 MG tablet Take 2 tablets (1,000 mg total) by mouth 2 (two) times a day with meals. 01/23/2023 active lisinopril (PRINIVIL,ZeSTRIL) 20 MG tablet Take 1 tablet (20 mg total) by mouth daily. 12/25/2022 active atorvastatin (LIPITOR) 40 MG tablet Take 1 tablet (40 mg total) by mouth daily. active glyBURIDE (DIABETA) 2.5 mg tablet Take 1 tablet (2.5 mg total) by mouth. active metFORMIN (GLUCOPHAGE) 1,000 mg tablet Take 1 tablet (1,000 mg total) by mouth. active Problems Problem Status Onset Date Problem Type Date of Resolution Source B12 deficiency active EncounterDiagnosisAct [facility] Type 2 diabetes mellitus with hyperglycemia, with long-term current use of insulin ([facility] [place], [facility] [place]) active EncounterDiagnosisAct CT_[facility]N EMG Hypertriglyceridemia active EncounterDiagnosisA ct [facility] Lateral epicondylitis of right elbow active 8 ProblemAct [facility] Essential hypertension active 2010-10-30 7 ProblemAct [facility] Backache active 2010-07-02 0 ProblemAct [facility] Diabetes mellitus ([facility] [place], [facility] [place]) active 2011-10-30 5 ProblemAct [facility] B12 deficiency active EncounterDiagnosisAct [facility] Diabetes mellitus ([facility] [place], [facility] V28) active 2011-10-30 5 ProblemAct [facility] Acute appendicitis active 4 ProblemAct [facility] Type 2 diabetes mellitus with hyperglycemia, with long-term current use of insulin ([facility] [place], [facility] V28) active EncounterDiagnosisAct [facility] Backache active 2010-07-02 0 ProblemAct [facility] Obesity active 2011-10-30 5 ProblemAct [facility] Lateral epicondylitis of right elbow active 8 ProblemAct [facility] Hypertriglyceridemia active EncounterDiagnosisA ct [facility] Pure hypercholesterolemia active 2011-10-30 5 ProblemAct [facility] Failure of penile implant (CMS/HCC V24) active 2024-07-02 0 ProblemAct [facility] Essential hypertension active 2010-10-30 7 ProblemAct [facility] Immunizations Vaccine Date Source Lot Number Status Hepatitis B (Eowqwpv-R-Dxmzx , Recombivax HB-Adult) 19yo and older 09/19/2024 [facility] complet ed Hepatitis B (Zjfqxyx-J-Siwac , Recombivax HB-Adult) 19yo and older 09/19/2024 [facility] complet ed Influenza Quadrivalent, 0.5m l, preservative free (Fluarix; FluLaval; Fluzone) ages 6mo and older (Afluria) 3yo and older 09/09/2024 [facility] completed Influenza Quadrivalent, 0.5m l, preservative free (Fluarix; FluLaval; Fluzone) ages 6mo and older (Afluria) 3yo and older 09/09/2024 [facility] completed Pneumococcal polysaccharide 23 valent (Pneumovax 23) 2yo and older 09/09/2024 [facility] com pleted Pneumococcal polysaccharide 23 valent (Pneumovax 23) 2yo and older 09/09/2024 [facility] com pleted Influenza Quadrivalent, 0.5m l, preservative free (Fluarix; FluLaval; Fluzone) ages 6mo and older (Afluria) 3yo and older 10/21/2023 [facility] [id number] completed Influenza Quadrivalent, 0.5m l, preservative free (Fluarix; FluLaval; Fluzone) ages 6mo and older (Afluria) 3yo and older 10/21/2023 [facility] C3247 completed Tdap Tetanus diptheria acell ular pertussis (Boostrix; Adacel) 7yo and older 10/21/2023 [facility] [id number] completed Tdap Tetanus diptheria acell ular pertussis (Boostrix; Adacel) 7yo and older 10/21/2023 [facility] 25A2F completed Pneumococcal conjugate 20 va lent (Prevnar 20, PCV 20) 2mo and older 07/07/2023 [facility] [id number] comple danny Pneumococcal conjugate 20 va lent (Prevnar 20, PCV 20) 2mo and older 07/07/2023 [facility] [id number] comple danny Influenza Quadrivalent, 0.5m l, preservative free (Fluarix; FluLaval; Fluzone) ages 6mo and older (Afluria) 3yo and older 09/19/2022 [facility] [id number] completed Influenza Quadrivalent, 0.5m l, preservative free (Fluarix; FluLaval; Fluzone) ages 6mo and older (Afluria) 3yo and older 09/19/2022 [facility] 9PG4D completed Zoster recombinant (Shingrix ) 19yo and older 09/19/2022 [facility] [id number] completed Zoster recombinant (Shingrix ) 19yo and older 09/19/2022 [facility] [id number] completed Pfizer (ages 12 & older) ALIZA S-CoV-2 COVID-19, mRNA, LNP-S, brayan-sucrose, preservative free 05/31/2022 [facility] [id number] completed [employer] (ages 12 & older) ALIZA S-CoV-2 COVID-19, mRNA, LNP-S, brayan-sucrose, preservative free 05/31/2022 [facility] [id number] completed Pfizer (ages 12 & older) ALIZA S-CoV-2 COVID-19, mRNA, LNP-S, brayan-sucrose, preservative free 11/19/2021 [facility] completed Pfizer (ages 12 & older) ALIZA S-CoV-2 COVID-19, mRNA, LNP-S, brayan-sucrose, preservative free 05/06/2021 [facility] completed Pfizer (ages 12 & older) ALIZA S-CoV-2 COVID-19, mRNA, LNP-S, brayan-sucrose, preservative free 05/06/2021 [facility] completed Pfizer (ages 12 & older) ALIZA S-CoV-2 COVID-19, mRNA, LNP-S, brayan-sucrose, preservative free 04/04/2021 [facility] completed Pfizer (ages 12 & older) ALIZA S-CoV-2 COVID-19, mRNA, LNP-S, brayan-sucrose, preservative free 04/04/2021 [facility] completed Influenza Split 09/21/2013 [facility] [id number] completed Influenza Split 09/21/2013 [facility] [id number] completed Tdap Tetanus diptheria acell ular pertussis (Boostrix; Adacel) 7yo and older 09/21/2013 [facility] [id number] completed Tdap Tetanus diptheria acell ular pertussis (Boostrix; Adacel) 7yo and older 09/21/2013 [facility] [id number] completed Influenza Split 09/17/2012 [facility] [id number] completed Pneumococcal polysaccharide 23 valent (Pneumovax 23) 2yo and older 03/11/2012 [facility] 1169AA com pleted Pneumococcal polysaccharide 23 valent (Pneumovax 23) 2yo and older 03/11/2012 [facility] 1169AA com pleted Encounters Encounter Type Encounter Reason Primary Diagnosis Location Date Ambulatory Annual Exam Encounter for ge neral adult medical examination without abnormal findings [facility] 09/13/2025 Ambulatory Follow-up Type 2 diabetes mellitus with hyperglycemia ([facility]24, [facility] V28) [facility] 07/14/2025 Ambulatory Follow-up Type 2 diabetes mellitus with hyperglycemia ([facility], [facility] V28) [facility] 06/05/2025 Ambulatory Gastritis, unspecified, without bleeding Gastritis, unspecified, without bleeding [facility] 02/13/2025 Ambulatory Follow-up Type 2 diabetes mellitus with hyperglycemia [facility] 01/25/2025 Ambulatory Colonoscopy Colonoscopy [facility] 12/27/2024 Ambulatory Gastritis, unspecified, without bleeding Gastritis, unspecified, without bleeding [facility] 12/08/2024 Inpatient Unspecified acut e appendicitis [facility] 03/03/2023 Care Team Organization Name Specialty Phone Email Start Date End Da te [facility] 09/13/2025 [facility]ieta [facility] 12/12/2024 [facility] 12/08/2024 [place] [employer] [facility] Rick Mendieta Primary [facility] 2024 [place] [facility] 03/04/2023 02/15/2025 [place] [facility] 03/03/2023 03/24/2023
--- OUTSIDE RECORDS SUMMARY | 2025-09-16 07:18 | XMS_ITS | Encounter Summary ---
Author Organization [employer] Address [address] [facility] [address] [place] [address] Care Team Providers Care Field Contractor Name Role Phone Carolina Campbell MD Primary Care Provider [phone] Reason for Visit * Reason Comments Med Refill Encounter Details Date Type Department Care Team ([facility] Contact Info) Description 02/17/2024 Refill [facility] [address], [place] [id number] Carolina Campbell MD [address] [place] [address] Type 2 diabetes mellitus with hyperglycemia, with long-term current use of insulin ([facility]) Social History Tobacco Use Types Packs/Day Years [...] documented as of this encounter Care Teams Field Contractor Relationship Specialty Start Date End Date Carolina Campbell MD [address] [place] [id number] PCP - General Family Medicine 06/26/22 02/18/25 documented as of this encounter
[2025-09-16 08:55] LABS: Prostate Specific Antigen 6.60 ng/mL (<0.05-4.0)
== END 2025-09-16 07:15 | disposition home or self-care (01) ==
LOC: HO.LAB 07:14
PROVIDERS: PCP Family Medicine; Visit Provider Urology
DX: E11.69 Type 2 diabetes mellitus with other specified complication (principal); R97.20 Elevated prostate specific antigen [PSA]; N52.1 Erectile dysfunction due to diseases classified elsewhere; Z12.5 Encounter for screening for malignant neoplasm of prostate
CPT/HCPCS: 36415; 84153; 84403

== ENCOUNTER 2025-10-05 08:44 | Outpatient (AMB) | payer OTHER, SELFPAY ==
--- OUTSIDE RECORDS SUMMARY | 2024-09-12 12:38 | XMS_ITS | Encounter Summary ---
Author Organization [facility] Address [address] [place] [address] Care Team Providers Care Packing Clerk Name Role Phone Rosangela Rodriguez MD Primary Care Provider + [phone] Encounter Details Date Type Department Care Team ([facility] st Contact Info) Description 09/12/2024 1:38 PM EDT Hospital Encounter [facility] [address] [address] Rosangela Rodriguez MD [address] [facility] [address] [place] [address] Social History Tobacco Use Types Packs/Day Years Used Date Smoking Tobacco: Never Alcohol Use Standard Drinks/Week Comments No 0 (1 standard drink = 0.6 oz pur e alcohol) Housing Instability Answer Date Recorde d Are you worried that in the next 2 months you may not have stable housing? No 09/13/2025 Food Access & Nutrition Answer Date Rec orded Do you have access to a vari ety of food including fruits and vegetables? Yes 09/13/2025 Health Literacy Answer Date Recorded How often do you need to hav e someone help you when you read instructions, pamphlets, or other written material from your doctor or pharmacy? Never 09/13/2025 Caregiver: How often do you need to have someone help you when you read instructions, pamphlets, or other written material from your doctor or pharmacy? Not on file 09/13/2025 Financial Risk Answer Date Recorded How hard is it for you to pa y for the very basics like food, housing, medical care, and air conditioning / heating? Not asked 09/13/2025 Transportation Answer Date Recorded Has the lack of transportati on kept you from meetings, work, or from getting things needed for daily living? No Has the lack of transportati on kept you from medical appointments or from getting medications? No 09/13/2025 Social Isolation Answer Date Recorded How often do you feel lonely or isolated from th ose around you? Never 09/13/2025 Food Risk Answer Date Recorded Within the past 12 months we worried whether our food would run out before we got money to buy more. Never true 09/13/2025 Within the past 12 months th e food we bought just didn't last and we didn't have money to get more. Never true 09/13/2025 Dependent Care Answer Date Recorded Do you need help finding or paying for care for your loved ones. For example, children's literature professor or elderly care for an older adult? No 09/13/2025 Education Answer Date Recorded Do you think completing more education or training, like finishing a GED, going to college, or learning a trade, would be helpful for you? N/A 09/13/2025 Employment and Income Answer Date Recor ded During the last four weeks, have you been actively looking for work? No 09/13/2025 Living Situation Answer Date Recorded What is your living situation? Unrecognized valu e 09/13/2025 Sex and Gender Information Value Date Recorded Sex Assigned at Not on file Legal Sex Male 10:06 AM EST Gender Identity Not on file Sexual Orientation Not on file documented as of this encounter Last Filed Vital Signs Vital Sign Reading Time Taken Comments Blood Pressure - - Pulse 78 09/12/2024 2:06 PM EDT Temperature - - Respiratory Rate - - Oxygen Saturation - - Inhaled Oxygen Concentration - - Weight 88.5 kg (195 lb) 09/12/2024 2:06 PM EDT Height 174 cm (5' 8.5 ) 09/12/2024 2:06 PM EDT Body Mass Index 29.22 09/12/2024 2:06 PM EDT documented in this encounter Plan of Treatment Upcoming Encounters Date Type Department Care Team (Late st Contact Info) Description 10/13/2025 8:45 AM EST Office Visit [facility] [address] [facility] [address] [place] [address] Rosangela Rodriguez MD [address] [address] 09/13/2026 8:30 AM EDT Office Visit [facility] [address] [address] Rosangela Rodriguez MD [address] [address] documented as of this encounter Visit Diagnoses Not on filedocumented in this encounter Care Teams Packing Clerk Relationship Specialty Start Date End Date Rosangela Rodriguez MD PCP - General 09/12/24 09/12/24 documented as of this encounter
--- OUTSIDE RECORDS SUMMARY | 2024-09-19 09:00 | XMS_ITS | Encounter Summary ---
Author Organization [facility] Address [address] [place] [address] Care Team Providers Care Associate Professor Of Chemistry Name Role Phone Rosangela Rodriguez MD Primary Care Provider + [phone] Encounter Details Date Type Department Care Team ([facility] st Contact Info) Description 09/19/2024 10:00 AM EDT Hospital Encounter [facility] [address] [address] Rosangela Rodriguez MD [address] [facility] [address] [place] [address] Social History Tobacco Use Types [...] for your loved ones. For example, child and adolescent psychiatrist or elderly care for an older adult? [...] Sign Reading Time Taken Comments Blood Pressure 140/80 09/19/2024 10:56 AM EDT Pulse 85 09/19/2024 10:56 AM EDT Temperature - - Respiratory Rate - - Oxygen Saturation - - Inhaled Oxygen Concentration - - Weight 89 kg (196 lb 1.6 oz) 09/19/2024 10:56 AM EDT Height 174 cm (5' 8.5 ) 09/19/2024 10:56 AM EDT Body Mass Index 29.38 09/19/2024 10:56 AM EDT documented in this encounter Plan of Treatment Upcoming Encounters Date Type Department Care Team (Late st Contact Info) Description 10/13/2025 8:45 AM EST Office Visit [facility] [address] [address] Rosangela Rodriguez MD [address] [address] 09/13/2026 8:30 AM EDT [facility] [address] [address] Rosangela Rodriguez MD [facility] [address] [address] documented as of this encounter Visit Diagnoses Not on filedocumented in this encounter Care Teams Associate Professor Of Chemistry Relationship Specialty Start Date End Date Rosangela Rodriguez MD PCP - General 09/13/24 12/05/24 documented as of this encounter
--- NOTE | 2025-10-05 08:52 | A.OFFVIS_ITS ---
Intake Visit Reasons: 6m follow up Intake Note: Patient is present for 6mo follow up Urology Medication:NONE Antibiotic Allergy:NONE Blood Thinner:NONE Labs done 09/16/25: PSA 6.60, Total testosterone [address] Measurer Required: No Accompanied by: Spouse Allergies No Known Allergies Allergy (Verified 10/05/25 08:54) HPI Comments Details: Osmin is a pleasant male. He is a patient of Dr. Campbell. He is seen for following urologic issues - elevated PSA - penile prosthetic malfunction Persistently elevated PSA Borderline testosterone for 55-year-old Needs full testosterone panel Discussed potential prostate biopsy PSA has remained elevated for six-month with minimal change We will check in six-month Has been taking prostate supplement for prostatitis Had interest in vasectomy reversal Vasectomy performed over 15 years ago Discussed likelihood of success At this point will go visit worship leader to discuss IVF with extraction Erectile dysfunction Penile prosthetic replacement Elevated PSA PSA 09/22 - 6.2, 09/23 6.6 May benefit from prostate biopsy PFSH Medical History Diabetes mellitus HTN (hypertension) HLD (hyperlipidemia) Surgical History History of penile implant Social History Alcohol intake: former Patient Tobacco Use Status: Never used Tobacco Review of Systems Const Denies chills and Denies fever(s) Card Reports no additional complaints and Denies syncope Resp Denies cough GI Denies abdominal pain and Denies heartburn Reports as per HPI and Denies change in libido Neuro Denies syncope Psych Denies change in libido Endo Denies change in libido Physical Exam Const General: cooperative, healthy appearing, comfortable and no acute distress Orientation/consciousness: patient oriented x3 HEENT Face and sinus: Yes normal facial exam Mouth: moist mucous membranes Neck Neck: Yes normal visual inspection, Yes full ROM and Yes trachea midline Chest Chest palpation & inspection: normal inspection of the chest Resp Effort & Inspection: normal respiratory effort, able to speak in complete sentences and no respiratory distress GI Inspection: Yes normal to inspection Back/Spine/Pelvis Cervical Spine: normal cervical lordosis Thoracic/Lumbar Spine: thoracic and lumbar spine normal to inspection Skin General skin exam: no rashes or lesions noted Neuro General: patient oriented x3, gait normal, tone normal and moves all extremities Extrem General: Yes normal to inspection and Yes capillary refill normal Assessment & Plan Assessment & Plan (1) Erectile dysfunction associated with type 2 diabetes mellitus: Code(s): E11.69 - Type 2 diabetes mellitus with other specified complication; N52.1 - Erectile dysfunction due to diseases classified elsewhere Category: Medical (2) Elevated PSA: Code(s): R97.20 - Elevated prostate specific antigen [PSA] Category: Medical (3) Low testosterone in male: Code(s): R79.89 - Other specified abnormal findings of blood chemistry Category: Medical Plan Six-month follow-up lab work Orders: Orders Testosterone, Free/Total 5 Months R97.20 - Elevated prostate specific antigen [PSA] Lutenizing Hormone 5 Months R97.20 - Elevated prostate specific antigen [PSA] Estrad Free (Tot Ultra + Free) 5 Months R97.20 - Elevated prostate specific antigen [PSA] Prostate Specific Antigen 5 Months R97.20 - Elevated prostate specific antigen [PSA] Patient Instructions: This note is constructed using voice recognition software. While every effort has been made to ensure accuracy hearing therapy teacher errors may have been included. Imaging studies, laboratory and physical exam results were discussed and reviewed in detail. No major barriers to patient understanding were identified. An opportunity to ask questions regarding the treatment plan was provided. All questions were answered. The patient expressed understanding and agreement with the above treatment plan. The patient is aware they should contact our office by phone for worsening of their current condition or the appearance of new urologic symptoms. Compliance is encouraged with any medications and followup testing that is ordered. It is a privilege to participate in the urologic care of your patient. If you have any questions or concerns regarding treatment for the above conditions, or other urologic issues, please do not hesitate to contact me. The office telephone contact is [phone]. Sincerely, Dr Hollis Harris MD, MONIKA [facility] - Urology Compassionate Specialist Care for the Genitourinary System Coding Level of Care Code Est Pt Level 3 (29107) Complex EM visit Add On G2211 Diagnoses Erectile dysfunction associated with type 2 diabetes mellitus E11.69; N52.1 Elevated PSA R97.20 Low testosterone in male R79.89
--- OUTSIDE RECORDS SUMMARY | 2025-10-05 09:16 | XMS_ITS | Encounter Summary ---
Author Organization [employer] Address [address] [facility] [address] [place] [address] Care Team Providers Care [employer] Professional Name Role Phone Carolina Campbell MD Primary Care Provider [phone] Reason for Visit * Reason Onset Date Comments Referral 07/08/2024 Encounter Details Date Type Department Care Team ([facility] st Contact Info) Description 07/08/2024 Telephone [facility] MED[facility] [address] [place] [address] Carolina Campbell MD [address] [place] [address] Referral Social History Tobacco Use Types Packs/Day [...] and was advised to return call however senior grant writer does not see anything noted * [...] a urology referral, no further details provided. Georgian speaker documented in this encounter Plan of Treatment Not on file documented as of this encounter Visit Diagnoses Not on filedocumented in this encounter Additional Health Concerns Assessment Noted Time PHQ-9 Depression Total Score: 0 12/24/19 23 4:13 PM EST documented as of this encounter Care Teams [employer] Professional Relationship Specialty Start Date End Date Carolina Campbell MD [address] [place] [id number] PCP - General Family Medicine 06/26/22 02/18/25 documented as of this encounter
--- OUTSIDE RECORDS SUMMARY | 2025-10-05 09:16 | XMS_ITS | Clinical Summary ---
Author Organization [facility] Address [address] [place] [address] Care Team Providers Care Lap Cutter Truer Operator Name Role Phone Rosangela Rodriguez MD Primary [...] this topic Medical Devices Implanted Type Area Concrete Saw Operator Device Identifier Shelf Expiration Date Model / Serial / Lot Prosthesis Ams 700 Accessory Kit Penile - [id number] - [id number] Implanted:Qty: 1 on 08/24/2014 by Arlene Hawley MD at [facility] and Med N/A: Penis [employer] 08/01/2019 [id number] / / [id number] Prosthesis Ams 700ms 18cm 12mm Erectile [employer] Tactile - [id number] - [id number] Implanted:Qty: 1 on 08/24/2014 by Arlene Hawley MD at [facility] [place] and Med N/A: Penis [employer] 05/03/2016 [id number] / / [id number] Prosthesis Ams 700ms 65ml [place] Penile - [id number] - [id number] Implanted:Qty: 1 on 08/24/2014 by Arlene Hawley MD at [facility] [place] and Med N/A: Penis [employer] 06/15/2016 [id number] / / [id number] Rear Tip Galvanometer Assembler Implanted:Qty: 1 on 08/24/2014 by Arlene Hawley MD at [facility] and Med N/A: Penis 04/27/2018 / / [id number] Description:Ref # [id number] Advance Directives For more information, please contact: [phone] Latest Code Status on File Code Status Date Activated Date Inactivated Comments Full Code 08/24/2014 11:18 AM 08/25/2014 9:10 PM This code status was ascertained in the following way: discussion with patient. Care Teams Lap Cutter Truer Operator Relationship Specialty Start Date End Date Rosangela Rodriguez MD PCP - General Internal Medicine 09/12/24
--- OUTSIDE RECORDS SUMMARY | 2025-10-05 09:16 | XMS_ITS | Clinical Summary ---
Author Organization [facility] Address [address] [place] [address] Care Team Providers Care Quality Assurance Name Role Phone Rosangela oRdriguez MD Primary Care Provider [phone] Allergies No known active allergies Medications pen [...] at bedtime. 60 mL 1 03/27/20 25 Active hydroCHLOROth iazide 12.5 mg tablet Take [...] , with long-term current use of insulin ([facility] V24, [facility] V28) Take 1 tablet (1,000 mg total) by mouth 2 (two) times a day with meals. 180 each 07/14/20 25 2024 Active Mounjaro 10 mg/0.5 mL injectionIndi cations:Type 2 diabetes mellitus with hyperglycemia , with long-term current use of insulin ([facility] V24, [facility] V28) INJECT ONE PEN (10 MG TOTAL) SUBCUTANEOUSLY ONCE A WEEK 4 mL 09/15/20 Active tirzepatide (MOUNJARO) 10 mg/0.5 mL injectionIndi cations:Type 2 diabetes mellitus with hyperglycemia , with long-term current use of insulin ([facility] V24, [facility] V28) Inject 0.5 mL (10 mg total) under the skin every 7 (seven) days. 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/20 24 Lateral epicondylitis of right elbow 07/07/2023 Acute appendicitis 03/03/2023 Overview (12/08/2024): Added automatically from request for surgery [id number] Diabetes mellitus ([facility] V24, [facility] V28) Obesity 11/13/2011 Pure hypercholesterolemia 11/13/2011 Essential hypertension 11/15/2010 Backache 07/29/2010 Encounters Date Type Department Care Team Description 09/13/2025 9:00 AM EDT Office Visit [address] [address] Rosangela Rodriguez MD Annual physical exam (Primary Dx); Vitamin D deficiency; Overweight; Need for immunization against influenza; Enlarged prostate; Snoring 07/14/2025 8:45 AM EDT Office Visit [address] [address] Rosangela Rodriguez MD Type 2 diabetes mellitus with hyperglycemia, with long-term current use of insulin ([facility] V24, [facility] V28) (Primary Dx); Primary hypertension; Hypercholesteremia; Hypertriglyceridemia; B12 deficiency from Last 3 Months Immunizations Immunization Administration Dates Next Due Hepatitis B (Bcnqmuc-K-Ukpjk , Recombivax HB-Adult) 19yo and older 09/13/2025,09/19/2024 Influenza Quadrivalent, 0.5m l, preservative free (Fluarix; FluLaval; Fluzone) ages 6mo and older (Afluria) 3yo and older 09/09/2024,10/21/2023,09/19/2022 Influenza Split 09/21/2013,09/17/2012 Influenza trivalent, 0.5mL, preservative free (Fluarix; FluLaval; Fluzone) ages 6mo and older (Afluria) 3 years and older 09/13/2025 [employer] (ages 12 & older) ALIZA S-CoV-2 COVID-19, [...] Hawley MD; Location: [facility] MAIN OPERATING ROOM; Service: Urology; Laterality: N/A; Medical History Medical History Date Comments Diabetes mellitus type II, c ontrolled ([facility] V24, [facility] V28) DX:Diabetes mellitus type I I, controlled ([facility]) Social History Tobacco Use [...] for your loved ones. For example, child therapist or elderly care for an older adult? [...] Description 10/13/2025 8:45 AM EST Office Visit [address] [address] Rosangela Rodriguez MD [address] [place] [phone] 09/13/2026 8:30 AM EDT Office Visit [address] [address] Rosangela Rodriguez MD [address] [place] [address] Health Maintenance Due Date Last Done Comments Diabetes: Annual Foot Exam 1980 Diabetes: Annual Retina Eye Exam 1980 RSV Immunization Adult Patients (1 - Risk 50-74 years 1-dose series) 2020 Zoster Vaccines (2 of 2) 11/14/2022 09/19/2022 Colorectal Cancer Screening: Stool Based Tests (FOBT/FIT) 12/29/2023 Diabetes: Annual Urine Albumin-Creatinine Ratio (uACR) 09/13/2025 [...] 09/13/2025 9:35 AM EDT Annual physical exam COMPREHENSIVE METABOLIC PANEL Routine 06/29/2025 8:42 AM EDT Type 2 diabetes mellitus with hyperglycemia, with long-term current use of insulin ([facility] V24, [facility] V28) Primary hypertension Hypercholesteremia Hypertriglyceridem ia B12 deficiency HEMOGLOBIN A1C Routine 06/29/2025 8:42 AM EDT Type 2 diabetes mellitus with hyperglycemia, with long-term current use of insulin ([facility] V24, [facility] V28) Primary hypertension Hypercholesteremia Hypertriglyceridem ia B12 deficiency LIPID PANEL Routine 06/29/2025 8:42 AM EDT Type 2 diabetes mellitus with hyperglycemia, with long-term current use of insulin ([facility] V24, [facility] V28) Primary hypertension Hypercholesteremia Hypertriglyceridem ia B12 deficiency HEPATITIS C SCREENING Routine 09/13/2024 URINE ALBUMIN CREATININE RATIO Routine 09/13/2024 HIV SCREENING Routine 07/13/2023 from Last 3 Months or Most Recently Relevant to Health Maintenance Results * ECG 12 lead (09/13/2025 9:35 AM EDT) Narrative Rosangela Rodriguez MD - 09/13/2025 9:35 AM EDT NSR no acute ischemic or dynamic changes Rosangela Rodriguez MD ECG ORDERABLES Final Result * (ABNORMAL) Hemoglobin A1c (06/29/2025 8:42 AM EDT) Hemoglobin A1C 8.2(H) <5.7 % gokit-gokit Comment: For someone without known diabetes, a [...] AM EDT 06/29/2025 8:48 AM EDT Narrative [facility] ([facility]) - 06/30/2025 2:10 PM EDT FASTING:YES FASTING: YES Rosangela Rodriguez MD LAB BLOOD ORDERABLES Final R esult [facility] ([facility]) [facility] [address] [place] [phone] * (ABNORMAL) Lipid panel (06/29/2025 8:42 AM EDT) [facility] Cholesterol Total 227(H) <200 mg/dL [facility] HDL Cholesterol 40 > OR = 40 mg/dL [facility] Triglycerides 194(H) <150 mg/dL [facility] LDL Cholesterol 154(H) mg/dL (calc) [facility] Comment: Reference range: <100 Desirable range <100 mg/dL for primary prevention; <70 mg/dL for patients with CHD or diabetic patients with > or = 2 CHD risk factors. LDL-C is now calculated using the Seth-Sheppard calculation, which is a validated novel method providing better accuracy than the Friedewald equation in the estimation of LDL-C. Seth SS et al. DYLAN. 2013;310(19): 4200-2875 (http://education.Road Hero/faq/FOM397) Chol/HDLC Ratio 5.7(H) <5.0 (calc) [facility] Non HDL Cholesterol 187(H) <130 mg/dL (calc) [facility] Comment: For patients with diabetes plus 1 major ASCVD risk factor, treating to a non-HDL-C goal of <100 mg/dL (LDL-C of <70 mg/dL) is considered a therapeutic option. Blood Venous blood specimen / Unknown 06/29/2025 8:42 AM EDT 06/29/2025 8:48 AM EDT Narrative [facility] ([facility]) - 06/30/2025 2:10 PM EDT FASTING:YES FASTING: YES Rosangela Rodriguez MD LAB BLOOD ORDERABLES Final R esult [facility] ([facility]) [facility] [address] [place] [phone] * (ABNORMAL) Comprehensive metabolic panel (06/29/2025 8:42 AM EDT) Glucose 173(H) 65 - 99 mg/dL [facility] Comment: Fasting reference interval For someone without known diabetes, a glucose value >125 mg/dL indicates that they may have diabetes and this should be confirmed with a follow-up test. Urea Nitrogen (BUN) 25 7 - 25 mg/dL [facility] Creatinine 0.90 0.70 - 1.30 mg/dL [facility] eGFR 101 > OR = 60 mL/min/1 .73m2 [facility] BUN/Creatinine Ratio SEE NOTE: 6 - 22 (calc) [facility] Comment: Not Reported: BUN and Creatinine are within reference range. Sodium 132(L) 135 - 146 mmol/L [facility] Potassium 4.8 3.5 - 5.3 mmol/L [facility] Chloride 99 98 - 110 mmol/L [facility] Carbon Dioxide 24 20 - 32 mmol/L [facility] Calcium 9.9 8.6 - 10.3 mg/dL [facility] Total Protein 7.5 6.1 - 8.1 g/dL [facility] Albumin 5.0 3.6 - 5.1 g/dL [facility] Globulin 2.5 1.9 - 3.7 g/dL (calc) [facility] Albumin/Globulin Ratio 2.0 1.0 - 2.5 (calc) [facility] Bilirubin Total 0.7 0.2 - 1.2 mg/dL [facility] Alkaline Phosphatase 93 35 - 144 U/L [facility] Aspartate aminotransferase (AST) 22 10 - 35 U/L [facility] Alanine Aminotransferase (ALT) 29 9 - 46 U/L [facility] Blood Venous blood specimen / Unknown 06/29/2025 8:42 AM EDT 06/29/2025 8:48 AM EDT Narrative [facility] ([facility]) - 06/30/2025 2:10 PM EDT FASTING:YES FASTING: YES Result [facility] Rosangela Rodriguez MD LAB BLOOD ORDERABLES Final R esult [facility] ([facility]) [facility] [address] [place] [phone] * Urine Albumin Creatinine Ratio (09/13/2024) Urine Albumin Creatinine Ratio Abstracted Result [facility] Provider HEALTH MAINTENANCE Final Result * Hepatitis C Screening (09/13/2024) Pathologist [facility] Hepatitis C Screening Abstracted Result [facility] Provider HEALTH MAINTENANCE Final Result * HIV Screening (07/13/2023) Pathologist [facility] HIV Screening Abstracted Result [facility] Historical Provider HEALTH MAINTENANCE Final Result from Last 3 Months or Most Recently Relevant to Health Maintenance Insurance [facility] Care Teams Quality Assurance Relationship Specialty Start Date End Date Rosangela Rodriguez MD [address] [address] PCP - General Internal Medicine 12/06/24
--- OUTSIDE RECORDS SUMMARY | 2025-10-05 09:16 | XMS_ITS | Encounter Summary ---
Author Organization [employer] Address [address] [place] [address] Care Team Providers Care Driller Multiple Spindle Name Role Phone Carolina Campbell MD Primary Care Provider [phone] Reason for Visit * Reason Comments Med Refill Encounter Details Date Type Department Care Team ([facility] Contact Info) Description 09/16/2024 Refill [facility] CHC MED & PEDS [address] [place], [place] [phone] Carolina Campbell MD [address] [place] [address] Type 2 diabetes mellitus without complication, with long-term current use of insulin ([facility]) Social History Tobacco Use Types Packs/Day [...] documented as of this encounter Care Teams Driller Multiple Spindle Relationship Specialty Start Date End Date Carolina Campbell MD [address] [place] [phone] PCP - General Family Medicine 06/26/22 02/18/25 documented as of this encounter
--- OUTSIDE RECORDS SUMMARY | 2025-10-05 09:16 | XMS_ITS | Clinical Summary ---
Author Organization [facility] Address [address] [place] [phone] Care Team Providers Care Merry Go Round Attendant Name Role Phone Rosangela Rodriguez MD Primary [...] Bowel Prep Kit) 17.5-3.13-1.6 GM/177ML Solution solutionIndicatio ns:Dyspepsia,Drake n cancer screening Follow directions provided by physician's office. 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
--- OUTSIDE RECORDS SUMMARY | 2025-10-05 09:16 | XMS_ITS | Encounter Summary ---
Author Organization [employer] Address [address]t [place] [address] Care Team Providers Care Hooker On Name Role Phone Carolina Campbell MD Primary Care Provider Encounter Details Date Type Department Care Team ([facility] Contact Info) Description 04/29/2023 [facility] Information Management [address] [place] [address] Carolina Campbell MD [address] [place], [place] [phone] Social History Tobacco Use Types Packs/Day Years [...] documented as of this encounter Care Teams Hooker On Relationship Specialty Start Date End Date Carolina Campbell MD [address] [place] [address] PCP - General Family Medicine 06/26/22 02/18/25 documented as of this encounter
--- OUTSIDE RECORDS SUMMARY | 2025-10-05 09:16 | XMS_ITS | Encounter Summary ---
Author Organization [employer] Address [address] [place] [address] Care Team Providers Care Tank Wagon Driver Name Role Phone Carolina Campbell MD Primary Care Provider [phone] Reason for Visit * Reason Onset Date Comments Med Refill 05/24/2024 Encounter Details Date Type Department Care Team ([facility] Contact Info) Description 05/24/2024 Refill [facility] CH[facility] MED & PEDS [address] [place], [place] [phone] Carolina Campbell MD [address] [place] [address] Essential hypertension; Type 2 diabetes mellitus with hyperglycemia, with long-term current use of insulin ([facility]) Social History Tobacco Use Types Packs/Day [...] documented as of this encounter Care Teams Tank Wagon Driver Relationship Specialty Start Date End Date Carolina Campbell MD [address] [place] [address] PCP - General Family Medicine 06/26/22 02/18/25 documented as of this encounter
--- OUTSIDE RECORDS SUMMARY | 2025-10-05 09:16 | XMS_ITS | Encounter Summary ---
Author Organization [employer] Address [address] [place] [address] Care Team Providers Care Instructional Services Specialist Name Role Phone Carolina Campbell MD Primary Care Provider [phone] Reason for Visit * Reason Comments Med Refill Encounter Details Date Type Department Care Team ([facility] Contact Info) Description 02/17/2024 Refill [facility] CHC MED & PEDS [address] [place], [place] [phone] Carolina Campbell MD [address] [place] [address] Type 2 diabetes mellitus with hyperglycemia, with long-term current use of insulin ([facility]) Social History Tobacco Use Types Packs/Day [...] as of this encounter Care Teams Instructional Services Specialist Relationship Specialty Start Date End Date Carolina Campbell MD [address] [place] [phone] PCP - General Family Medicine 06/26/22 02/18/25 documented as of this encounter
--- OUTSIDE RECORDS SUMMARY | 2025-10-05 09:16 | XMS_ITS | Clinical Summary ---
Author Organization [employer] Address [address] [place] [address] Care Team Providers Care Group Director Name Role Phone Unavailable Primary Care Provider [...] hyperglycemia, with long-term current use of insulin ([facility]) Inject 54 Units under the skin at bedtime. 45 mL 3 4 Active Dulaglutide (Trulicity) 1.5 MG/0.5ML solution auto-injectorIndi cations:Type 2 diabetes mellitus without complication, with long-term current use of insulin ([facility]) Inject 1.5 mg under the skin 1 [...] (07/07/2023): Added automatically from request for surgery [id number] Diabetes mellitus 11/13/2011 Assessment & Plan (06/27/2024 [...] 5:00 PM EST): Pt reports unable to pickle sorter rx given not available in [facility], called [facility] pharmacy they have availability hence will send [...] Encounters Date Type Department Care Team Description 09/16/2025 Orders Only GENERIC EXTERNAL DATA DEPARTMENT Provider, Generic External Data from Last 3 Months Immunizations Immunization Administration Dates Next Due Influenza [...] exists Influenza Vaccine (#1) 2025 , 10/21/2023, 09/19/2022, Additional history exists Diabetes: Hemoglobin [...] Procedure Name Priority Date/Time Associated Diagnosis Comments TESTOSTERONE, TOTAL, MALES (ADULT), IA Routine 09/16/2025 7:46 AM EDT PSA, TOTAL Routine 09/16/2025 7:46 AM EDT POCT GLYCATED HEMOGLOBIN, TOTAL Routine 06/27/2024 4:40 PM EDT Type 2 diabetes mellitus without complication, with long-term current use of insulin (CMS/HCC) ALBUMIN, RANDOM URINE W/CREATININE Routine 07/13/2023 8:38 AM EDT Type 2 diabetes mellitus with hyperglycemia, with long-term current use of insulin (CMS/HCC) HEPATITIS C ANTIBODY Routine 07/13/2023 8:34 AM EDT Encounter for health-related screening HIV ANTIBODY/ANTIGEN ([facility]) Routine 07/13/2023 8:34 AM EDT Type 2 diabetes mellitus with hyperglycemia, with long-term current use of insulin (CMS/HCC) LIPID PANEL, STANDARD Routine 07/13/2023 8:34 AM EDT Type 2 diabetes mellitus with hyperglycemia, with long-term current use of insulin (CMS/HCC) from Last 3 Months or Most Recently Relevant to Health Maintenance Results * Testosterone, Total, males (Adult), IA (09/16/2025 7:46 AM EDT) [facility] Testosterone, Total 351 250 - 1100 ng/dL [facility] Comment:For additional infor allyson, please refer tohttp://education.SmartShoot.[employer]ters/faq/VxtgyWczbarbdalsnMTRSSJNDF431(This link is being provided for informational/educational purposes only.)This test was developed and its analytical performancecharacteristics have been determined by [facility] [place], [place]. It hasnot been cleared or approved by the U.S. Food and DrugAdministration. This assay has been validated pursuantto the CLIA regulations and is used for clinicalpurposes.THIS TEST WAS PERFORMED AT:[id number] [place] [address]RWWCGMYKIMBERLY RATLIFF MD,PHD 09/16/2025 7:46 AM EDT 09/16/2025 7:46 AM EDT us Generic External Data Provider LAB BLOOD ORDERAB LES Final Result Performing Organization Address City/[facility]/ZIP Co de Phone Number [facility] [address] [place] [phone] * (ABNORMAL) PSA,Total (09/16/2025 7:46 AM EDT) Prostate Specific Antigen 6.60(H) <0.05 - 4.0 ng/mL [facility] Comment:PSA methodology: Christie Diehl i ChemiluminescentMicroparticle Immunoassay (CMIA) 09/16/2025 7:46 AM EDT 09/16/2025 7:46 AM EDT us Generic External Data Provider LAB BLOOD ORDERAB LES Final Result Performing Organization Address City/[facility] Co de Phone Number [facility] [address] [place] [phone] * (ABNORMAL) POCT HGB A1C (06/27/2024 4:40 PM EDT) Hemoglobin A1C 8.3(A) 4.0 - 6.0 % QC Media Lot # [id number] Lot# Expiration Date ,905,600 Blood 06/27/2024 4:40 PM EDT us Carolina Campbell MD POINT OF CARE TEST ENTER/EDIT ORDERABLES Final Result * Albumin, Random Urine W/Creatinine (07/13/2023 8:38 AM EDT) Creatinine, Urine 196.58 mg/dL [facility] Microalbumin Urine 87.0 mg/L [facility] Microalbum Creatinine Ratio Ur 44.2 ug/mg cr [facility] Comment:Albumin/Creatinine R atio Reference Ranges: Normal: < 30 ug/mg creatinine Microalbuminuria: 30 - 300 ug/mg creatinineClinical Albuminuria: > 300 ug/mg creatinine 07/13/2023 8:38 AM EDT 07/13/2023 2:37 PM EDT Carolina Campbell MD LAB URINE ORDERABLES Final Re sult Performing Organization Address [facility] Co de Phone Number [facility] [address] [place] [phone] * Hepatitis C Ab (07/13/2023 8:34 AM EDT) Hepatitis C Antibody Nonreactive Nonreactive [facility] Comment:Antibodies to HCV no t detected; does not exclude early acuteHCV infection. Blood 07/13/2023 8:34 AM EDT 07/13/2023 2:25 PM EDT Carolina Campbell MD LAB BLOOD ORDERABLES Final Re sult Performing Organization Address [facility] de Phone Number [facility] [address] [place] [phone] * HIV Ab/Ag ([facility]) (07/13/2023 8:34 AM EDT) HIV AB/AG Nonreactive Nonreactive [facility] Comment:HIV-1 p24 Ag and/or HIV-1/HIV-2 Ab not detected.A test result that is nonreactive does not exclude thepossibility of exposure to or infection with HIV-1 and/orHIV-2. Nonreactive results in this assay for individualswith prior exposure to HIV-1 and/or HIV-2 may be due toantigen and antibody levels that are below the limit ofdetection of this assay.The [employer] HIV Ag/Ab Combo assay result andsupplemental assay results should be interpreted inconjunction with the patient's clinical presentation,history and other laboratory results. If the results areinconsistent with clinical evidence, additional testing issuggested to confirm the result. 07/13/2023 8:34 AM EDT 07/13/2023 2:25 PM EDT us Carolina Campbell MD LAB BLOOD ORDERABLES Final Re sult Performing Organization Address City/[facility]/ZIP Co de Phone Number [facility] [address] [place] [phone] * Lipid Panel, Standard (07/13/2023 8:34 AM EDT) Triglycerides 50 mg/dL [facility] Comment:Desirable Triglyceri de: less than 150 mg/dLBorderline High Triglyceride 150-199 mg/dLHigh Triglyceride: 200-499 mg/dLVery High Triglyceride: greater than or equal to 5OO mg/dL Cholesterol 100 mg/dL [facility] Comment:Desirable Cholestero l: less than 200 mg/dLBorderline High Cholesterol: 200-239 mg/dLHigh Cholesterol: greater than 239 mg/dL LDL Cholesterol Calculated 57 mg/dl [facility] Comment:Desirable LDL: less than 100 mg/dLNear Optimal/Above Optimal LDL: 110- 129 mg/dLBorderline High LDL: 130-159 mg/dLHigh LDL: 160-189 mg/dLVery High LDL: greater than or equal to 190 mg/dL HDL Cholesterol 33 mg/dL [facility] Comment:Desirable HDL: great er than 40 mg/dL Note: This HDL assay may give artificially low results in patients with liver disease. Blood Venous blood specimen / Unknown 07/13/2023 8:34 AM EDT 07/13/2023 2:25 PM EDT us Carolina Campbell MD LAB BLOOD ORDERABLES Final Re sult [facility] [address] [place] [phone] from Last 3 Months or Most Recently Relevant to Health Maintenance Insurance , [address] [address]
== END 2025-10-05 09:20 | disposition home or self-care (01) ==
LOC: HO.HUSH 08:45
PROVIDERS: PCP Family Medicine; Visit Provider Urology
DX: E11.69 Type 2 diabetes mellitus with other specified complication (principal); N52.1 Erectile dysfunction due to diseases classified elsewhere; R97.20 Elevated prostate specific antigen [PSA]; R79.89 Other specified abnormal findings of blood chemistry
CPT/HCPCS: 99213; G2211